=== PATIENT | male | born 1935 | race Caucasian/White ===

== ENCOUNTER 2019-08-11 08:27 | Outpatient (CLI) | payer MEDICARE, OTHER, SELFPAY ==
[2019-08-11 09:06] LABS: Basophils # 0.1 10^3/uL (0.0-0.1); Basophils % 0.5 %; Eosinophils # 0.4 10^3/uL (0.0-0.8); Eosinophils % 2.6 %; Hematocrit 50.9 % (42.0-52.0); Hemoglobin 16.2 g/dL (11.7-16.6); Lymphocytes # 2.2 10^3/uL (0.8-4.8); Lymphocytes % 14.1 %; Mean Corpuscular HGB Conc 31.8 g/dL (30.0-36.0); Mean Corpuscular Hemoglobin 28.7 pg (28.0-34.0); Mean Corpuscular Volume 90.1 fL (80-94); Mean Platelet Volume 10.3 fL (7.4-10.4); Monocytes # 1.9 10^3/uL (0.2-0.9); Monocytes % 12.6 %; Neutrophils # 10.7 10^3/uL (1.8-7.7); Neutrophils % 69.7 %; Nucleated Red Blood Cells % 0 %; Platelet Count 312 10^3/cmm (130-400); Red Blood Count 5.65 10^6/uL (4.1-5.3); Red Cell Distribution Width 14.6 % (12.1-15.1); White Blood Count 15.3 10^3/uL (4.0-10.0)
[2019-08-11 09:25] LABS: Ferritin 57 ng/mL (30-400); Iron 60 ug/dL (59-158); Percent Saturation 22.6 % (20-50); Total Iron Binding Capacity 265 mcg/dl; Unsaturated Iron Binding 205 ug/dL (112-347)
== END 2019-08-11 08:28 | disposition home or self-care (01) ==
LOC: ONCMED 08:31
PROVIDERS: Family Provider Family Medicine; PCP Family Medicine; Visit Provider Internal Medicine Hematology & Oncology
DX: D50.9 Iron deficiency anemia, unspecified (principal)
CPT/HCPCS: 82728; 83540; 83550; 85025

== ENCOUNTER 2019-08-15 08:39 | Outpatient (CLI) | payer MEDICARE, OTHER, SELFPAY ==
--- NOTE | 2019-08-15 09:10 | ONC FU_ITS ---
Dr. Olivo follow up note Patient: Gerardo Pardo Unit #: [id number]: 1935 Dicatated By: Zaid Olivo M.D.Date of Visit:Aug 15, 2019 Onc Med Follow-up/Prog Note History of Present Illness: Mr. Gerardo Pardo, is a 83-year-old gentleman with long-standing history of mild anemia recently started having progressive weakness and palpitation and lab workup done in early August 2018 showed severe anemia, hemoglobin 6.9 g , for which he was given 2 units of packed RBCs with that his hemoglobin improved to 8.9 and his anemia workup done on 09/17/2018 showed low ferritin, 15 , TIBC 391, total iron 16, iron saturation 4%L patient was started on oral iron ferrous sulfate 1 tablet by mouth every other day. Now complaining of indigestion Denies any history of melena hematochezia, denies any history of hemoptysis or hematemesis, denies any history of hematuria, denies any history of jaundice Patient has history of coronary artery disease and recently underwent coronary artery stent placement and he was treated with Plavix and aspirin, as per patient and his daughter after his hemoglobin dropped to 6.9 g Plavix was discontinued and but continued with aspirin.and later on plavix was added Patient has history of bladder cancer diagnosed in 1996 at that time underwent radical cystectomy with neobladder at [facility], no further treatment was needed No history of EGD exam.As per daughter colonoscopy was done 6- 7 years ago in [place] for rectal bleed at that time he was told that it was due to hemorrhoids and couple of benign polyps were also removed Last time parenteral iron Injectafer 750 mg weekly ???2 was given in February 2019 with that follow-up CBC done on 05/12/2019 showed hemoglobin 16.1 hematocrit 48.6 ferritin under 17 TIBC 197 B12 356. Patient was seen by Dr. Falcon for GI evaluation but as per patient evaluation was postponed because of normalization of hemoglobin and iron studies Came for follow-up, denies any specific complaints, no nausea or vomiting, no fever or chills, no melena or hematochezia, no shortness of breath or palpitation, no jaundice. Medications: C 500 2 Tablet (of 500 mg) Oral daily, Cranberry Extract 1 Capsule (of 200 mg) Oral daily, Crestor 1 Tablet (of 20 mg) Oral daily, Methenamine 0.5 Tablet (of 500 mg) b.i.d., Metoprolol Tartrate 0.5 Tablet (of 25 mg) Oral daily, Multi Vitamin/Minerals 1 Tablet Oral daily, Plavix 1 Tablet (of 75 mg) Oral daily, Probiotic 1 Capsule Oral daily, raNITIdine HCl 1 Tablet (of 150 mg) Oral daily, Stool Softener 1 Capsule (of 100 mg) Oral b.i.d. Allergies: No Known Allergies. Review of Systems: Constitutional - Appetite is fair and weight is stable. No fever, chills, hot flashes, or night sweats. Energy level is fair, ENMT - No sinus congestion/drainage. No mouth sores. No sore throat or difficulty swallowing, Hematologic/Lymphatic - No abnormal bruising or bleeding, Respiratory - No shortness of breath. No cough. No pleuritic pain or hemoptysis, Cardiovascular - No angina pain. No palpitations, Gastrointestinal - No nausea or vomiting. No heartburn or acid reflux. No diarrhea or constipation. No blood in the stool or black stools, Genitourinary (M) - No dysuria or hematuria. No urinary frequency. No urgency or incontinence, Musculoskeletal - No joint or bone pain, Neurologic - No headache or dizziness. No numbness/paresthesias or other focal neurologic symptoms, Psychiatric - No anxiety or depression. No insomnia. Vital Signs: Performed on Aug 15, 2019 08:44 Height - 68.00 in Weight - 177.2 lbs (LOW) BSA - 1.94 sq.m BMI - 26.94 Temperature - 98.2 F (LOW) Pulse - 88 /min Respiration - 18 /min BP - 149/67 mm(hg) (HIGH) O2 Sat - 98 % Pain - 0 Performance Status: 0 - Fully active, able to carry on all predisease activities without restrictions. (ECOG) Physical Examination: ENMT - No oral exudates, ulcers, masses, thrush or mucositis. Oropharynx clear. Tongue normal, Respiratory - Lungs are clear to auscultation without rhonchi or wheezing, Cardiovascular - Regular rate and rhythm of heart, Abdomen - Non-tender, non-distended, Good bowel sounds. No guarding or rebound tenderness. No pulsatile masses, Extremities - no edema. Lab/Imaging: Test performed on May 12, 2019 10:05 Ferritin 117.0 ng/ml Iron 56 ug/dL Vitamin B12 356 pg/mL % Iron Saturation 22.1 % UIBC 197 ug/dL WBC 10.0 10 3/uL RBC 5.87 10 6/uL HGB 16.1 g/dL HCT 48.6 % MCV 82.8 fl MCH 27.4 pg MCHC 33.1 g/dl RDW 19.6 % Platelet Count 301 10 3/cmm MPV 10.1 fl Neutrophils 6.9 10 3/uL Lymphocytes 1.9 10 3/uL Monocytes 1.0 10 3/uL Eosinophils 0.2 10 3/uL Basophils 0.1 10 3/uL Neutrophil % 69.2 % Lymphocyte % 18.5 % Monocyte % 9.6 % Eosinophil % 1.9 % Basophils % 0.5 % Impression: Microcytic hypochromic anemia due to iron deficiency due to chronic GI blood loss or malabsorption but most likely due to chronic blood loss. Iron studies done on 09/17/2018 showed ferritin 15 L, TIBC 391, iron saturation 4%, reticulocyte count 3.5% as per patient , Status post 2 units of packed RBCs for hemoglobin 6.9 in early August 2018 Status post Injectafer 750 mg weekly ???2 and August 2018 with good response and repeated again in February 2019 for development of iron deficiency anemia again. Last colonoscopy was done 6-7 years ago for rectal bleeding, as per daughter it was due to hemorrhoids and couple of benign polyps were removed. Plan: Discussed with patient regarding his labs white blood count 15.3 hemoglobin 16.2 crit 50.9 platelets 312,000 ferritin 57 compared 117 on 05/12/2019, iron 60 and Clinically, patient is doing well, denies any new symptoms, more energetic, his follow-up lab shows hemoglobin still in normal range although ferritin level has gone down to 57 from 117, 3 months ago after Injectafer infusion. We'll continue to monitor and he will return to clinic in 2 months with CBC and iron studies and if there is a drop in his iron stores or hemoglobin, we'll consider Injectafer. Again ,discussed with patient regarding reasons for drop in his ferritin level which could be due to iron malabsorption or chronic GI blood loss, patient was supposed to see Dr. Falcon for GI evaluation, somehow, patient had decided to postpone it, patient was advised to reconsider it especially if hemoglobin/iron stores continued to go down. Signed By: Zaid Olivo M.D. <<Signature on File>>
== END 2019-08-15 08:40 | disposition home or self-care (01) ==
LOC: ONCMED 08:43
PROVIDERS: Family Provider Family Medicine; PCP Family Medicine; Visit Provider Internal Medicine Hematology & Oncology
DX: D50.9 Iron deficiency anemia, unspecified (principal); I25.10 Atherosclerotic heart disease of native coronary artery without angina pectoris; Z79.899 Other long term (current) drug therapy; Z79.02 Long term (current) use of antithrombotics/antiplatelets; Z79.82 Long term (current) use of aspirin; Z95.5 Presence of coronary angioplasty implant and graft; Z85.51 Personal history of malignant neoplasm of bladder; Z86.010 Personal history of colon polyps; Z90.6 Acquired absence of other parts of urinary tract
CPT/HCPCS: G0463

== ENCOUNTER 2019-10-20 13:37 | Outpatient (CLI) | payer MEDICARE, OTHER, SELFPAY ==
[2019-10-20 14:02] LABS: Basophils # 0.1 10^3/uL (0.0-0.1); Basophils % 0.6 %; Eosinophils # 0.5 10^3/uL (0.0-0.8); Eosinophils % 3.8 %; Hematocrit 47.3 % (42.0-52.0); Hemoglobin 15.7 g/dL (11.7-16.6); Lymphocytes # 3.2 10^3/uL (0.8-4.8); Lymphocytes % 25.2 %; Mean Corpuscular HGB Conc 33.2 g/dL (30.0-36.0); Mean Corpuscular Hemoglobin 29.2 pg (28.0-34.0); Mean Corpuscular Volume 88.1 fL (80-94); Mean Platelet Volume 9.9 fL (7.4-10.4); Monocytes # 1.7 10^3/uL (0.2-0.9); Monocytes % 13.1 %; Neutrophils # 7.2 10^3/uL (1.8-7.7); Neutrophils % 56.8 %; Nucleated Red Blood Cells % 0 %; Platelet Count 350 10^3/cmm (130-400); Red Blood Count 5.37 10^6/uL (4.1-5.3); Red Cell Distribution Width 14.6 % (12.1-15.1); White Blood Count 12.7 10^3/uL (4.0-10.0)
[2019-10-20 14:20] LABS: Ferritin 59 ng/mL (30-400); Iron 57 ug/dL (59-158); Percent Saturation 20.2 % (20-50); Total Iron Binding Capacity 281 mcg/dl; Unsaturated Iron Binding 224 ug/dL (112-347)
== END 2019-10-20 13:38 | disposition home or self-care (01) ==
LOC: ONCMED 13:42
PROVIDERS: Family Provider Family Medicine; PCP Family Medicine; Visit Provider Internal Medicine Hematology & Oncology
DX: D50.9 Iron deficiency anemia, unspecified (principal)
CPT/HCPCS: 36415; 82728; 83540; 83550; 85025

== ENCOUNTER 2020-02-14 09:45 | Outpatient (CLI) | payer MEDICARE, OTHER, SELFPAY ==
[2020-02-14 10:10] LABS: Basophils # 0.1 10^3/uL (0.0-0.1); Basophils % 0.6 %; Eosinophils # 0.3 10^3/uL (0.0-0.8); Eosinophils % 2.6 %; Hemoglobin 15.5 g/dL (11.7-16.6); Lymphocytes # 2.4 10^3/uL (0.8-4.8); Lymphocytes % 21.3 %; Mean Corpuscular Volume 87.9 fL (80-94); Mean Platelet Volume 10.1 fL (7.4-10.4); Monocytes # 1.4 10^3/uL (0.2-0.9); Monocytes % 12.2 %; Neutrophils % 62.8 %; Nucleated Red Blood Cells % 0 %; Platelet Count 334 10^3/cmm (130-400); Red Blood Count 5.35 10^6/uL (4.1-5.3); Red Cell Distribution Width 14.3 % (12.1-15.1); White Blood Count 11.2 10^3/uL (4.0-10.0)
[2020-02-14 10:29] LABS: Ferritin 83 ng/mL (30-400); Iron 67 ug/dL (59-158); Percent Saturation 26.8 % (20-50); Total Iron Binding Capacity 250 mcg/dl; Unsaturated Iron Binding 183 ug/dL (112-347)
== END 2020-02-14 09:46 | disposition home or self-care (01) ==
PROVIDERS: PCP Family Medicine; Visit Provider Internal Medicine Hematology & Oncology
DX: D50.9 Iron deficiency anemia, unspecified (principal)
CPT/HCPCS: 36415; 82728; 83540; 83550; 85025

== ENCOUNTER 2020-04-19 14:57 | Outpatient (CLI) | payer MEDICARE, OTHER, SELFPAY ==
[2020-04-19 16:13] LABS: Basophils # 0.1 10^3/uL (0.0-0.1); Basophils % 0.6 %; Eosinophils # 0.3 10^3/uL (0.0-0.8); Eosinophils % 3.3 %; Hematocrit 45.9 % (42.0-52.0); Hemoglobin 14.7 g/dL (11.7-16.6); Lymphocytes # 2.4 10^3/uL (0.8-4.8); Lymphocytes % 24.8 %; Mean Corpuscular Hemoglobin 28.4 pg (28.0-34.0); Mean Corpuscular Volume 88.8 fL (80-94); Mean Platelet Volume 10.9 fL (7.4-10.4); Monocytes # 1.5 10^3/uL (0.2-0.9); Monocytes % 15.2 %; Neutrophils # 5.43 10^3/uL (1.8-7.7); Neutrophils % 55.5 %; Nucleated Red Blood Cells % 0 %; Platelet Count 300 10^3/cmm (130-400); Red Blood Count 5.17 10^6/uL (4.1-5.3); Red Cell Distribution Width 14.8 % (12.1-15.1); White Blood Count 9.8 10^3/uL (4.0-10.0)
[2020-04-19 16:21] LABS: Alanine Aminotransferase 10 U/L (0-41); Albumin Level 3.8 g/dL (3.5-5.2); Alkaline Phosphatase 79 IU/L (40-130); Blood Urea Nitrogen 18 mg/dL (8-23); Calcium 9.4 mg/dL (8.5-10.5); Carbon Dioxide 25 mmol/L (22-29); Chloride 108 mmol/L (98-107); Ferritin 52 ng/mL (30-400); Globulin 2.5 g/dL (1.3-4.6); Glucose 133 mg/dL (65-115); Iron 43 ug/dL (59-158); Osmolality Calculated 300 mOsm/kg (285-295); Sodium 143 mmol/L (136-145); Total Bilirubin 0.2 mg/dL (0.15-1.2); Total Protein 6.3 g/dL (6.6-8.7)
[2020-04-19 16:27] LABS: Aspartate Amino Transferase 15 U/L (0-40)
--- NOTE | 2020-04-19 16:48 | ONC FU_ITS ---
Dr. Olivo follow up note Patient: Gerardo Pardo Unit #: [id number]: 1935 Dicatated By: Zaid Olivo M.D.Date of Visit:Apr 19, 2020 Onc Med Follow-up/Prog Note History of Present Illness: Mr. Gerardo Pardo, is a 84-year-old gentleman with long-standing history of mild anemia recently started having progressive weakness and palpitation and lab workup done in early August 2018 showed severe anemia, hemoglobin 6.9 g , for which he was given 2 units of packed RBCs with that his hemoglobin improved to 8.9 and his anemia workup done on 09/17/2018 showed low ferritin, 15 , TIBC 391, total iron 16, iron saturation 4%L patient was started on oral iron ferrous sulfate 1 tablet by mouth every other day. Now complaining of indigestion Denies any history of melena hematochezia, denies any history of hemoptysis or hematemesis, denies any history of hematuria, denies any history of jaundice Patient has history of coronary artery disease and recently underwent coronary artery stent placement and he was treated with Plavix and aspirin, as per patient and his daughter after his hemoglobin dropped to 6.9 g Plavix was discontinued and but continued with aspirin.and later on plavix was added Patient has history of bladder cancer diagnosed in 1996 at that time underwent radical cystectomy with neobladder at [facility], no further treatment was needed No history of EGD exam.As per daughter colonoscopy was done 6- 7 years ago in [place] for rectal bleed at that time he was told that it was due to hemorrhoids and couple of benign polyps were also removed Last time parenteral iron Injectafer 750 mg weekly ???2 was given in February 2019 with that follow-up CBC done on 05/12/2019 showed hemoglobin 16.1 hematocrit 48.6 ferritin under 17 TIBC 197 B12 356. Patient was seen by Dr. Falcon for GI evaluation but as per patient evaluation was postponed because of normalization of hemoglobin and iron studies Came for follow-up, denies any specific complaints, no fever chills, no nausea or vomiting, no diarrhea or constipation, no palpitation no shortness of breath. No jaundice Medications: C 500 2 Tablet (of 500 mg) Oral daily, Cranberry Extract 1 Capsule (of 200 mg) Oral daily, Crestor 1 Tablet (of 20 mg) Oral daily, Methenamine 0.5 Tablet (of 500 mg) b.i.d., Metoprolol Tartrate 0.5 Tablet (of 25 mg) Oral daily, Multi Vitamin/Minerals 1 Tablet Oral daily, Plavix 1 Tablet (of 75 mg) Oral daily, Probiotic 1 Capsule Oral daily, raNITIdine HCl 1 Tablet (of 150 mg) Oral daily, Stool Softener 1 Capsule (of 100 mg) Oral b.i.d. Allergies: No Known Allergies. Review of Systems: Constitutional - Appetite is fair and weight is stable. No fever, chills, hot flashes, or night sweats. Energy level is fair, ENMT - No sinus congestion/drainage. No mouth sores. No sore throat or difficulty swallowing, Hematologic/Lymphatic - No abnormal bruising or bleeding, Respiratory - No shortness of breath. No cough. No pleuritic pain or hemoptysis, Cardiovascular - No angina pain. No palpitations, Gastrointestinal - No nausea or vomiting. No heartburn or acid reflux. No diarrhea or constipation. No blood in the stool or black stools, Genitourinary (M) - No dysuria or hematuria. No urinary frequency. No urgency or incontinence, Musculoskeletal - No joint or bone pain, Neurologic - No headache or dizziness. No numbness/paresthesias or other focal neurologic symptoms, Psychiatric - No anxiety or depression. No insomnia. Vital Signs: Performed on Apr 19, 2020 16:25 Height - 68.00 in Weight - 172.2 lbs (LOW) BSA - 1.92 sq.m BMI - 26.18 Temperature - 98.6 F Pulse - 70 /min Respiration - 18 /min BP - 145/76 mm(hg) (HIGH) O2 Sat - 96 % Pain - 0 Performance Status: 0 - Fully active, able to carry on all predisease activities without restrictions. (ECOG) Physical Examination: ENMT - No mouth sores, no thrush, no jaundice, Respiratory - Lungs are clear to auscultation, Cardiovascular - Regular rate and rhythm of heart, Abdomen - Soft, bowel sounds present, Extremities - No visible edema. Lab/Imaging: Test performed on Feb 14, 2020 09:58 Ferritin 83 ng/mL Iron 67 mcg/dL Iron Binding Capacity (TIBC) 250 mcg/dl % Iron Saturation 26.8 % UIBC 183 mcg/dL WBC 11.2 10 3/uL RBC 5.35 10 6/uL HGB 15.5 g/dL HCT 47.0 % MCV 87.9 fL MCH 29.0 pg MCHC 33.0 g/dL RDW 14.3 % Platelet Count 334 10 3/cmm MPV 10.1 fL Neutrophils 7.00 10 3/uL Lymphocytes 2.4 10 3/uL Monocytes 1.4 10 3/uL Eosinophils 0.3 10 3/uL Basophils 0.1 10 3/uL Neutrophil % 62.8 % Lymphocyte % 21.3 % Monocyte % 12.2 % Eosinophil % 2.6 % Basophils % 0.6 % NRBC % 0 % Impression: Microcytic hypochromic anemia due to iron deficiency due to chronic GI blood loss or malabsorption but most likely due to chronic blood loss. Iron studies done on 09/17/2018 showed ferritin 15 L, TIBC 391, iron saturation 4%, reticulocyte count 3.5% as per patient , Status post 2 units of packed RBCs for hemoglobin 6.9 in early August 2018 Status post Injectafer 750 mg weekly ???2 and August 2018 with good response and repeated again in February 2019 for development of iron deficiency anemia again. Last colonoscopy was done 6-7 years ago for rectal bleeding, as per daughter it was due to hemorrhoids and couple of benign polyps were removed. Plan: Discussed with patient regarding his labs white blood count 9.8 hemoglobin 14.7 crit 45.9 platelets 300,000 ferritin 52 compared to 83 on February 14, 2020, creatinine 0.8, sodium 143 Clinically, patient doing well with no new signs symptoms, no evidence of gross bleeding, his follow-up labs shows mild drop in his hemoglobin but still in normal range and further drop in ferritin, will continue to monitor and return to clinic in 3 months with CBC and iron studies. Signed By: Zaid Olivo M.D. <<Signature on File>>
[2020-04-20 03:34] LABS: Percent Saturation 14.9 % (20-50); Total Iron Binding Capacity 287 mcg/dl; Unsaturated Iron Binding 244 ug/dL (112-347)
== END 2020-04-19 14:58 | disposition home or self-care (01) ==
PROVIDERS: PCP Family Medicine; Visit Provider Internal Medicine Hematology & Oncology
DX: D50.9 Iron deficiency anemia, unspecified (principal); K64.9 Unspecified hemorrhoids; Z86.010 Personal history of colon polyps
CPT/HCPCS: 36415; 80053; 82728; 83540; 83550; 85025; G0463

== ENCOUNTER 2020-07-20 08:12 | Outpatient (CLI) | payer MEDICARE, OTHER, SELFPAY ==
[2020-07-20 09:13] LABS: Basophils # 0.1 10^3/uL (0.0-0.1); Basophils % 0.7 %; Eosinophils # 0.4 10^3/uL (0.0-0.8); Eosinophils % 3.1 %; Hematocrit 42.6 % (42.0-52.0); Hemoglobin 13.9 g/dL (11.7-16.6); Lymphocytes # 3.1 10^3/uL (0.8-4.8); Lymphocytes % 25.2 %; Mean Corpuscular HGB Conc 32.6 g/dL (30.0-36.0); Mean Corpuscular Hemoglobin 28.1 pg (28.0-34.0); Mean Corpuscular Volume 86.2 fL (80-94); Mean Platelet Volume 10.8 fL (7.4-10.4); Monocytes # 1.6 10^3/uL (0.2-0.9); Monocytes % 12.9 %; Neutrophils # 7.01 10^3/uL (1.8-7.7); Neutrophils % 57.8 %; Nucleated Red Blood Cells % 0 %; Platelet Count 343 10^3/cmm (130-400); Red Blood Count 4.94 10^6/uL (4.1-5.3); Red Cell Distribution Width 14.6 % (12.1-15.1); White Blood Count 12.1 10^3/uL (4.0-10.0)
[2020-07-20 09:33] LABS: Ferritin 31 ng/mL (30-400); Iron 79 ug/dL (59-158); Percent Saturation 27.2 % (20-50); Total Iron Binding Capacity 290 mcg/dl; Unsaturated Iron Binding 211 ug/dL (112-347)
--- NOTE | 2020-07-20 10:04 | ONC FU_ITS ---
Dr. Olivo follow up note Patient: Gerardo Pardo Unit #: [id number]: 1935 Dicatated By: Zaid Olivo M.D.Date of Visit:Jul 20, 2020 Onc Med Follow-up/Prog Note History of Present Illness: Mr. Gerardo Pardo, is a 84-year-old gentleman with long-standing history of mild anemia recently started having progressive weakness and palpitation and lab workup done in early August 2018 showed severe anemia, hemoglobin 6.9 g , for which he was given 2 units of packed RBCs with that his hemoglobin improved to 8.9 and his anemia workup done on 09/17/2018 showed low ferritin, 15 , TIBC 391, total iron 16, iron saturation 4%L patient was started on oral iron ferrous sulfate 1 tablet by mouth every other day. Now complaining of indigestion Denies any history of melena hematochezia, denies any history of hemoptysis or hematemesis, denies any history of hematuria, denies any history of jaundice Patient has history of coronary artery disease and recently underwent coronary artery stent placement and he was treated with Plavix and aspirin, as per patient and his daughter after his hemoglobin dropped to 6.9 g Plavix was discontinued and but continued with aspirin.and later on plavix was added Patient has history of bladder cancer diagnosed in 1996 at that time underwent radical cystectomy with neobladder at [facility], no further treatment was needed No history of EGD exam.As per daughter colonoscopy was done 6- 7 years ago in [place] for rectal bleed at that time he was told that it was due to hemorrhoids and couple of benign polyps were also removed Last time parenteral iron Injectafer 750 mg weekly ???2 was given in February 2019 with that follow-up CBC done on 05/12/2019 showed hemoglobin 16.1 hematocrit 48.6 ferritin under 17 TIBC 197 B12 356. Patient was seen by Dr. Falcon for GI evaluation but as per patient evaluation was postponed because of normalization of hemoglobin and iron studies Came for follow-up, denies any specific complaints, no fever chills, no nausea or vomiting, no diarrhea or constipation, no melena or hematochezia, no shortness of breath or palpitation, no jaundice Medications: C 500 2 Tablet (of 500 mg) Oral daily, Cranberry Extract 1 Capsule (of 200 mg) Oral daily, Crestor 1 Tablet (of 20 mg) Oral daily, Methenamine 0.5 Tablet (of 500 mg) b.i.d., Metoprolol Tartrate 0.5 Tablet (of 25 mg) Oral daily, Multi Vitamin/Minerals 1 Tablet Oral daily, Plavix 1 Tablet (of 75 mg) Oral daily, Probiotic 1 Capsule Oral daily, Stool Softener 1 Capsule (of 100 mg) Oral b.i.d. Allergies: No Known Allergies. Review of Systems: Constitutional - Complains of mild fatigue. Denies appetite, fever, night sweats and weight change, Allergic/Immunologic - Denies allergies, Eyes - Denies blurred vision and double vision, ENMT - Denies dysphagia, ear pain, epistaxis, problems with hearing, mouth dryness, stomatitis, altered taste and tinnitus, Endocrine - Denies diabetes and thyroid disease, Hematologic/Lymphatic - Complains of easy bruising. Denies lymph node tenderness, Respiratory - Complains of a mild cough which is non-productive. Complains of mild dyspnea associated with normal activity. Denies hemoptysis and wheezing, Cardiovascular - Denies arrhythmias, chest pain and edema, Gastrointestinal - Complains of heartburn / dyspepsia. Denies abdominal pain, constipation, diarrhea, melena / GI bleeding, nausea and vomiting, Genitourinary (M) - Complains of nocturia occasionally. Denies dysuria, frequency, hematuria and urgency, Musculoskeletal - Complains of arthritis. Denies bone pain, joint pain and muscle weakness, Integumentary - Denies rash, Neurologic - Denies disorientation, dizziness, abnormal gait and headaches, Psychiatric - Denies depression. Vital Signs: Performed on Jul 20, 2020 09:09 Height - 68.00 in Weight - 174.2 lbs (HIGH) BSA - 1.93 sq.m BMI - 26.49 Temperature - 98.4 F Pulse - 80 /min Respiration - 20 /min BP - 110/70 mm(hg) O2 Sat - 95 % (LOW) Pain - 0 Performance Status: 1 - No physically strenuous activity, but ambulatory and able to carry out light or sedentary work (e.g. office work, light house work). (ECOG) Physical Examination: ENMT - No mouth sores, no thrush, no jaundice, Respiratory - Lungs are clear to auscultation, Cardiovascular - Regular rate and rhythm of heart, Abdomen - Soft, bowel sounds present, Extremities - No visible edema. Lab/Imaging: Test performed on Apr 19, 2020 15:35 Ferritin 52 ng/mL Iron 43 mcg/dL Sodium 143 mmol/L Iron Binding Capacity (TIBC) 287 mcg/dl Potassium 4.0 mmol/L % Iron Saturation 14.9 % Chloride 108 mmol/L CO2 25 mmol/L UIBC 244 mcg/dL Anion Gap 14.0 BUN 18 mg/dL Creatinine 0.8 mg/dL Cr Clearance (Est) 74.58 mL/min Glucose 133 mg/dL Osmolality - Calculated 300 mOsm/kg Calcium 9.4 mg/dL Protein, Total 6.3 g/dL Albumin 3.8 g/dL Globulin 2.5 g/dL Bilirubin, Total 0.2 mg/dL ALT (SGPT) 10 U/L AST (SGOT) 15 U/L Alkaline Phosphatase 79 IU/L WBC 9.8 10 3/uL RBC 5.17 10 6/uL HGB 14.7 g/dL HCT 45.9 % MCV 88.8 fL MCH 28.4 pg MCHC 32.0 g/dL RDW 14.8 % Platelet Count 300 10 3/cmm MPV 10.9 fL Neutrophils 5.43 10 3/uL Lymphocytes 2.4 10 3/uL Monocytes 1.5 10 3/uL Eosinophils 0.3 10 3/uL Basophils 0.1 10 3/uL Neutrophil % 55.5 % Lymphocyte % 24.8 % Monocyte % 15.2 % Eosinophil % 3.3 % Basophils % 0.6 % NRBC % 0 % Impression: Microcytic hypochromic anemia due to iron deficiency due to chronic GI blood loss or malabsorption but most likely due to chronic blood loss. Iron studies done on 09/17/2018 showed ferritin 15 L, TIBC 391, iron saturation 4%, reticulocyte count 3.5% as per patient , Status post 2 units of packed RBCs for hemoglobin 6.9 in early August 2018 Status post Injectafer 750 mg weekly ???2 and August 2018 with good response and repeated again in February 2019 for development of iron deficiency anemia again. Last colonoscopy was done 6-7 years ago for rectal bleeding, as per daughter it was due to hemorrhoids and couple of benign polyps were removed. Plan: Discussed with patient regarding his labs white blood count 12.1 hemoglobin 13.9 g hematocrit 42.6 platelets 343,000 iron studies shows ferritin 31 compared to 52 on April 19, 2020 iron 79 iron saturation 27.2% TIBC 290 Clinically, patient is doing well with no new signs symptoms, his follow-up CBC shows hemoglobin still in normal range and further drop in his iron stores but still in normal range, will continue to monitor return to clinic in 2 months with CBC and iron studies. Signed By: Zaid Olivo M.D. <<Signature on File>>
== END 2020-07-20 08:13 | disposition home or self-care (01) ==
LOC: ONCMED 08:14
PROVIDERS: PCP Family Medicine; Visit Provider Internal Medicine Hematology & Oncology
DX: D50.9 Iron deficiency anemia, unspecified (principal); Z86.010 Personal history of colon polyps
CPT/HCPCS: 36415; 82728; 83540; 83550; 85025; G0463

== ENCOUNTER 2020-09-19 09:47 | Outpatient (CLI) | payer MEDICARE, OTHER, SELFPAY ==
[2020-09-19 10:07] LABS: Basophils # 0.1 10^3/uL (0.0-0.1); Basophils % 0.5 %; Hematocrit 44.3 % (42.0-52.0); Hemoglobin 14.1 g/dL (11.7-16.6); Lymphocytes # 2.7 10^3/uL (0.8-4.8); Lymphocytes % 26.1 %; Mean Corpuscular HGB Conc 31.8 g/dL (30.0-36.0); Mean Corpuscular Hemoglobin 27.9 pg (28.0-34.0); Mean Corpuscular Volume 87.5 fL (80-94); Mean Platelet Volume 10.5 fL (7.4-10.4); Monocytes # 1.1 10^3/uL (0.2-0.9); Monocytes % 10.4 %; Neutrophils # 6.42 10^3/uL (1.8-7.7); Neutrophils % 62.3 %; Nucleated Red Blood Cells % 0 %; Platelet Count 335 10^3/cmm (130-400); Red Blood Count 5.06 10^6/uL (4.1-5.3); Red Cell Distribution Width 14.7 % (12.1-15.1); White Blood Count 10.3 10^3/uL (4.0-10.0)
[2020-09-19 10:30] LABS: Ferritin 20 ng/mL (30-400); Iron 46 ug/dL (59-158); Percent Saturation 14.6 % (20-50); Total Iron Binding Capacity 313 mcg/dl; Unsaturated Iron Binding 267 ug/dL (112-347)
--- NOTE | 2020-09-30 13:58 | ONC FU_ITS ---
Marisa Lawson Patient Note Patient: Gerardo Pardo Unit #: [id number]: 1935 Dictated By: Elisabeth MenendezDate of Visit: Sep 19, 2020 Onc MED Follow-Up/Prog Note Chief Complaint: Iron deficiency anemia History of Present Illness: Mr. Pardo is an 85-year-old gentleman with long-standing history of mild anemia. He started having progressive weakness and palpitations in early August 2018. His lab work up at that time showed severe anemia, hemoglobin 6.9 g , for which he was given 2 units of packed RBCs. With the transfusion services, his hemoglobin improved to 8.9. His anemia workup on 09/17/2018 showed low ferritin 15 , TIBC 391, total iron 16, iron saturation 4%. Mr Pardo was started on oral iron ferrous sulfate 1 tablet by mouth every other day. He had difficulty tolerating oral iron due to GI distress. He denied any history of melena, hematochezia, hemoptysis or hematemesis. He had not had any history of hematuria or jaundice. Mr Pardo has history of coronary artery disease and underwent coronary artery stent placement. He was treated with Plavix and aspirin, as per patient and his daughter after his hemoglobin dropped to 6.9 g Plavix was discontinued and but continued with aspirin.and later on plavix was added again. Patient has history of bladder cancer diagnosed in 1996 at that time underwent radical cystectomy with neobladder at [facility], no further treatment was needed No history of EGD exam. As per daughter colonoscopy was done 6- 7 years ago in [place] for rectal bleed at that time he was told that it was due to hemorrhoids and couple of benign polyps were also removed Last time parenteral iron Injectafer 750 mg weekly ???2 was given in February 2019 with that follow-up CBC done on 05/12/2019 showed hemoglobin 16.1 hematocrit 48.6 ferritin under 17 TIBC 197 B12 356. Patient was seen by Dr. Falcon for GI evaluation but as per patient evaluation was postponed because of normalization of hemoglobin and iron studies Mr. Pardo is followed by Dr. Olivo. His last visit with Dr. Olivo was July 20, 2020. He was doing well at that time and continue to have a normal hemoglobin. Mr. Pardo is here today for follow-up. He states overall he is doing well. He states he feels good. His energy is good. He has had some urine Gil tract infection off and on but follows with Dr. Herbert for this. He sees him again in November 2020. He has no current symptoms. He denies any new shortness of breath orthopnea. He has had no cravings. He states again his energy is really good. He denies any nausea or vomiting. He has had no evidence of bleeding or bruising. He states his bowel function is normal for him. He denies any lower extremity edema. He denies any chest pain or palpitations. His ECOG is 0. Past Medical History: Myocardial infarction in 2018 Bladder infection sepsis in 2016 Past Surgical History: Stents x2 in 2018 Neobladder in 1996 Elbow /nerve in 1971 Allergies: No Known Allergies. Medications: C 500 2 Tablet (of 500 mg) Oral daily Cranberry Extract 1 Capsule (of 200 mg) Oral daily Crestor 1 Tablet (of 20 mg) Oral daily Methenamine 0.5 Tablet (of 500 mg) b.i.d. Metoprolol Tartrate 0.5 Tablet (of 25 mg) Oral daily Multi Vitamin/Minerals 1 Tablet Oral daily Plavix 1 Tablet (of 75 mg) Oral daily Probiotic 1 Capsule Oral daily Stool Softener 1 Capsule (of 100 mg) Oral b.i.d. Family History: Mr. Pardo's mother at age 72: congestive heart failure. Mr. Pardo's father at age 88: colon cancer, and stroke. Mr. Pardo has 1 sister who is alive: heart condition. Social History: Mr. Pardo is single and he is retired. He is a daily smoker who has smoked 0.5 packs/day for 64 years. He drinks occasionally. alcohol consumption is an occasional occurance about twice a month. Review Of Symptoms: see above Vital Signs: Performed on Sep 19, 2020 12:10 Height - 68.00 in Weight - 175.8 lbs (HIGH) BSA - 1.93 sq.m BMI - 26.73 Temperature - 98.1 F (LOW) Pulse - 72 /min Respiration - 18 /min BP - 127/73 mm(hg) O2 Sat - 98 % Pain - 0,0 - Fully active, able to carry on all predisease activities without restrictions. (ECOG) Physical Examination: Constitutional Alert, oriented, no acute distress. Skin pink, warm and dry. Head Normocephalic; atraumatic. Eyes Conjunctivae and sclerae are clear and without icterus. Pupils are reactive and equal. Neck No jugular venous distension. Hematologic/Lymphatic No petechiae or purpura. Respiratory Lungs are clear to auscultation without rhonchi or wheezing. Cardiovascular Regular rate and rhythm of heart without murmurs,clicks, gallops or rubs. Back/Spine Non-tender to palpation. Extremities No visible deformities, no cyanosis, clubbing or edema. Musculoskeletal No tenderness or swelling, normal range of motion without obvious weakness. Integumentary No rashes or lesions. Neurologic No sensory or motor deficits, normal cerebellar function, normal gait. Psychiatric Alert and oriented times three. Coherent speech. Verbalizes understanding of our discussions today. Laboratory:Test performed on Sep 19, 2020 09:56 Ferritin 20 ng/mL Iron 46 mcg/dL Iron Binding Capacity (TIBC) 313 mcg/dl % Iron Saturation 14.6 % UIBC 267 mcg/dL WBC 10.3 10 3/uL RBC 5.06 10 6/uL HGB 14.1 g/dL HCT 44.3 % MCV 87.5 fL MCH 27.9 pg MCHC 31.8 g/dL RDW 14.7 % Platelet Count 335 10 3/cmm MPV 10.5 fL Neutrophils 6.42 10 3/uL Lymphocytes 2.7 10 3/uL Monocytes 1.1 10 3/uL Eosinophils 0.0 10 3/uL Basophils 0.1 10 3/uL Neutrophil % 62.3 % Lymphocyte % 26.1 % Monocyte % 10.4 % Eosinophil % 0.0 % Basophils % 0.5 % NRBC % 0 % Test performed on Apr 19, 2020 15:35 Sodium 143 mmol/L Potassium 4.0 mmol/L Chloride 108 mmol/L CO2 25 mmol/L Anion Gap 14.0 BUN 18 mg/dL Creatinine 0.8 mg/dL Cr Clearance (Est) 74.58 mL/min Glucose 133 mg/dL Osmolality - Calculated 300 mOsm/kg Calcium 9.4 mg/dL Protein, Total 6.3 g/dL Albumin 3.8 g/dL Globulin 2.5 g/dL Bilirubin, Total 0.2 mg/dL ALT (SGPT) 10 U/L AST (SGOT) 15 U/L Alkaline Phosphatase 79 IU/L Impression: Microcytic hypochromic anemia due to iron deficiency due to chronic GI blood loss or malabsorption but most likely due to chronic blood loss. Iron studies done on 09/17/2018 showed ferritin 15 L, TIBC 391, iron saturation 4%, reticulocyte count 3.5% as per patient , Status post 2 units of packed RBCs for hemoglobin 6.9 in early August 2018 Status post Injectafer 750 mg weekly ???2 and August 2018 with good response and repeated again in February 2019 for development of iron deficiency anemia again. Last colonoscopy was done 6-7 years ago for rectal bleeding, as per daughter it was due to hemorrhoids and couple of benign polyps were removed. Plan: PROBLEMS ADDRESSED TODAY 1. Anemia due to iron deficiency A. Today's labs reviewed in detail and discussed with Mr. Pardo and his daughter, Shantel and a copy was given to them. WBC 10.3, hemoglobin 14.1, hematocrit 44.3, platelets 335,000 ANC is 6420. His iron saturation is 14.6% ferritin is 20 iron is 46 TIBC is 313. B. We discussed that his iron saturations are dropping. In July his iron was 31 his iron saturation was 27.2. His iron saturation in April was 14.9 at which time his ferritin was 52. We could check them again in 1 month to see if they are dropping into make sure his hemoglobin is not starting to drop. Is advised to call if he has any symptoms of fatigue, shortness of breath palpitations or chest pain or any other symptoms that would make him consider that he is starting to become anemic. C. We will plan for follow-up again in 3 months with CBC CMP ferritin and iron studies. D. Mr. Pardo and his daughter were encouraged to contact us in the interim should questions or problems arise. Signed By: Yaneth Menendez. -, AOP Zaid Olivo MD <<Signature on File>>
== END 2020-09-19 09:48 | disposition home or self-care (01) ==
LOC: ONCMED 09:49
PROVIDERS: PCP Family Medicine; Visit Provider Internal Medicine Hematology & Oncology
DX: D50.0 Iron deficiency anemia secondary to blood loss (chronic) (principal); Z79.899 Other long term (current) drug therapy
CPT/HCPCS: 82728; 83540; 83550; 85025; 99214

== ENCOUNTER → 2020-10-26 11:51 | Outpatient (BNVA) | payer MEDICARE, OTHER, SELFPAY | PROVIDERS: PCP Family Medicine; Visit Provider Nurse Practitioner Family | DX: N39.0 Urinary tract infection, site not specified (principal) | CPT/HCPCS: 81003; 87086 ==

== ENCOUNTER 2020-11-28 14:14 | Outpatient (CLI) | payer MEDICARE, OTHER, SELFPAY ==
--- NOTE | 2020-11-28 08:00 | US_ITS ---
WS: [id number] RENAL ULTRASOUND HISTORY: HX OF BLADDER CANCER COMPARISON: 12/03/2017 and 08/06/2018 TECHNIQUE: 2-D and color Doppler imaging of the kidney submitted. Right kidney: 11.1 cm x 5.7 cm x 4.8 cm. Normal size kidney. Lobulated cortex. No hydronephrosis. Cortical scarring is not as well demonstrate d by ultrasound as seen on a prior CT. There is a small cyst from the upper pole measuring 1.6 x 1.3 x 1.3 cm. Left kidney: 8.8 cm x 5.4 cm x 5.4 cm. Mild atrophy of the kidney. Cortical simple cyst from the mid kidney measures 3.0 x 3.1 x 2.9 cm. The re is an additional smaller cysts from the lower pole. No solid mass or obstruction. Aorta: Mild ectasia. No aneurysm. Urinary Bladder: Well-distended neobladder in the pelvis. No intraluminal filling defect. US/US renal BI* [id number] IMPRESSION: 1. Bilateral renal cysts as described above. No solid mass or obstruction. 2. Mild atrophy LEFT kidney. 3. Unremarkable neobladder in the pelvis.
--- NOTE | 2020-11-28 08:45 | XR_ITS ---
WS: [id number] KUB, AP view, 11/28/2020 Clinical Data: HX OF URINARY DIVERSION Comparison: KUB, 12/03/2017 Findings: There are bilateral calcifications overlying the kidneys. The calcifications have not changed from th e prior study. There are clips on both sides of the true pelvis from a cystectomy. The bowel gas pattern is unremarkable. XR/XR KUB [id number] Impression: 1. Bilateral renal calculi unchanged. 2. Cystectomy.
== END 2020-11-28 14:15 | disposition home or self-care (01) ==
LOC: RAD 14:19
PROVIDERS: PCP Family Medicine; Visit Provider Urology
DX: Z98.890 Other specified postprocedural states (principal); Z85.51 Personal history of malignant neoplasm of bladder; N20.0 Calculus of kidney; N26.1 Atrophy of kidney (terminal)
CPT/HCPCS: 74018; 76770; 81003

== ENCOUNTER 2020-12-21 10:24 | Outpatient (CLI) | payer MEDICARE, OTHER, SELFPAY ==
[2020-12-21 11:28] LABS: Basophils # 0.1 10^3/uL (0.0-0.1); Basophils % 0.6 %; Eosinophils # 0.2 10^3/uL (0.0-0.8); Eosinophils % 2.1 %; Hematocrit 21.4 % (42.0-52.0); Lymphocytes # 1.9 10^3/uL (0.8-4.8); Lymphocytes % 19.2 %; Mean Corpuscular HGB Conc 27.1 g/dL (30.0-36.0); Mean Corpuscular Hemoglobin 22.1 pg (28.0-34.0); Mean Corpuscular Volume 81.7 fL (80-94); Mean Platelet Volume 10.4 fL (7.4-10.4); Monocytes # 1.3 10^3/uL (0.2-0.9); Monocytes % 12.9 %; Neutrophils # 6.38 10^3/uL (1.8-7.7); Neutrophils % 64.6 %; Nucleated Red Blood Cells % 0.3 %; Platelet Count 410 10^3/cmm (130-400); Red Blood Count 2.62 10^6/uL (4.1-5.3); Red Cell Distribution Width 16.3 % (12.1-15.1); White Blood Count 9.9 10^3/uL (4.0-10.0)
[2020-12-21 11:37] LABS: Alanine Aminotransferase 6 U/L (0-41); Albumin Level 3.7 g/dL (3.5-5.2); Alkaline Phosphatase 65 IU/L (40-130); Anion Gap 14.2 (5-19); Aspartate Amino Transferase 11 U/L (0-40); Blood Urea Nitrogen 21 mg/dL (8-23); Calcium 8.9 mg/dL (8.5-10.5); Carbon Dioxide 22 mmol/L (22-29); Chloride 106 mmol/L (98-107); Ferritin 5 ng/mL (30-400); Glucose 191 mg/dL (65-115); Iron 14 ug/dL (59-158); Osmolality Calculated 294 mOsm/kg (285-295); Percent Saturation 3.9 % (20-50); Potassium 4.2 mmol/L (3.5-5.1); Sodium 138 mmol/L (136-145); Total Bilirubin 0.2 mg/dL (0.15-1.2); Total Iron Binding Capacity 355 mcg/dl; Total Protein 5.7 g/dL (6.6-8.7); Unsaturated Iron Binding 341 ug/dL (112-347)
[2020-12-21 12:00] LABS: Hemoglobin 5.8 g/dL (11.7-16.6)
[2020-12-21 12:01] LABS: Slide Review Slide Review Perform
== END 2020-12-21 10:25 | disposition home or self-care (01) ==
LOC: ONCMED 10:27
PROVIDERS: Absent Provider Nurse Practitioner; PCP Family Medicine; Visit Provider Internal Medicine Hematology & Oncology
DX: D50.9 Iron deficiency anemia, unspecified (principal); Z79.899 Other long term (current) drug therapy; F17.200 Nicotine dependence, unspecified, uncomplicated
CPT/HCPCS: 36415; 80053; 82728; 83540; 83550; 85025

== ENCOUNTER 2020-12-21 13:14 | Outpatient (CLI) | payer MEDICARE, OTHER, SELFPAY ==
[2020-12-21] VITALS (12 sets, daily range): BP systolic 101–133; BP diastolic 47–84; PULSE 90–102; RESP 16–20; TEMP 36.3–36.9; O2SAT 98–100
[2020-12-21] MEDS: sodium chloride 0.9% (100 ml) 100 ML 10 ML ×2 (15:08→17:09)
--- NOTE | 2020-12-21 19:36 | PC.NURSE ---
TRANSUSION STOPPED DUE TO PATIENT C/O. SEE EVENT REPORT.
== END 2020-12-21 18:55 | disposition left against medical advice (07) ==
LOC: OPOB 13:15 → OBGYN 19:17 → OPOB 12-24 12:36 → OBGYN 12-24 12:36
PROVIDERS: PCP Family Medicine; Visit Provider Family Medicine
DX: D50.8 Other iron deficiency anemias (principal); D50.9 Iron deficiency anemia, unspecified; Z79.899 Other long term (current) drug therapy; F17.200 Nicotine dependence, unspecified, uncomplicated
CPT/HCPCS: 36415; 36430; 80053; 82728; 83540; 83550; 85025; 86850; 86900; 86920; 96360; 96361; P9016

== ENCOUNTER 2020-12-26 08:11 | Outpatient (CLI) | payer MEDICARE, OTHER, SELFPAY ==
[2020-12-26 10:56] LABS: Basophils # 0.1 10^3/uL (0.0-0.1); Basophils % 0.4 %; Eosinophils # 0.2 10^3/uL (0.0-0.8); Eosinophils % 1.9 %; Hematocrit 24.6 % (42.0-52.0); Hemoglobin 7.1 g/dL (11.7-16.6); Lymphocytes # 1.5 10^3/uL (0.8-4.8); Lymphocytes % 13.6 %; Mean Corpuscular HGB Conc 28.9 g/dL (30.0-36.0); Mean Corpuscular Hemoglobin 23.3 pg (28.0-34.0); Mean Corpuscular Volume 80.7 fL (80-94); Mean Platelet Volume 10.2 fL (7.4-10.4); Monocytes # 1.5 10^3/uL (0.2-0.9); Monocytes % 13.7 %; Neutrophils # 7.83 10^3/uL (1.8-7.7); Neutrophils % 69.8 %; Nucleated Red Blood Cells % 0.2 %; Platelet Count 345 10^3/cmm (130-400); Red Blood Count 3.05 10^6/uL (4.1-5.3); Red Cell Distribution Width 17.2 % (12.1-15.1); White Blood Count 11.2 10^3/uL (4.0-10.0)
[2020-12-26] MEDS: sodium chloride 0.9% 250 ML 999 ML IV (11:20)
[2020-12-26] MEDS: acetaminophen 325 mg Tablet 650 MG PO (11:20)
[2020-12-26] MEDS: diphenhydrAMINE 25 mg Capsule PO (11:20)
[2020-12-26 12:35] VITALS: BP 127/78; PULSE 74; RESP 18; TEMP 36.9; O2SAT 98
[2020-12-26 12:50] VITALS: BP 116/68; PULSE 84; RESP 18; TEMP 36.2; O2SAT 98
[2020-12-26 13:05] VITALS: BP 118/64; PULSE 82; RESP 18; TEMP 36.7; O2SAT 99
[2020-12-26 13:35] VITALS: BP 123/60; PULSE 84; RESP 18; TEMP 36.6; O2SAT 100
[2020-12-26 14:30] VITALS: BP 126/64; PULSE 84; RESP 18; TEMP 36.3; O2SAT 100
== END 2020-12-26 08:12 | disposition home or self-care (01) ==
LOC: ONCMED 08:23
PROVIDERS: PCP Family Medicine; Visit Provider Internal Medicine Hematology & Oncology
DX: D50.9 Iron deficiency anemia, unspecified (principal); Z79.899 Other long term (current) drug therapy; F17.200 Nicotine dependence, unspecified, uncomplicated
CPT/HCPCS: 36415; 36430; 85025; 86850; 86900; 86920; J7050; P9016

== ENCOUNTER 2020-12-27 06:01 | Outpatient (CLI) | payer MEDICARE, OTHER, SELFPAY ==
[2020-12-27 13:22] LABS: Basophils # 0.1 10^3/uL (0.0-0.1); Basophils % 0.6 %; Eosinophils # 0.3 10^3/uL (0.0-0.8); Eosinophils % 2.7 %; Hematocrit 27.1 % (42.0-52.0); Hemoglobin 7.9 g/dL (11.7-16.6); Lymphocytes # 1.6 10^3/uL (0.8-4.8); Lymphocytes % 15.1 %; Mean Corpuscular HGB Conc 29.2 g/dL (30.0-36.0); Mean Corpuscular Hemoglobin 24.5 pg (28.0-34.0); Mean Corpuscular Volume 83.9 fL (80-94); Mean Platelet Volume 10.7 fL (7.4-10.4); Monocytes # 1.3 10^3/uL (0.2-0.9); Monocytes % 11.8 %; Neutrophils # 7.47 10^3/uL (1.8-7.7); Neutrophils % 69.2 %; Nucleated Red Blood Cells % 0 %; Platelet Count 304 10^3/cmm (130-400); Red Blood Count 3.23 10^6/uL (4.1-5.3); Red Cell Distribution Width 17.8 % (12.1-15.1); White Blood Count 10.8 10^3/uL (4.0-10.0)
[2020-12-27 13:50] LABS: Alanine Aminotransferase 9 U/L (0-41); Albumin Level 3.5 g/dL (3.5-5.2); Alkaline Phosphatase 60 IU/L (40-130); Anion Gap 15.1 (5-19); Aspartate Amino Transferase 15 U/L (0-40); Blood Urea Nitrogen 26 mg/dL (8-23); Calcium 8.9 mg/dL (8.5-10.5); Carbon Dioxide 21 mmol/L (22-29); Chloride 106 mmol/L (98-107); Ferritin 11 ng/mL (30-400); Globulin 2.4 g/dL (1.3-4.6); Glucose 144 mg/dL (65-115); Iron 18 ug/dL (59-158); Osmolality Calculated 293 mOsm/kg (285-295); Percent Saturation 5.3 % (20-50); Potassium 4.1 mmol/L (3.5-5.1); Sodium 138 mmol/L (136-145); Total Bilirubin 0.2 mg/dL (0.15-1.2); Total Iron Binding Capacity 336 mcg/dl; Total Protein 5.9 g/dL (6.6-8.7); Unsaturated Iron Binding 318 ug/dL (112-347)
--- NOTE | 2020-12-27 18:11 | ONC FU_ITS ---
Dr. Olivo follow up note Patient: Gerardo Pardo Unit #: [id number]: 1935 Dicatated By: Zaid Oliov M.D.Date of Visit:Dec 27, 2020 Onc Med Follow-up/Prog Note History of Present Illness: Mr. Pardo is an 85-year-old gentleman with long-standing history of mild anemia. He started having progressive weakness and palpitations in early August 2018. His lab work up at that time showed severe anemia, hemoglobin 6.9 g , for which he was given 2 units of packed RBCs. With the transfusion services, his hemoglobin improved to 8.9. His anemia workup on 09/17/2018 showed low ferritin 15 , TIBC 391, total iron 16, iron saturation 4%. Mr Pardo was started on oral iron ferrous sulfate 1 tablet by mouth every other day. He had difficulty tolerating oral iron due to GI distress. He denied any history of melena, hematochezia, hemoptysis or hematemesis. He had not had any history of hematuria or jaundice. Mr Pardo has history of coronary artery disease and underwent coronary artery stent placement. He was treated with Plavix and aspirin, as per patient and his daughter after his hemoglobin dropped to 6.9 g Plavix was discontinued and but continued with aspirin.and later on plavix was added again. Patient has history of bladder cancer diagnosed in 1996 at that time underwent radical cystectomy with neobladder at [facility], no further treatment was needed No history of EGD exam. As per daughter colonoscopy was done 6- 7 years ago in [place] for rectal bleed at that time he was told that it was due to hemorrhoids and couple of benign polyps were also removed Last time parenteral iron Injectafer 750 mg weekly ???2 was given in February 2019 with that follow-up CBC done on 05/12/2019 showed hemoglobin 16.1 hematocrit 48.6 ferritin under 17 TIBC 197 B12 356. Patient was seen by Dr. Falcon for GI evaluation but as per patient evaluation was postponed because of normalization of hemoglobin and iron studies Came for follow-up, complaining of generalized weakness and fatigue as per patient since his last visit in September 2020, patient developed progressive shortness of breath and weakness and on December 21, 2020 his lab work-up shows white blood count 9.9 hemoglobin 5.8 g hematocrit 21.4 platelets 410,000, at that time 2 units of packed RBC was ordered while patient was receiving blood transfusion in the hospital he developed left chest pain after first unit was completed, at that time patient was given little break with that his chest pain improved then he was started on second unit and patient developed left chest pain again at that time, so second unit was not given and patient came back to cancer center again on December 26, 2020 at that time he received second unit of packed RBC, without any chest pain in between he was seen by Dr. 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 Patient denies any melena or hematochezia, denies any hemoptysis or hematemesis denies any history of dark-colored stools or jaundice in the past patient was referred to Dr. Falcon for GI evaluation but it was postponed because of his iron studies and hemoglobin is staying in normal range after last Injectafer infusion given in August 2018 Medications: C 500 2 Tablet (of 500 mg) Oral daily, Cranberry Extract 1 Capsule (of 200 mg) Oral daily, Crestor 1 Tablet (of 20 mg) Oral daily, Methenamine 0.5 Tablet (of 500 mg) b.i.d., Metoprolol Tartrate 0.5 Tablet (of 25 mg) Oral daily, Multi Vitamin/Minerals 1 Tablet Oral daily, Plavix 1 Tablet (of 75 mg) Oral daily, Probiotic 1 Capsule Oral daily, Stool Softener 1 Capsule (of 100 mg) Oral b.i.d. Allergies: No Known Allergies. Review of Systems: Review of Systems is not available for this patient. Vital Signs: Performed on Dec 27, 2020 14:08 Height - 68.00 in Temperature - 98.4 F Pulse - 80 /min Respiration - 18 /min BP - 100/66 mm(hg) O2 Sat - 97 % Pain - 0 Performance Status: 1 - No physically strenuous activity, but ambulatory and able to carry out light or sedentary work (e.g. office work, light house work). (ECOG) Physical Examination: ENMT - No mouth sores, no thrush, no jaundice, Respiratory - Lungs are clear to auscultation, Cardiovascular - Regular rate and rhythm of heart, Abdomen - Soft, bowel sounds present, Extremities - No visible edema. Lab/Imaging: Test performed on Sep 19, 2020 09:56 Ferritin 20 ng/mL Iron 46 mcg/dL Iron Binding Capacity (TIBC) 313 mcg/dl % Iron Saturation 14.6 % UIBC 267 mcg/dL WBC 10.3 10 3/uL RBC 5.06 10 6/uL HGB 14.1 g/dL HCT 44.3 % MCV 87.5 fL MCH 27.9 pg MCHC 31.8 g/dL RDW 14.7 % Platelet Count 335 10 3/cmm MPV 10.5 fL Neutrophils 6.42 10 3/uL Lymphocytes 2.7 10 3/uL Monocytes 1.1 10 3/uL Eosinophils 0.0 10 3/uL Basophils 0.1 10 3/uL Neutrophil % 62.3 % Lymphocyte % 26.1 % Monocyte % 10.4 % Eosinophil % 0.0 % Basophils % 0.5 % NRBC % 0 % Impression: Microcytic hypochromic anemia due to iron deficiency due to chronic GI blood loss or malabsorption but most likely due to chronic blood loss. Iron studies done on 09/17/2018 showed ferritin 15 L, TIBC 391, iron saturation 4%, reticulocyte count 3.5% as per patient , Status post 2 units of packed RBCs for hemoglobin 6.9 in early August 2018 Status post Injectafer 750 mg weekly ???2 and August 2018 with good response and repeated again in February 2019 for development of iron deficiency anemia again. Last colonoscopy was done 6-7 years ago for rectal bleeding, as per daughter it was due to hemorrhoids and couple of benign polyps were removed. Plan: Discussed with patient regarding his labs white blood count 10.8 hemoglobin 7.9 compared to 5.8 on December 21, 2020 e.g. prior to 2 units of packed RBC. Hematocrit 27.1 platelets 304,000 CMP within normal limits and iron studies done on December 21, 2020 shows iron saturation 3.9% ferritin 5, iron 14 Clinically, patient doing reasonably well, no chest pain, no shortness of breath or palpitation at rest but generalized weakness and fatigue, at this point, will consider 2 units of packed RBC, will type and cross today and then he receive blood transfusion tomorrow morning and also obtain approval from his insurance regarding Injectafer 750 mg IV weekly x2 and then patient return to clinic in 2 weeks with CBC, Patient has history of smoking then quit now as per daughter did start smoking again, patient was advised to quit smoking and was offered any assistance he may need In the meantime we will refer him back to Dr. Falcon for EGD and colonoscopy if unremarkable, will consider capsule endoscopy to rule out small bowel AVMs causing iron deficiency anemia Signed By: Zaid Olivo M.D. <<Signature on File>>
== END 2020-12-27 06:02 | disposition home or self-care (01) ==
PROVIDERS: PCP Family Medicine; Visit Provider Internal Medicine Hematology & Oncology
DX: D50.9 Iron deficiency anemia, unspecified (principal); Z79.899 Other long term (current) drug therapy; F17.200 Nicotine dependence, unspecified, uncomplicated
CPT/HCPCS: 36415; 80053; 82728; 83540; 83550; 85025; 99214

== ENCOUNTER 2021-01-03 05:46 | Outpatient (RCR) | payer MEDICARE, OTHER, SELFPAY ==
[2020-12-31] VITALS (8 sets, daily range): BP systolic 111–144; BP diastolic 61–80; PULSE 84–91; RESP 16; TEMP 36.4–36.8; O2SAT 98–99
[2020-12-31 08:41] LABS: Basophils # 0.1 10^3/uL (0.0-0.1); Basophils % 0.6 %; Eosinophils # 0.2 10^3/uL (0.0-0.8); Eosinophils % 2.3 %; Hematocrit 27.6 % (42.0-52.0); Lymphocytes # 1.7 10^3/uL (0.8-4.8); Lymphocytes % 16.8 %; Mean Corpuscular Hemoglobin 23.7 pg (28.0-34.0); Mean Corpuscular Volume 81.9 fL (80-94); Mean Platelet Volume 10.2 fL (7.4-10.4); Monocytes # 1.3 10^3/uL (0.2-0.9); Monocytes % 12.8 %; Neutrophils # 6.76 10^3/uL (1.8-7.7); Neutrophils % 66.9 %; Nucleated Red Blood Cells % 0.2 %; Platelet Count 388 10^3/cmm (130-400); Red Blood Count 3.37 10^6/uL (4.1-5.3); Red Cell Distribution Width 17.8 % (12.1-15.1); White Blood Count 10.1 10^3/uL (4.0-10.0)
[2020-12-31] MEDS: sodium chloride 0.9% 250 ML 999 ML IV (10:05)
[2020-12-31] MEDS: diphenhydrAMINE 25 mg Capsule PO (10:05)
[2020-12-31] MEDS: acetaminophen 325 mg Tablet 650 MG PO (10:05)
[2021-01-03] MEDS: ferric carboxy (IVPB) 750 MG in sodium chloride 0.9% (100 ml) 100 ML 460 MG IV (11:00)
[2021-01-03 11:23] LABS: Basophils # 0.1 10^3/uL (0.0-0.1); Basophils % 0.5 %; Eosinophils # 0.3 10^3/uL (0.0-0.8); Eosinophils % 2.3 %; Hematocrit 37.3 % (42.0-52.0); Hemoglobin 11.2 g/dL (11.7-16.6); Lymphocytes % 17.7 %; Mean Corpuscular Hemoglobin 25.4 pg (28.0-34.0); Mean Corpuscular Volume 84.6 fL (80-94); Mean Platelet Volume 10.4 fL (7.4-10.4); Monocytes # 1.5 10^3/uL (0.2-0.9); Monocytes % 13.1 %; Neutrophils # 7.48 10^3/uL (1.8-7.7); Neutrophils % 65.5 %; Nucleated Red Blood Cells % 0 %; Platelet Count 420 10^3/cmm (130-400); Red Blood Count 4.41 10^6/uL (4.1-5.3); Red Cell Distribution Width 17.4 % (12.1-15.1); White Blood Count 11.4 10^3/uL (4.0-10.0)
== END 2021-01-05 23:59 | disposition home or self-care (01) ==
LOC: ONCMED 05:46
PROVIDERS: PCP Family Medicine; Visit Provider Internal Medicine Hematology & Oncology
DX: D50.9 Iron deficiency anemia, unspecified (principal); Z79.899 Other long term (current) drug therapy
CPT/HCPCS: 36430; 85025; 86850; 86900; 86920; 96365; J1439; J7050; P9016

== ENCOUNTER 2021-01-10 06:28 | Outpatient (RCR) | payer MEDICARE, OTHER, SELFPAY ==
[2021-01-10] MEDS: ferric carboxy (IVPB) 750 MG in sodium chloride 0.9% (100 ml) 100 ML 460 MG IV (10:40)
== END 2021-02-05 23:59 | disposition home or self-care (01) ==
LOC: ONCMED 06:28
PROVIDERS: PCP Family Medicine; Visit Provider Internal Medicine Hematology & Oncology
DX: D50.9 Iron deficiency anemia, unspecified (principal); Z79.899 Other long term (current) drug therapy
CPT/HCPCS: 96365; J1439

== ENCOUNTER 2021-01-31 07:07 | Outpatient (CLI) | payer MEDICARE, OTHER, SELFPAY ==
--- NOTE | 2021-01-31 07:15 | USCV_ITS ---
Gerardo Pardo Age: 85 Gender: M : 1935 Exam Date: 01/31/2021 07:36 Ordering Phys: Zachariah Rangel MD ([email or web address]) Technologist: Nemo Kitchen Exam Location: [facility] [place] Indication: RECHECK ON AND SOB BP: / HR: 89 Rhythm: Sinus Technical Quality: Adequate MEASUREMENTS (Male / Female) Normal Values 2D ECHO LV Diastolic Diameter PLAX 4.2 cm 4.2 - 5.9 / 3.9 - 5.3 cm LV Systolic Diameter PLAX 2.7 cm LV Chamber Size 4.1 cm IVS Diastolic Thickness 1.7 cm 0.6 - 1.0 / 0.6 - 0.9 cm IVS Systolic Thickness 1.3 cm LVPW Diastolic Thickness 1.4 cm 0.6 - 1.0 / 0.6 - 0.9 cm LVPW Systolic Thickness 1.5 cm RV Chamber Size 1.7 cm LVOT Diameter 2.0 cm LV Ejection Fraction 2D Teich 64.4 % LV Ejection Fraction MOD 2C 73.4 % LV Ejection Fraction 2C AL 74.9 % LA Diameter 3.7 cm LA Width 3.6 cm LA Height 5.2 cm RA Width 1.9 cm RA Height 5.9 cm Aorta at Sinotubular Diameter 3.1 cm M-MODE LV Diastolic Diameter MM 3.0 cm 4.2 - 5.9 / 3.9 - 5.3 cm LV Systolic Diameter MM 2.0 cm LV Ejection Fraction MM Teich 64.8 % IVS Diastolic Thickness MM 1.0 cm 0.6 - 1.0 / 0.6 - 0.9 cm IVS Systolic Thickness MM 1.3 cm LVPW Diastolic Thickness MM 1.1 cm 0.6 - 1.0 / 0.6 - 0.9 cm LVPW Systolic Thickness MM 1.3 cm Aortic Annulus Diameter 3.4 cm LA Ao Ratio MM 1.0 MV E Point Septal Separation 0.7 cm DOPPLER AV Peak Velocity 335.3 cm/s LVOT Peak Velocity 117.0 cm/s AV Area Cont Eq vti 1.4 cm squared AV Area Cont Eq pk 1.1 cm squared MV Area PHT 5.0 cm squared Mitral E to A Ratio 1.0 MV E' Velocity 77.0 cm/s Mitral E to MV E' Ratio 12.4 Mitral E to LV E' Lateral Ratio 12.1 Mitral E to LV E' Septal Ratio 12.8 TR Peak Velocity 329.1 cm/s TR Peak Gradient 43.3 mmHg TR Mean Velocity 217.7 cm/s TR Mean Gradient 22.8 mmHg TR Velocity Time Integral 92.6 cm TV Peak E Velocity 72.0 cm/s Right Atrial Pressure 15.0 mmHg Pulmonary Artery Systolic Pressu 58.3 mmHg PV Peak Velocity 74.0 cm/s RV Acceleration Time 0.1 s RV Ejection Time 0.3 s RV AcT/ET 0.3 FINDINGS Left Ventricle Normal left ventricular size and systolic function, EF 61 %. Moderate left ventricular hypertrophy. No regional wall motion abnormalities. Grade II/IV diastolic dysfunction, moderately elevated filling pressures. Right Ventricle The right ventricle is normal in size and function. Right Atrium The right atrium is normal in size. Left Atrium Mildly increased left atrial size. Mitral Valve Thickened mitral valve. Moderate mitral annular calcification. At least moderate mitral regurgitation, appears to be eccentric Aortic Valve Moderate aortic valve calcification. Moderate aortic valve stenosis, mean gradient 25.3 mmHg, MARBIN 1.4 cm squared. Mild aortic valve regurgitation. Tricuspid Valve [id number] tricuspid valve regurgitation. Pulmonary hypertension with an estimated pulmonary artery peak systolic pressure of 58 mmHg. Pulmonic Valve Pulmonic valve not well visualized. Pericardium Normal pericardium without effusion. Aorta Normal ascending aorta dimension. CONCLUSIONS Normal left ventricular size and systolic function, EF 61 %. Moderate left ventricular hypertrophy. No regional wall motion abnormalities. Grade II/IV diastolic dysfunction, moderately elevated filling pressures. Moderate aortic valve stenosis, mean gradient 25.3 mmHg, MARBIN 1.4 cm squared. Moderate aortic valve calcification [id number] tricuspid valve regurgitation. Pulmonary hypertension with an estimated pulmonary artery peak systolic pressure of 58 mmHg. Moderate mitral annular calcification. At least moderate mitral regurgitation, appears to be eccentric Mild aortic valve regurgitation. Mildly increased left atrial size. There is no pericardial effusion. There are no intracardiac masses. Compared to the study from 06/16/2018, there is some worsening of the mitral regurgitation Dr Zachariah Rangel MD FACC (Electronically Signed) Final Date: 31 January 2021 23:13 S
== END 2021-01-31 07:08 | disposition home or self-care (01) ==
PROVIDERS: PCP Family Medicine; Visit Provider Internal Medicine Cardiovascular Disease
DX: R06.00 Dyspnea, unspecified (principal); I08.3 Combined rheumatic disorders of mitral, aortic and tricuspid valves; I27.20 Pulmonary hypertension, unspecified
CPT/HCPCS: 93306

== ENCOUNTER 2021-02-07 05:41 | Outpatient (RCR) | payer MEDICARE, OTHER, SELFPAY ==
[2021-02-07 14:30] LABS: Basophils # 0.1 10^3/uL (0.0-0.1); Basophils % 0.6 %; Eosinophils # 0.3 10^3/uL (0.0-0.8); Eosinophils % 3.3 %; Hematocrit 41.1 % (42.0-52.0); Lymphocytes # 1.6 10^3/uL (0.8-4.8); Lymphocytes % 17.3 %; Mean Corpuscular HGB Conc 31.6 g/dL (30.0-36.0); Mean Corpuscular Hemoglobin 28.3 pg (28.0-34.0); Mean Corpuscular Volume 89.5 fl (80-94); Mean Platelet Volume 10.7 fL (7.4-10.4); Monocytes # 1.3 10^3/uL (0.2-0.9); Monocytes % 13.5 %; Neutrophils % 64.9 %; Nucleated Red Blood Cells % 0 %; Platelet Count 284 10^3/cmm (130-400); Red Blood Count 4.59 10^6/uL (4.1-5.3); Red Cell Distribution Width 20.4 % (12.1-15.1); White Blood Count 9.4 10^3/uL (4.0-10.0)
[2021-02-07 15:04] LABS: Ferritin 120 ng/mL (30-400); Iron 35 ug/dL (59-158); Percent Saturation 13.8 % (20-50); Total Iron Binding Capacity 253 mcg/dl; Unsaturated Iron Binding 218 ug/dL (112-347)
--- NOTE | 2021-02-07 15:43 | ONC FU_ITS ---
Dr. Olivo follow up note Patient: Gerardo Pardo Unit #: [id number]: 1935 Dicatated By: Zaid Olivo M.D.Date of Visit:Feb 07, 2021 Onc Med Follow-up/Prog Note History of Present Illness: Mr. Pardo is an 85-year-old gentleman with long-standing history of mild anemia. He started having progressive weakness and palpitations in early August 2018. His lab work up at that time showed severe anemia, hemoglobin 6.9 g , for which he was given 2 units of packed RBCs. With the transfusion services, his hemoglobin improved to 8.9. His anemia workup on 09/17/2018 showed low ferritin 15 , TIBC 391, total iron 16, iron saturation 4%. Mr Pardo was started on oral iron ferrous sulfate 1 tablet by mouth every other day. He had difficulty tolerating oral iron due to GI distress. He denied any history of melena, hematochezia, hemoptysis or hematemesis. He had not had any history of hematuria or jaundice. Mr Pardo has history of coronary artery disease and underwent coronary artery stent placement. He was treated with Plavix and aspirin, as per patient and his daughter after his hemoglobin dropped to 6.9 g Plavix was discontinued and but continued with aspirin.and later on plavix was added again. Patient has history of bladder cancer diagnosed in 1996 at that time underwent radical cystectomy with neobladder at [facility], no further treatment was needed No history of EGD exam. As per daughter colonoscopy was done 6- 7 years ago in [place] for rectal bleed at that time he was told that it was due to hemorrhoids and couple of benign polyps were also removed Last time parenteral iron Injectafer 750 mg weekly ???2 was given in February 2019 with that follow-up CBC done on 05/12/2019 showed hemoglobin 16.1 hematocrit 48.6 ferritin under 17 TIBC 197 B12 356. Patient was seen by Dr. Falcon for GI evaluation but as per patient evaluation was postponed because of normalization of hemoglobin and iron studies Came for follow-up, denies any specific complaints, no fever chills, no nausea or vomiting, no diarrhea constipation, patient tolerated Injectafer well, now more energetic, denies any melena or hematochezia denies any hemoptysis or hematemesis denies any shortness of breath or chest pain denies any palpitation, as per patient, Dr. Falcon is awaiting cardiac clearance for his EGD and colonoscopy. Medications: C 500 2 Tablet (of 500 mg) Oral daily, Cranberry Extract 1 Capsule (of 200 mg) Oral daily, Crestor 1 Tablet (of 20 mg) Oral daily, Methenamine 0.5 Tablet (of 500 mg) b.i.d., Metoprolol Tartrate 0.5 Tablet (of 25 mg) Oral daily, Multi Vitamin/Minerals 1 Tablet Oral daily, Plavix 1 Tablet (of 75 mg) Oral daily, Probiotic 1 Capsule Oral daily, Stool Softener 1 Capsule (of 100 mg) Oral b.i.d. Allergies: No Known Allergies. Review of Systems: Review of Systems is not available for this patient. Vital Signs: Vitals are not available for this patient. Performance Status: 0 - Fully active, able to carry on all predisease activities without restrictions. (ECOG) Physical Examination: ENMT - No mouth sores, no thrush, no jaundice, Respiratory - Lungs are clear to auscultation , Cardiovascular - Regular rate and rhythm of heart , Abdomen - Soft, bowel sounds present, Extremities - No visible edema. Lab/Imaging: Test performed on Dec 31, 2020 08:25 WBC 10.1 10 3/uL RBC 3.37 10 6/uL HGB 8.0 g/dL HCT 27.6 % MCV 81.9 fL MCH 23.7 pg MCHC 29.0 g/dL RDW 17.8 % Platelet Count 388 10 3/cmm MPV 10.2 fL Neutrophils 6.76 10 3/uL Lymphocytes 1.7 10 3/uL Monocytes 1.3 10 3/uL Eosinophils 0.2 10 3/uL Basophils 0.1 10 3/uL Neutrophil % 66.9 % Lymphocyte % 16.8 % Monocyte % 12.8 % Eosinophil % 2.3 % Basophils % 0.6 % NRBC % 0.2 % Test performed on Sep 19, 2020 09:56 Ferritin 20 ng/mL Iron 46 mcg/dL Iron Binding Capacity (TIBC) 313 mcg/dl % Iron Saturation 14.6 % UIBC 267 mcg/dL Impression: Microcytic hypochromic anemia due to iron deficiency due to chronic GI blood loss or malabsorption but most likely due to chronic blood loss. Iron studies done on 09/17/2018 showed ferritin 15 L, TIBC 391, iron saturation 4%, reticulocyte count 3.5% as per patient , Status post 2 units of packed RBCs for hemoglobin 6.9 in early August 2018 Status post Injectafer 750 mg weekly ???2 and August 2018 with good response and repeated again in February 2019 for development of iron deficiency anemia again., Repeat packed RBCs in December 2020 for progressive iron deficiency anemia, status post Injectafer 750 mg IV weekly x2 in December 2020 with excellent response, resolution of iron deficiency anemia Last colonoscopy was done 6-7 years ago for rectal bleeding, as per daughter it was due to hemorrhoids and couple of benign polyps were removed. Plan: Discussed with patient regarding his labs white blood count 9.4 hemoglobin 13 g compared to 11.2 g prior to parenteral iron hematocrit 41.1 platelets 204,000 ferritin 120 compared to 11 prior to infusion iron saturation 13.8 compared to 5.3 prior to infusion iron 35 Clinically, patient doing well with no new signs symptom, no evidence of gross bleeding, responded very well to parenteral iron, patient received 2 doses of weekly Injectafer on January 03, 2021 and January 10, 2021, his follow-up CBC shows resolution of iron deficiency anemia and improvement in iron stores. Patient was referred to Dr. Falcon for EGD and colonoscopy,, as per patient Dr. Falcon is awaiting cardiology clearance for EGD colonoscopy. He will return to clinic in 1 month with CBC and iron studies Signed By: Zaid Olivo M.D. <<Signature on File>>
== END 2021-03-07 23:59 | disposition home or self-care (01) ==
LOC: ONCMED 05:41
PROVIDERS: PCP Family Medicine; Visit Provider Internal Medicine Hematology & Oncology
DX: D50.0 Iron deficiency anemia secondary to blood loss (chronic) (principal); K62.5 Hemorrhage of anus and rectum; K64.9 Unspecified hemorrhoids; D12.6 Benign neoplasm of colon, unspecified; Z79.899 Other long term (current) drug therapy
CPT/HCPCS: 36415; 82728; 83540; 83550; 85025; 99214

== ENCOUNTER 2021-03-26 07:49 | Outpatient (RCR) | payer MEDICARE, OTHER, SELFPAY ==
[2021-03-26 12:28] LABS: Basophils # 0.1 10^3/uL (0.0-0.1); Basophils % 0.6 %; Eosinophils # 0.3 10^3/uL (0.0-0.8); Hematocrit 42.8 % (42.0-52.0); Hemoglobin 13.7 g/dL (11.7-16.6); Lymphocytes # 2.2 10^3/uL (0.8-4.8); Lymphocytes % 21.7 %; Mean Corpuscular Hemoglobin 28.5 pg (28.0-34.0); Mean Corpuscular Volume 89.2 fl (80-94); Mean Platelet Volume 10.5 fL (7.4-10.4); Monocytes # 1.5 10^3/uL (0.2-0.9); Monocytes % 14.1 %; Neutrophils # 6.16 10^3/uL (1.8-7.7); Neutrophils % 59.9 %; Nucleated Red Blood Cells % 0 %; Platelet Count 329 10^3/cmm (130-400); Red Cell Distribution Width 14.9 % (12.1-15.1); White Blood Count 10.3 10^3/uL (4.0-10.0)
[2021-03-26 12:57] LABS: Ferritin 24 ng/mL (30-400); Iron 52 ug/dL (59-158); Percent Saturation 16.5 % (20-50); Total Iron Binding Capacity 315 mcg/dl; Unsaturated Iron Binding 263 ug/dL (112-347)
== END 2021-04-07 23:59 | disposition home or self-care (01) ==
LOC: ONCMED 07:49
PROVIDERS: PCP Family Medicine; Visit Provider Internal Medicine Hematology & Oncology
DX: D50.9 Iron deficiency anemia, unspecified (principal)
CPT/HCPCS: 36415; 82728; 83540; 83550; 85025

== ENCOUNTER 2021-05-10 08:08 | Outpatient (CLI) | payer MEDICARE, OTHER, SELFPAY ==
[2021-05-10 08:53] LABS: Basophils # 0.1 10^3/uL (0.0-0.1); Basophils % 0.7 %; Eosinophils # 0.3 10^3/uL (0.0-0.8); Eosinophils % 2.3 %; Hematocrit 34.9 % (42.0-52.0); Hemoglobin 10.8 g/dL (11.7-16.6); Lymphocytes # 2.3 10^3/uL (0.8-4.8); Lymphocytes % 18.3 %; Mean Corpuscular HGB Conc 30.9 g/dL (30.0-36.0); Mean Corpuscular Hemoglobin 27.1 pg (28.0-34.0); Mean Corpuscular Volume 87.5 fl (80-94); Mean Platelet Volume 10.6 fL (7.4-10.4); Monocytes # 1.8 10^3/uL (0.2-0.9); Monocytes % 13.9 %; Neutrophils # 8.09 10^3/uL (1.8-7.7); Neutrophils % 64.2 %; Nucleated Red Blood Cells % 0 %; Platelet Count 394 10^3/cmm (130-400); Red Blood Count 3.99 10^6/uL (4.1-5.3); Red Cell Distribution Width 13.9 % (12.1-15.1); White Blood Count 12.6 10^3/uL (4.0-10.0)
[2021-05-10 09:07] LABS: Alanine Aminotransferase 8 U/L (0-41); Albumin Level 4.1 g/dL (3.5-5.2); Alkaline Phosphatase 84 IU/L (40-130); Anion Gap 14.6 (5-19); Aspartate Amino Transferase 11 U/L (0-40); Blood Urea Nitrogen 24 mg/dL (8-23); Calcium 9.6 mg/dL (8.5-10.5); Carbon Dioxide 24 mmol/L (22-29); Chloride 106 mmol/L (98-107); Ferritin 12 ng/mL (30-400); Globulin 2.5 g/dL (1.3-4.6); Glucose 144 mg/dL (65-115); Iron 26 ug/dL (59-158); Osmolality Calculated 297 mOsm/kg (285-295); Potassium 4.6 mmol/L (3.5-5.1); Sodium 140 mmol/L (136-145); Total Bilirubin 0.2 mg/dL (0.15-1.2); Total Iron Binding Capacity 369 mcg/dl; Total Protein 6.6 g/dL (6.6-8.7); Unsaturated Iron Binding 343 ug/dL (112-347)
--- NOTE | 2021-05-10 10:10 | ONC FU_ITS ---
Dr. Olivo follow up note Patient: Gerardo Pardo Unit #: [id number]: 1935 Dicatated By: Zaid Olivo M.D.Date of Visit:May 10, 2021 Onc Med Follow-up/Prog Note History of Present Illness: Mr. Pardo is an 85-year-old gentleman with long-standing history of mild anemia. He started having progressive weakness and palpitations in early August 2018. His lab work up at that time showed severe anemia, hemoglobin 6.9 g , for which he was given 2 units of packed RBCs. With the transfusion services, his hemoglobin improved to 8.9. His anemia workup on 09/17/2018 showed low ferritin 15 , TIBC 391, total iron 16, iron saturation 4%. Mr Pardo was started on oral iron ferrous sulfate 1 tablet by mouth every other day. He had difficulty tolerating oral iron due to GI distress. He denied any history of melena, hematochezia, hemoptysis or hematemesis. He had not had any history of hematuria or jaundice. Mr Pardo has history of coronary artery disease and underwent coronary artery stent placement. He was treated with Plavix and aspirin, as per patient and his daughter after his hemoglobin dropped to 6.9 g Plavix was discontinued and but continued with aspirin.and later on plavix was added again. Patient has history of bladder cancer diagnosed in 1996 at that time underwent radical cystectomy with [facility]obladder at [facility], no further treatment was needed No history of EGD exam. As per daughter colonoscopy was done 6- 7 years ago in [place] for rectal bleed at that time he was told that it was due to hemorrhoids and couple of benign polyps were also removed Last time parenteral iron Injectafer 750 mg weekly ???2 was given in February 2019 with that follow-up CBC done on 05/12/2019 showed hemoglobin 16.1 hematocrit 48.6 ferritin under 17 TIBC 197 B12 356. Patient was seen by Dr. Falcon for GI evaluation but as per patient evaluation was postponed because of normalization of hemoglobin and iron studies Came for follow-up, complaining of generalized weakness and fatigue, no chest pain but mild palpitation, no melena hematochezia, no hemoptysis or hematemesis, no jaundice, no abdominal pain, no night sweats, no weight loss. Patient has seen Dr. Falcon in the recent past for EGD and colonoscopy for iron deficiency anemia but at patient request it was postponed. Patient still smoke about pack a day Medications: C 500 2 Tablet (of 500 mg) Oral daily, Cranberry Extract 1 Capsule (of 200 mg) Oral daily, Crestor 1 Tablet (of 20 mg) Oral daily, Methenamine 0.5 Tablet (of 500 mg) b.i.d., Metoprolol Tartrate 0.5 Tablet (of 25 mg) Oral daily, Multi Vitamin/Minerals 1 Tablet Oral daily, Plavix 1 Tablet (of 75 mg) Oral daily, Probiotic 1 Capsule Oral daily, Stool Softener 1 Capsule (of 100 mg) Oral b.i.d. Allergies: No Known Allergies. Review of Systems: Review of Systems is not available for this patient. Vital Signs: Performed on May 10, 2021 10:06 Height - 68.00 in Weight - 174.4 lbs (LOW) BSA - 1.93 sq.m BMI - 26.52 Temperature - 97.4 F (LOW) Pulse - 105 /min (HIGH) Respiration - 20 /min BP - 127/85 mm(hg) O2 Sat - 98 % Pain - 0 Fatigue - 4 Performance Status: 0 - Fully active, able to carry on all predisease activities without restrictions. (ECOG) Physical Examination: ENMT - No mouth sores, no thrush, no jaundice, Respiratory - Lungs are clear to auscultation, Cardiovascular - Regular rate and rhythm of heart, Abdomen - Soft, bowel sounds present, Extremities - No visible edema. Lab/Imaging: Test performed on Dec 31, 2020 08:25 WBC 10.1 10 3/uL RBC 3.37 10 6/uL HGB 8.0 g/dL HCT 27.6 % MCV 81.9 fL MCH 23.7 pg MCHC 29.0 g/dL RDW 17.8 % Platelet Count 388 10 3/cmm MPV 10.2 fL Neutrophils 6.76 10 3/uL Lymphocytes 1.7 10 3/uL Monocytes 1.3 10 3/uL Eosinophils 0.2 10 3/uL Basophils 0.1 10 3/uL Neutrophil % 66.9 % Lymphocyte % 16.8 % Monocyte % 12.8 % Eosinophil % 2.3 % Basophils % 0.6 % NRBC % 0.2 % Impression: Microcytic hypochromic anemia due to iron deficiency due to chronic GI blood loss or malabsorption but most likely due to chronic blood loss. Iron studies done on 09/17/2018 showed ferritin 15 L, TIBC 391, iron saturation 4%, reticulocyte count 3.5% as per patient , Status post 2 units of packed RBCs for hemoglobin 6.9 in early August 2018 Status post Injectafer 750 mg weekly ???2 and August 2018 with good response and repeated again in February 2019 for development of iron deficiency anemia again., Repeat packed RBCs in December 2020 for progressive iron deficiency anemia, status post Injectafer 750 mg IV weekly x2 in December 2020 with excellent response, resolution of iron deficiency anemia Last colonoscopy was done 6-7 years ago for rectal bleeding, as per daughter it was due to hemorrhoids and couple of benign polyps were removed. Plan: Discussed with patient regarding his labs white blood count 12.6 hemoglobin 10.8 g compared to 13.7 g on March 26, 2021 hematocrit 34.9 platelets 394,000 CMP within normal limits except glucose 144 and iron studies shows iron saturation 7% compared to 16.5% previously ferritin 12 and iron 26 TIBC 369 Clinically, patient doing reasonably well now with progressive iron deficiency anemia and symptomatic e.g. generalized weakness and fatigue, his follow-up lab showed significant drop in his hemoglobin within 6 weeks with no obvious gross bleeding and his iron studies shows further drop in his iron stores, patient has history of colon polyps removal about 6 -7 years ago so there is a concern about GI malignancy, other possibility could be small bowel AVMs if EGD and colonoscopy come back normal At this point we will request Dr. Falcon to consider EGD and colonoscopy for progressive iron deficiency anemia and if it shows no obvious source of bleeding, will consider capsule endoscopy to rule out small bowel AVMs/pathology. Patient agreed and wants to get this procedure done after [place] We will consider Injectafer 750 mg IV weekly x2 and then he will return to clinic 1 month after second dose with CBC and iron studies^ Patient was also advised to quit smoking and was offered any assistance he may need] Signed By: Zaid Olivo M.D. <<Signature on File>>
[2021-05-10] MEDS: sodium chloride 0.9% 100 mL Bag IV (10:25)
[2021-05-10] MEDS: ferric carboxy (PYXIS) 750 mg/15 mL INJ IV (10:45)
== END 2021-05-10 08:09 | disposition home or self-care (01) ==
LOC: ONCMED 08:11
PROVIDERS: PCP Family Medicine; Visit Provider Internal Medicine Hematology & Oncology
DX: D50.0 Iron deficiency anemia secondary to blood loss (chronic) (principal); K64.9 Unspecified hemorrhoids; K62.1 Rectal polyp; Z79.899 Other long term (current) drug therapy
CPT/HCPCS: 36415; 80053; 82728; 83540; 83550; 85025; 96365; 99214; J1439

== ENCOUNTER 2021-05-22 10:34 | Outpatient (CLI) | payer MEDICARE, OTHER, SELFPAY | END 2021-05-22 10:35 | disposition home or self-care (01) | LOC: ONCMED 10:35 | PROVIDERS: PCP Family Medicine; Visit Provider Internal Medicine Hematology & Oncology | DX: D50.9 Iron deficiency anemia, unspecified (principal) | CPT/HCPCS: 96365; J1439 ==

== ENCOUNTER → 2021-05-23 11:25 | Outpatient (BNVA) | payer MEDICARE, OTHER, SELFPAY | PROVIDERS: PCP Family Medicine; Visit Provider Urology | DX: N39.0 Urinary tract infection, site not specified (principal) | CPT/HCPCS: 81003; 87077; 87086; 87184 ==

== ENCOUNTER 2021-06-26 10:38 | Outpatient (CLI) | payer MEDICARE, OTHER, SELFPAY ==
[2021-06-26 11:47] LABS: Basophils # 0.1 10^3/uL (0.0-0.1); Basophils % 0.6 %; Eosinophils # 0.2 10^3/uL (0.0-0.8); Eosinophils % 2.3 %; Hemoglobin 12.4 g/dL (11.7-16.6); Lymphocytes # 2.2 10^3/uL (0.8-4.8); Lymphocytes % 21.2 %; Mean Corpuscular Hemoglobin 28.6 pg (28.0-34.0); Mean Corpuscular Volume 92.2 fl (80-94); Mean Platelet Volume 10.1 fL (7.4-10.4); Monocytes # 1.2 10^3/uL (0.2-0.9); Monocytes % 12.2 %; Neutrophils % 63.1 %; Nucleated Red Blood Cells % 0 %; Platelet Count 367 10^3/cmm (130-400); Red Blood Count 4.34 10^6/uL (4.1-5.3); Red Cell Distribution Width 17.3 % (12.1-15.1); White Blood Count 10.1 10^3/uL (4.0-10.0)
[2021-06-26 12:20] LABS: Ferritin 67 ng/mL (30-400); Iron 43 ug/dL (59-158)
[2021-06-26 12:25] LABS: Percent Saturation 13.7 % (20-50); Total Iron Binding Capacity 313 mcg/dl; Unsaturated Iron Binding 270 ug/dL (112-347)
--- NOTE | 2021-06-26 13:11 | ONC FU_ITS ---
Dr. Olivo follow up note Patient: Gerardo Pardo Unit #: [id number]: 1935 Dicatated By: Zaid Olivo M.D.Date of Visit:Jun 26, 2021 Onc Med Follow-up/Prog Note History of Present Illness: Mr. Pardo is an 85-year-old gentleman with long-standing history of mild anemia. He started having progressive weakness and palpitations in early August 2018. His lab work up at that time showed severe anemia, hemoglobin 6.9 g , for which he was given 2 units of packed RBCs. With the transfusion services, his hemoglobin improved to 8.9. His anemia workup on 09/17/2018 showed low ferritin 15 , TIBC 391, total iron 16, iron saturation 4%. Mr Pardo was started on oral iron ferrous sulfate 1 tablet by mouth every other day. He had difficulty tolerating oral iron due to GI distress. He denied any history of melena, hematochezia, hemoptysis or hematemesis. He had not had any history of hematuria or jaundice. Mr Pardo has history of coronary artery disease and underwent coronary artery stent placement. He was treated with Plavix and aspirin, as per patient and his daughter after his hemoglobin dropped to 6.9 g Plavix was discontinued and but continued with aspirin.and later on plavix was added again. Patient has history of bladder cancer diagnosed in 1996 at that time underwent radical cystectomy with neobladder at [facility], no further treatment was needed No history of EGD exam. As per daughter colonoscopy was done 6- 7 years ago in [place] for rectal bleed at that time he was told that it was due to hemorrhoids and couple of benign polyps were also removed Last time parenteral iron Injectafer 750 mg weekly ???2 was given in February 2019 with that follow-up CBC done on 05/12/2019 showed hemoglobin 16.1 hematocrit 48.6 ferritin under 17 TIBC 197 B12 356.Injectafer infusion repeated on May 10 and May 22, 2021, with excellent response Patient was seen by Dr. Falcon for GI evaluation but as per patient evaluation was postponed because of normalization of hemoglobin and iron studies Came for follow-up, denies any specific complaints, except right knee swelling, as per patient his PMD gave him prednisone that helped him but still has some discomfort and pain and puffiness, he is scheduled to see his PMD around 1;30 today. No fever or chills, no nausea or vomiting, no diarrhea or constipation, no melena or hematochezia, no hemoptysis hematemesis, no jaundice, no dysuria or hematuria. Patient tolerated Injectafer infusion well, feeling somewhat more energetic. Patient is awaiting EGD/colonoscopy, he said he will call Dr. aFlcon's office and schedule. Medications: C 500 2 Tablet (of 500 mg) Oral daily, Cranberry Extract 1 Capsule (of 200 mg) Oral daily, Crestor 1 Tablet (of 20 mg) Oral daily, Methenamine 0.5 Tablet (of 500 mg) b.i.d., Metoprolol Tartrate 0.5 Tablet (of 25 mg) Oral daily, Multi Vitamin/Minerals 1 Tablet Oral daily, Plavix 1 Tablet (of 75 mg) Oral daily, Probiotic 1 Capsule Oral daily, Stool Softener 1 Capsule (of 100 mg) Oral b.i.d. Allergies: No Known Allergies. Review of Systems: Review of Systems is not available for this patient. Vital Signs: Vitals are not available for this patient. Performance Status: 2 - Ambulatory/capable of all self-care, unable to perform any work activities. Up and about more than 50% of waking hours. (ECOG) Physical Examination: ENMT - No mouth sores, no thrush, no jaundice, Respiratory - Lungs are clear to auscultation, Cardiovascular - Regular rate and rhythm of heart, Abdomen - Soft, bowel sounds present, Extremities - No visible edema, right knee swelling with some puffiness, no overlying skin changes and focal tenderness. Lab/Imaging: Test performed on Dec 31, 2020 08:25 WBC 10.1 10 3/uL RBC 3.37 10 6/uL HGB 8.0 g/dL HCT 27.6 % MCV 81.9 fL MCH 23.7 pg MCHC 29.0 g/dL RDW 17.8 % Platelet Count 388 10 3/cmm MPV 10.2 fL Neutrophils 6.76 10 3/uL Lymphocytes 1.7 10 3/uL Monocytes 1.3 10 3/uL Eosinophils 0.2 10 3/uL Basophils 0.1 10 3/uL Neutrophil % 66.9 % Lymphocyte % 16.8 % Monocyte % 12.8 % Eosinophil % 2.3 % Basophils % 0.6 % NRBC % 0.2 % Impression: Microcytic hypochromic anemia due to iron deficiency due to chronic GI blood loss or malabsorption but most likely due to chronic blood loss. Iron studies done on 09/17/2018 showed ferritin 15 L, TIBC 391, iron saturation 4%, reticulocyte count 3.5% as per patient , Status post 2 units of packed RBCs for hemoglobin 6.9 in early August 2018 Status post Injectafer 750 mg weekly ???2 and August 2018 with good response and repeated again in February 2019 for development of iron deficiency anemia again., Repeat packed RBCs in December 2020 for progressive iron deficiency anemia, status post Injectafer 750 mg IV weekly x2 in December 2020 with excellent response, resolution of iron deficiency anemia, Injectafer 750 mg IV x2 repeated in May 2021, with excellent response Last colonoscopy was done 6-7 years ago for rectal bleeding, as per daughter it was due to hemorrhoids and couple of benign polyps were removed. Plan: Discussed with patient regarding his labs white blood count 10.1 hemoglobin 12.4 g compared to 10.8 g prior to Injectafer infusion, hematocrit 40 platelets 367,000 iron studies shows ferritin 67 compared to 12 before, iron saturation 13.7% iron 43% TIBC 313 Clinically, patient is doing reasonably well except right knee pain/swelling for which he is being managed by his PMD. His lab work-up after Injectafer infusion shows resolution of iron deficiency anemia and improvement in iron stores. Mild leukocytosis, fluctuating, probably due to chronic smoking or now with right knee inflammation/swelling, or underlying early myeloproliferative disorder, will continue to monitor if there is a worsening, may consider whole blood flow cytometry. At this point, we will continue to monitor and he will return to clinic in 2 months with CBC and iron studies. Patient was encouraged to contact Dr. Falcon regarding EGD and colonoscopy. Signed By: Zaid Olivo M.D. <<Signature on File>>
== END 2021-06-26 10:39 | disposition home or self-care (01) ==
LOC: ONCMED 10:43
PROVIDERS: PCP Family Medicine; Visit Provider Internal Medicine Hematology & Oncology
DX: D64.9 Anemia, unspecified (principal); I25.10 Atherosclerotic heart disease of native coronary artery without angina pectoris; Z79.82 Long term (current) use of aspirin; Z79.02 Long term (current) use of antithrombotics/antiplatelets; Z85.51 Personal history of malignant neoplasm of bladder
CPT/HCPCS: 36415; 82728; 83540; 83550; 85025; 99214

== ENCOUNTER 2021-06-28 10:05 | Outpatient (CLI) | payer MEDICARE, OTHER, SELFPAY ==
--- NOTE | 2021-06-28 | XR_ITS ---
WS: [id number] KNEE RIGHT TECHNIQUE: 3 views of the right knee CLINICAL INFORMATION: RIGHT KNEE PAIN COMPARISON: None. FINDINGS: Normal anatomic alignment. No acute fractures. Soft tissue tissue edema. Small suprapatellar effusion . Degenerative narrowing at the patellofemoral articulation. Hypertrophic patella Vascular calcificat ion. XR/XR knee RT 3V* [id number] IMPRESSION: 1. Mild tricompartmental arthritis. 2. Soft tissue edema with a small suprapatellar effusion. 3. No visualized fractures. Kellgren-Stew Classification: grade 3 (moderate): moderate multiple osteoph ytes, definite narrowing of joint space and some sclerosis and possible deformi ty of bone ends
== END 2021-06-28 10:06 | disposition home or self-care (01) ==
PROVIDERS: PCP Family Medicine; Visit Provider Clinical Nurse Specialist Adult Health
DX: M17.11 Unilateral primary osteoarthritis, right knee (principal); M25.461 Effusion, right knee; R60.0 Localized edema
CPT/HCPCS: 73562

== ENCOUNTER 2021-08-02 09:57 | Emergency (ER) | payer MEDICARE, OTHER, SELFPAY ==
[2021-08-02 10:04] VITALS: BP 120/67; PULSE 97; RESP 18; TEMP 37.3; O2SAT 99; BMI 28.0
--- NOTE | 2021-08-02 10:10 | XR_ITS ---
WS: [id number] Exam: XR knee RT 3V* [id number] Date/Time of Exam: 08/02/2021 10:12 AM Reason For Exam: right knee pain and swelling Comparison 06/28/2021. No fracture or dislocation. The joint compartments are preserved. Soft tissue edema along the anterio r aspect of the lower femur. No obvious significant joint effusion. XR/XR knee RT 3V* [id number] IMPRESSION: 1. Anterior soft tissue swelling. 2. No fracture or other significant finding.
--- NOTE | 2021-08-02 10:10 | XR_ITS ---
WS: [id number] Exam: XR shoulder LT min 2V* [id number] Date/Time of Exam: 08/02/2021 10:12 AM Reason For Exam: pain in left shoulder Comparison 04/02/2017. No fracture or dislocation. Soft tissue calcification along the greater tuberosity of the humerus sug gesting the possibility calcific tendinitis or bursitis. Joint structures are preserved. XR/XR shoulder LT min 2V* [id number] IMPRESSION: 1. Probable calcific tendinitis or bursitis. 2. No fracture or other significant finding.
--- NOTE | 2021-08-02 10:12 | W.ED.EXTPRO ---
HPI - Extremity Problem General: Chief complaint: Extremity Problem,Nontraumatic Stated complaint: R KNEE/SHOULDER PAIN Time Seen by Provider: 08/02/21 10:03 History of Present Illness: Patient is a 85-year-old male who comes to the ED with right knee and left shoulder pain. Symptoms have been going on now for approximately 2 months. Patient denies any fall, injury or trauma to cause pain. Right knee is swollen and it hurts for him to bend it or weight-bear. Left shoulder pain hurts whenever he abducts left arm. Associated symptoms: Deny chest pain, fever(s) or rash Review of Systems Const: Denies: fever(s), chills or fatigue Eyes: Denies: change in vision or eye discomfort ENMT: Denies: throat pain, odynophagia, nasal discharge or nasal congestion Card: Denies: chest pain, palpitations, edema, swelling of feet/ankles, dyspnea on exertion or orthopnea Resp: Denies: dyspnea, productive cough or non-productive cough GI: Denies: abdominal pain, nausea, vomiting, diarrhea, constipation or hematochezia : Denies: flank pain, difficulty urinating, dysuria or hematuria Musc: Reports: extremity pain (right knee and left shoulder) and extremity swelling (right knee); Denies: neck pain or back pain Skin/Breast: Denies: rash or new lesions Neuro: Denies: headache(s), numbness in extremities or weakness in extremities PFS ED PFSH: Medical History CAD (coronary artery disease) Chronic UTI COPD (chronic obstructive pulmonary disease) History of bladder cancer Hyperlipidemia associated with type 2 diabetes mellitus Incomplete bladder emptying Renal failure Surgical History H/O elbow surgery History of urinary diversion procedure Previous back surgery S/P PTCA (percutaneous transluminal coronary angioplasty) Family History Father Stroke Mother CHF (congestive heart failure) Cardiomegaly Family/Other Diabetes Grandmother Diabetes Other CAD (coronary artery disease) Denies family history of Clotting disorder Dementia Chronic kidney disease (CKD) Suicide Anesthesia complication Bleeding disorder Lung disease Cancer Social History Alcohol intake: current Alcohol intake frequency: holidays/special occasions only Marital status: Current occupational status: retired History of recent travel: No Physical Exam Const: COMMON NORMALS: no acute distress, patient oriented x3 and alert GENERAL APPEARANCE: cooperative and comfortable HENMT: COMMON NORMALS: normocephalic HEAD & SCALP: normocephalic MOUTH: Normal oral and palatal mucosa present THROAT: posterior oropharynx normal and uvula midline Neck/C-Spine: COMMON NORMALS: supple GENERAL: Yes normal visual inspection Resp: COMMON NORMALS: normal respiratory effort, No retractions, No use of accessory muscles and clear to auscultation bilaterally AUSCULTATION: clear to auscultation bilaterally Cardio: COMMON NORMALS: regular rate, regular rhythm, S1 normal heart sound present, S2 normal heart sound present, No gallops present (Cardio), No clicks present (Cardio), No murmurs present (Cardio) and Peripheral pulses 2+ throughout RATE: regular rate RHYTHM: regular rhythm HEART SOUNDS: S1 normal heart sound present and S2 normal heart sound present PERIPHERAL PULSES: Peripheral pulses 2+ throughout GI: COMMON NORMALS: Normal to inspection, nondistended, normoactive bowel sounds present, Soft to palpation, non-tender and no masses PALPATION: Yes Soft to palpation : COMMON NORMALS: Yes no CVA tenderness BLADDER/KIDNEY EXAM: Yes no CVA tenderness Back/Pelvis: COMMON NORMALS: no CVA tenderness Extremity: GENERAL: Yes normal exam except as noted RIGHT LOWER EXTREMITY: Yes knee joint Right knee: Yes inspection (No erythema or warmth noted.), Yes palpation (Tender to palpitation over patella region), Yes ROM (Limited due to pain) and Yes neurovascular exam (Intact.) Neuro: COMMON NORMALS: patient oriented x3 and moves all extremities SENSORIUM/ORIENTATION: Yes alert Skin: GENERAL SKIN EXAM: dry skin Course Vital Signs: Vital signs: Vital Signs Temperature 99.1 F 08/02/21 10:04 Pulse Rate 101 H 08/02/21 14:02 Respiratory Rate 13 08/02/21 14:02 Blood Pressure 117/66 08/02/21 14:02 Pulse Oximetry 93 08/02/21 14:02 MDM - Extremity (Nontraumatic) Medical Decision Making Patient is a 85-year-old male who comes to the ED with pain in the right knee and left shoulder. Pain has been going on for the past 2 months patient denies any injury or trauma to cause pain. Knee x-ray showed anterior soft tissue swelling no fractures. Left shoulder x-ray showed calcific tendinitis. Ultrasound venous duplex was done showing no DVT or blood clot. Ultrasound showed a large Rao's cyst in the right knee. Placed order with case management for patient to be referred to Ortho for follow-up and further management of right knee and left shoulder pain. return to ED precautions given. Patient understood and agreed with plan. Lab Data Radiology Impressions Knee X-Ray 08/02/21 10:10 IMPRESSION: 1. Anterior soft tissue swelling. 2. No fracture or other significant finding. Shoulder X-Ray 08/02/21 10:10 IMPRESSION: 1. Probable calcific tendinitis or bursitis. 2. No fracture or other significant finding. Imaging Data US Vascular: Radiologist's impression: Ultrasound venous duplex right lower extremity showed no DVT or blood clots seen. Large Rao's cyst seen in right knee. 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 Qualifiers: Laterality: right Qualified Code(s): M71.21 - Synovial cyst of popliteal space [Rao], right knee Condition: Stable Prescriptions: New Percocet 5-325 mg tablet 1 tab PO Q8H PRN (Reason: pain) Qty: 9 0RF lidocaine 5 % adhesive patch,medicated 1 patch topical DAILY PRN (Reason: pain) 30 Days Qty: 30 0RF Rx Instructions: leave on most painful area for up to 12 hrs aloe vera Gel 1 applic topical DAILY PRN (Reason: pain) 10 Days Qty: 170 0RF Biofreeze (menthol) 5 % gel 1 ea topical BID PRN (Reason: pain) 10 Days Qty: 1 0RF No Action famotidine 20 mg tablet 20 mg PO BID 0RF methenamine hippurate 1 gram tablet 1 g PO BID Qty: 60 12RF Rx Instructions: Take 1000 mg of vitamin C with each dose of methenamine latanoprost 0.005 % drops 1 drp ophthalmic (eye) DAILY PRN (Reason: Eye Irritation) 0RF Lumigan 0.01 % drops 1 drp ophthalmic (eye) DAILY PRN (Reason: Eye Irritation) 0RF cranberry 400 mg capsule 400 mg PO DAILY 0RF multivitamin Tablet 1 tab PO DAILY 0RF Adult 50 Plus Probiotic 4 billion cell capsule 4,000 mmu cells PO DAILY 0RF nitroglycerin [Nitrostat] 0.4 mg tablet, sublingual 0.4 mg SUBLINGUAL Q5M PRN (Reason: chest pain) 0RF metoprolol tartrate 25 mg tablet 12.5 mg PO DAILY 0RF ascorbic acid (vitamin C) 500 mg tablet 1,000 mg PO BID 0RF docusate sodium [Stool Softener] 100 mg capsule 100 mg PO BID 0RF IMMUNE 1 tab PO DAILY 0RF clopidogrel [Plavix] 75 mg tablet 75 mg PO DAILY Qty: 90 3RF rosuvastatin 20 mg tablet 20 mg PO DAILY Qty: 90 3RF Discharge Orders: Discharge ED (Routine); Ordered 08/02/21 Ordered By: Denny Galvin Referrals: Jovanny Pacheco DO [Primary Care Provider] - Discharge Diet: Regular Discharge Activity: Increase activity as tolerated Patient Instructions: Rao Cyst (ED), Calcific Tendinitis (ED), Opioid Safety Activity Restrictions/Additional Instructions: Follow-up with medical provider as directed. Case management should be contacting you in the next several days to set up an appointment with Ortho for further evaluation and management of left shoulder and right knee pain. Take medications as prescribed. Return to the ER or your medical provider if condition worsens. Please read and understand discharge instructions. Thank you for choosing [facility] for your healthcare needs today. Please realize this is an emergency room and that we are providing you with a medical screening exam and this may not be complete and all inclusive of all the testing and or work up that you may need to determine your ailment or severity of your illness. It is very important that you follow up as instructed or that you return to the Emergency Department should you have concerns or if your condition changes or worsens in any way. 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
[2021-08-02 10:24] VITALS: RESP 15
[2021-08-02] MEDS: oxyCODONE 5 mg IR Tab/Cap PO (10:24)
--- NOTE | 2021-08-02 10:52 | USCV_ITS ---
Gerardo Pardo Age: 85 Gender: M : 1935 Exam Date: 08/02/2021 11:04 Ordering Phys: Denny Galvin Technologist: Exam Location: [facility] Indication: RT LEG PAIN HISTORY: PAIN BEHIND RT KNEE PROCEDURES: Venous duplex imaging was performed in only the right lower extremity. The following venous structures were evaluated: common femoral vein, profunda vein, proximal portion of the greater saphenous vein, superficial femoral vein, and the popliteal vein. In addition, the posterior tibial and peroneal trunk were evaluated. FINDINGS: Normal 2-D Doppler and augmentation and compressibility throughout the lower extremity venous structures. Additional imaging through the proximal calf veins also reveals no thrombus. Limited evaluation of the greater saphenous vein is patent with no thrombus. Complex cystic mass with low level echos and no vascularity measuring 5.9 x 1.3 cm in the right popliteal fossa. CONCLUSIONS No DVT right lower extremity. Right popliteal fossa Rao's cyst. Dr. Nettie Mitchell DO (Electronically Signed) Final Date: 02 August 2021 11:29 S
--- NOTE | 2021-08-02 11:42 | PC.PHAR ---
PT DAUGHTER HELPS PT WITH MEDS- DAUGHTER STATES PT ONLY USES ALL EYE DROPS PRN.
[2021-08-02 14:02] VITALS: BP 117/66; PULSE 101; RESP 13; O2SAT 93
--- NOTE | 2021-08-05 09:25 | DCPLANNER ---
Addendum entered by Macy Rapp 08/09/21 13:46: Patient had a follow up appointment scheduled for 08.09.[address] Rucker at ortho - patient did attend appointment. Addendum entered by Macy Rapp 08/05/21 09:28: senior operations manager spoke with patients daughter about follow up appointment with primary care physician, patients daughter stated that patient has a followup appointment scheduled with his primary care physician. Original Note: senior operations manager had message to schedule a follow up appointment for patient with ortho. senior operations manager called the ortho clinic, spoke with Chante, gave clinic patients information. senior operations manager was told that patients information would be printed and reviewed. Clinic will call patient with appointment information.
== END 2021-08-02 13:59 | disposition home or self-care (01) ==
PROVIDERS: Emergency Provider Physician Assistant; PCP Family Medicine
DX: M71.21 Synovial cyst of popliteal space [Baker], right knee (principal); M65.222 Calcific tendinitis, left upper arm; Z79.02 Long term (current) use of antithrombotics/antiplatelets; I25.10 Atherosclerotic heart disease of native coronary artery without angina pectoris; J44.9 Chronic obstructive pulmonary disease, unspecified; Z85.51 Personal history of malignant neoplasm of bladder; E78.5 Hyperlipidemia, unspecified; E11.9 Type 2 diabetes mellitus without complications
CPT/HCPCS: 73030; 73562; 93971; 99283

== ENCOUNTER 2021-08-28 10:27 | Outpatient (CLI) | payer MEDICARE, OTHER, SELFPAY ==
[2021-08-28 10:59] LABS: Basophils % 0.2 %; Hematocrit 25.5 % (42.0-52.0); Hemoglobin 7.8 g/dL (11.7-16.6); Lymphocytes % 10.3 %; Mean Corpuscular HGB Conc 30.6 g/dL (30.0-36.0); Mean Corpuscular Hemoglobin 24.6 pg (28.0-34.0); Mean Corpuscular Volume 80.4 fl (80-94); Mean Platelet Volume 10.1 fL (7.4-10.4); Monocytes # 0.8 10^3/uL (0.2-0.9); Monocytes % 7.7 %; Neutrophils # 8.01 10^3/uL (1.8-7.7); Neutrophils % 81.3 %; Nucleated Red Blood Cells % 0 %; Platelet Count 357 10^3/cmm (130-400); Red Blood Count 3.17 10^6/uL (4.1-5.3); Red Cell Distribution Width 16.3 % (12.1-15.1); White Blood Count 9.9 10^3/uL (4.0-10.0)
[2021-08-28 11:15] LABS: Ferritin 20 ng/mL (30-400); Iron 19 ug/dL (59-158); Percent Saturation 6.8 % (20-50); Total Iron Binding Capacity 279 mcg/dl; Unsaturated Iron Binding 260 ug/dL (112-347)
== END 2021-08-28 10:28 | disposition home or self-care (01) ==
PROVIDERS: PCP Family Medicine; Visit Provider Internal Medicine Hematology & Oncology
DX: D50.9 Iron deficiency anemia, unspecified (principal)
CPT/HCPCS: 36415; 82728; 83540; 83550; 85025

== ENCOUNTER 2021-08-29 09:59 | Outpatient (CLI) | payer MEDICARE, OTHER, SELFPAY ==
[2021-08-29] VITALS (10 sets, daily range): BP systolic 104–135; BP diastolic 56–78; PULSE 68–99; RESP 16–18; TEMP 36.2–36.9; O2SAT 97–99
[2021-08-29] MEDS: sodium chloride 0.9% 250 ML 999 ML IV (11:37)
[2021-08-29] MEDS: acetaminophen 325 mg Tablet 650 MG PO (11:37)
[2021-08-29] MEDS: diphenhydrAMINE 25 mg Capsule PO (11:37)
[2021-08-29] MEDS: nicotine 21 mg Patch 1 PATCH TRANSDERMA (12:27)
[2021-08-29] MEDS: FUROsemide 10 mg/mL SDV 2mL 20 MG IV (13:24)
== END 2021-08-29 10:00 | disposition home or self-care (01) ==
PROVIDERS: PCP Family Medicine; Visit Provider Internal Medicine Hematology & Oncology
DX: D50.9 Iron deficiency anemia, unspecified (principal)
CPT/HCPCS: 36430; 86850; 86900; 86920; 96374; J1940; J7050; P9016

== ENCOUNTER 2021-09-05 08:07 | Outpatient (CLI) | payer MEDICARE, OTHER, SELFPAY ==
[2021-09-05 08:52] LABS: Basophils # 0.1 10^3/uL (0.0-0.1); Basophils % 0.6 %; Eosinophils # 0.3 10^3/uL (0.0-0.8); Eosinophils % 2.6 %; Hematocrit 37.1 % (42.0-52.0); Hemoglobin 11.3 g/dL (11.7-16.6); Lymphocytes # 2.2 10^3/uL (0.8-4.8); Lymphocytes % 18.4 %; Mean Corpuscular HGB Conc 30.5 g/dL (30.0-36.0); Mean Corpuscular Hemoglobin 24.9 pg (28.0-34.0); Mean Corpuscular Volume 81.7 fl (80-94); Mean Platelet Volume 10.4 fL (7.4-10.4); Monocytes # 1.7 10^3/uL (0.2-0.9); Monocytes % 14.1 %; Neutrophils # 7.66 10^3/uL (1.8-7.7); Neutrophils % 63.1 %; Nucleated Red Blood Cells % 0 %; Platelet Count 540 10^3/cmm (130-400); Red Blood Count 4.54 10^6/uL (4.1-5.3); Red Cell Distribution Width 16.6 % (12.1-15.1); White Blood Count 12.1 10^3/uL (4.0-10.0)
[2021-09-05 10:03] LABS: Alanine Aminotransferase 16 U/L (0-41); Albumin Level 3.9 g/dL (3.5-5.2); Alkaline Phosphatase 94 IU/L (40-130); Anion Gap 17.9 (5-19); Aspartate Amino Transferase 12 U/L (0-40); Blood Urea Nitrogen 20 mg/dL (8-23); Carbon Dioxide 22 mmol/L (22-29); Chloride 102 mmol/L (98-107); Ferritin 14 ng/mL (30-400); Globulin 2.5 g/dL (1.3-4.6); Glucose 176 mg/dL (65-115); Iron 20 ug/dL (59-158); Osmolality Calculated 293 mOsm/kg (285-295); Percent Saturation 5.4 % (20-50); Potassium 3.9 mmol/L (3.5-5.1); Sodium 138 mmol/L (136-145); Total Bilirubin 0.2 mg/dL (0.15-1.2); Total Iron Binding Capacity 370 mcg/dl; Total Protein 6.4 g/dL (6.6-8.7); Unsaturated Iron Binding 350 ug/dL (112-347)
[2021-09-05] MEDS: ferric carboxy (IVPB) 750 MG in sodium chloride 0.9% (100 ml) 100 ML 600 MG IV (11:14)
--- NOTE | 2021-09-06 12:09 | ONC FU_ITS ---
Dr. Olivo follow up note Patient: Gerardo Pardo Unit #: [id number]: 1935 Dicatated By: Zaid Olivo M.D.Date of Visit:Sep 05, 2021 Onc Med Follow-up/Prog Note History of Present Illness: Mr. Pardo is an 86-year-old gentleman with long-standing history of mild anemia. He started having progressive weakness and palpitations in early August 2018. His lab work up at that time showed severe anemia, hemoglobin 6.9 g , for which he was given 2 units of packed RBCs. With the transfusion services, his hemoglobin improved to 8.9. His anemia workup on 09/17/2018 showed low ferritin 15 , TIBC 391, total iron 16, iron saturation 4%. Mr Pardo was started on oral iron ferrous sulfate 1 tablet by mouth every other day. He had difficulty tolerating oral iron due to GI distress. He denied any history of melena, hematochezia, hemoptysis or hematemesis. He had not had any history of hematuria or jaundice. Mr Pardo has history of coronary artery disease and underwent coronary artery stent placement. He was treated with Plavix and aspirin, as per patient and his daughter after his hemoglobin dropped to 6.9 g Plavix was discontinued and but continued with aspirin.and later on plavix was added again. Patient has history of bladder cancer diagnosed in 1996 at that time underwent radical cystectomy with neobladder at [facility], no further treatment was needed No history of EGD exam. As per daughter colonoscopy was done 6- 7 years ago in [place] for rectal bleed at that time he was told that it was due to hemorrhoids and couple of benign polyps were also removed Last time parenteral iron Injectafer 750 mg weekly ???2 was given in February 2019 with that follow-up CBC done on 05/12/2019 showed hemoglobin 16.1 hematocrit 48.6 ferritin under 17 TIBC 197 B12 356.Injectafer infusion repeated on May 10 and May 22, 2021, with excellent response Patient was seen by Dr. Falcon for GI evaluation but as per patient evaluation was postponed because of normalization of hemoglobin and iron studies Came for follow-up, denies any specific complaint, feeling much better since blood transfusion given on August 29, 2021 for aggressive iron deficiency anemia. Denies any melena or hematochezia denies any mops or hematemesis denies any jaundice. As per patient and his daughter patient has seen Dr. 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 So patient wants to wait and watch. Medications: C 500 2 Tablet (of 500 mg) Oral daily, Cranberry Extract 1 Capsule (of 200 mg) Oral daily, Crestor 1 Tablet (of 20 mg) Oral daily, Methenamine 0.5 Tablet (of 500 mg) b.i.d., Metoprolol Tartrate 0.5 Tablet (of 25 mg) Oral daily, Multi Vitamin/Minerals 1 Tablet Oral daily, Plavix 1 Tablet (of 75 mg) Oral daily, Probiotic 1 Capsule Oral daily, Stool Softener 1 Capsule (of 100 mg) Oral b.i.d. Allergies: No Known Allergies. Review of Systems: Review of Systems is not available for this patient. Vital Signs: Performed on Sep 05, 2021 11:46 Height - 68.00 in Weight - 170.6 lbs (LOW) BSA - 1.91 sq.m BMI - 25.94 Temperature - 97.8 F (LOW) Pulse - 113 /min (HIGH) Respiration - 18 /min BP - 128/72 mm(hg) O2 Sat - 99 % Pain - 0 Fatigue - 5 Performed on Sep 05, 2021 11:35 Height - 68.00 in Temperature - 98.3 F (LOW) Pulse - 92 /min Respiration - 18 /min BP - 128/82 mm(hg) O2 Sat - 97 % Performance Status: 1 - No physically strenuous activity, but ambulatory and able to carry out light or sedentary work (e.g. office work, light house work). (ECOG) Physical Examination: ENMT - No mouth sores, no thrush, no jaundice, Respiratory - Lungs are clear to auscultation, Cardiovascular - Regular rate and rhythm of heart with Murmur and click, Abdomen - Soft, bowel sounds present, Extremities - Trace edema bilaterally. Lab/Imaging: Most recent lab results are not available for this patient. Impression: Microcytic hypochromic anemia due to iron deficiency due to chronic GI blood loss or malabsorption but most likely due to chronic blood loss. Iron studies done on 09/17/2018 showed ferritin 15 L, TIBC 391, iron saturation 4%, reticulocyte count 3.5% as per patient , Status post 2 units of packed RBCs for hemoglobin 6.9 in early August 2018 Status post Injectafer 750 mg weekly ???2 and August 2018 with good response and repeated again in February 2019 for development of iron deficiency anemia again., Repeat packed RBCs in December 2020 for progressive iron deficiency anemia, status post Injectafer 750 mg IV weekly x2 in December 2020 with excellent response, resolution of iron deficiency anemia, Injectafer 750 mg IV x2 repeated in May 2021, with excellent response Last colonoscopy was done 6-7 years ago for rectal bleeding, as per daughter it was due to hemorrhoids and couple of benign polyps were removed. Plan: Discussed with patient regarding his labs white blood count 12.1 hemoglobin 11.3 g compared to 7.8 g prior to blood transfusion given on August 29, 2021 hematocrit 37.1 platelets 540,000 CMP within normal limit except glucose 176 and iron studies shows iron saturation 5.4% ferritin 14, iron 20 TIBC 370 Clinically, patient is doing well since blood transfusion, his follow-up lab work-up shows significant improvement in his hemoglobin, now 11.3 g compared to 7.8 g prior to blood transfusion, patient was given 2 units of packed RBC. His follow-up iron studies shows persistent iron deficiency anemia, will consider Injectafer 750 mg IV weekly x2 and then he will return to clinic in 1 month after second dose with CBC and iron studies. Patient was referred to Dr. Falcon for GI evaluation for blood loss, as per patient and his daughter, patient is concerned about anesthesia as last time he become hypotensive due to some 'vagal syndrome' like issues and now rather postpone GI evaluation for the time being. Return to clinic in 1 month with CBC and iron studies Signed By: Zaid Olivo M.D. <<Signature on File>>
== END 2021-09-05 08:08 | disposition home or self-care (01) ==
PROVIDERS: PCP Family Medicine; Visit Provider Internal Medicine Hematology & Oncology
DX: D50.8 Other iron deficiency anemias (principal); I25.10 Atherosclerotic heart disease of native coronary artery without angina pectoris; Z79.899 Other long term (current) drug therapy; Z79.82 Long term (current) use of aspirin; Z79.02 Long term (current) use of antithrombotics/antiplatelets; Z85.51 Personal history of malignant neoplasm of bladder
CPT/HCPCS: 36415; 80053; 82728; 83540; 83550; 85025; 96365; 99214; J1439

== ENCOUNTER 2021-09-12 10:03 | Outpatient (CLI) | payer MEDICARE, OTHER, SELFPAY ==
[2021-09-12] MEDS: ferric carboxy (IVPB) 750 MG in sodium chloride 0.9% (100 ml) 100 ML 345 MG IV (10:40)
== END 2021-09-12 10:04 | disposition home or self-care (01) ==
LOC: ONCMED 10:04
PROVIDERS: PCP Family Medicine; Visit Provider Internal Medicine Hematology & Oncology
DX: D50.8 Other iron deficiency anemias (principal)
CPT/HCPCS: 96365; J1439

== ENCOUNTER 2021-10-14 10:39 | Oncology outpatient (recurring) (ONCR) | payer MEDICARE, OTHER, SELFPAY ==
[2021-10-14 11:00] LABS: Basophils # 0.1 10^3/uL (0.0-0.1); Basophils % 0.6 %; Eosinophils # 0.2 10^3/uL (0.0-0.8); Eosinophils % 1.4 %; Hematocrit 42.1 % (42.0-52.0); Hemoglobin 13.2 g/dL (11.7-16.6); Lymphocytes # 2.4 10^3/uL (0.8-4.8); Lymphocytes % 21.7 %; Mean Corpuscular HGB Conc 31.4 g/dL (30.0-36.0); Mean Corpuscular Hemoglobin 27.6 pg (28.0-34.0); Mean Corpuscular Volume 88.1 fl (80-94); Mean Platelet Volume 10.7 fL (7.4-10.4); Monocytes # 1.3 10^3/uL (0.2-0.9); Neutrophils # 7.11 10^3/uL (1.8-7.7); Neutrophils % 63.9 %; Nucleated Red Blood Cells % 0 %; Platelet Count 342 10^3/cmm (130-400); Red Blood Count 4.78 10^6/uL (4.1-5.3); Red Cell Distribution Width 21.2 % (12.1-15.1); White Blood Count 11.1 10^3/uL (4.0-10.0)
[2021-10-14 11:22] LABS: Ferritin 200 ng/mL (30-400); Iron 62 ug/dL (59-158); Percent Saturation 24.4 % (20-50); Total Iron Binding Capacity 254 mcg/dl; Unsaturated Iron Binding 192 ug/dL (112-347)
== END 2021-11-05 23:59 | disposition home or self-care (01) ==
LOC: ONCMED 10:40
PROVIDERS: Internal Medicine Hematology & Oncology; PCP Family Medicine; Referring Provider Family Medicine; Visit Provider Nurse Practitioner Family
DX: D50.9 Iron deficiency anemia, unspecified (principal); Z86.010 Personal history of colon polyps
CPT/HCPCS: 82728; 83540; 83550; 85025; 99214; 99999

== ENCOUNTER 2021-10-20 17:57 | Inpatient (IN) | payer MEDICARE, OTHER, SELFPAY ==
[2021-10-20] VITALS (18 sets, daily range): BP systolic 91–138; BP diastolic 68–80; PULSE 109–138; RESP 16–31; TEMP 36.8; O2SAT 91–97; BMI 26.6
--- NOTE | 2021-10-20 18:18 | CTR_ITS ---
PROCEDURE INFORMATION: Exam: CT Chest Without Contrast; Diagnostic Exam date and time: 10/20/2021 6:41 PM Age: 86 years old Clinical indication: Nausea and vomiting; Shortness of breath; Prior surgery; Surgery date: 6+ months; Surgery type: Back, urinary diversion(balder ca); Patient HX: C/O SOB, chronic cough, abd tenderness w n/v; Additional info: SOB, vomiting, HX of sbo TECHNIQUE: Imaging protocol: Diagnostic computed tomography of the chest without contrast. Radiation optimization: All CT scans at this facility use at least one of these dose optimization techniques: automated exposure control; mA and/or kV adjustment per patient size (includes targeted exams where dose is matched to clinical indication); or iterative reconstruction. COMPARISON: CT abdomen pelvis w con* [id number] 08/06/2018 2:28 PM RADIATION DOSE METRICS: Total DLP (mGy-cm): 1217.42 FINDINGS: Lungs: There is mild patchy branching reticulonodular (tree-in-bud) opacity in right upper lobe and right middle lobe. There is mild upper lung predominant centrilobular emphysema. Pleural spaces: There is no pleural effusion or pneumothorax. Heart: There is severe coronary artery calcification. Heart size is normal. There is no pericardial effusion. Mediastinal space: The distal esophagus is fluid distended. Lymph nodes: There is no mediastinal or hilar lymphadenopathy. Vasculature: There is moderate aortic atherosclerotic disease. Bones/joints: Bones are unremarkable. Soft tissues: The extrathoracic soft tissues are unremarkable. PROCEDURE INFORMATION: Exam: CT Abdomen And Pelvis Without Contrast Exam date and time: 10/20/2021 6:41 PM Age: 86 years old Clinical indication: Nausea and vomiting; Shortness of breath; Prior surgery; Surgery date: 6+ months; Surgery type: Back, urinary diversion(balder ca); Patient HX: C/O SOB, chronic cough, abd tenderness w n/v; Additional info: SOB, vomiting, HX of sbo TECHNIQUE: Imaging protocol: Computed tomography of the abdomen and pelvis without contrast. Radiation optimization: All CT scans at this facility use at least one of these dose optimization techniques: automated exposure control; mA and/or kV adjustment per patient size (includes targeted exams where dose is matched to clinical indication); or iterative reconstruction. COMPARISON: CT abdomen pelvis w con* [id number] 08/06/2018 2:28 PM RADIATION DOSE METRICS: Total DLP (mGy-cm): 1217.42 FINDINGS: Liver: The liver is normal. Gallbladder and bile ducts: The gallbladder is normal. There is no biliary dilation. Pancreas: The pancreas is unremarkable. Spleen: Splenic size is normal. There are scattered calcifications consistent with healed granulomas. Adrenal glands: The adrenal glands are unremarkable. Kidneys and ureters: There is multifocal bilateral renal cortical scarring, greater on the left. There are simple cysts in the left kidney. There is bilateral renal vascular calcification. There is no hydronephrosis or ureteral dilation. There is a 4 mm parenchymal calcification in the interpolar region of the right kidney. Stomach and bowel: The stomach is unremarkable. Proximal to mid small bowel is dilated and fluid filled. There are fecalized small bowel contents just above an anastomosis in the midline lower abdomen. See series 3, image 61. Distal to the anastomosis the bowel is nondistended. The colon is unremarkable. Appendix: The appendix is normal. Intraperitoneal space: There is no free air or significant intraperitoneal free fluid. Vasculature: There is severe aortic atherosclerotic disease. Lymph nodes: There is no lymphadenopathy in the retroperitoneum, mesentery, pelvis or inguinal regions. Urinary bladder: Unremarkable nondistended neobladder, similar in appearance to the 08/06/2018. Reproductive: The prostate has been removed. Bones/joints: Bones are unremarkable. Soft tissues: There is a small fat containing ventral hernia. CT/CT chest abd pel wo con IMPRESSION: Mild patchy opacities in the right upper and middle lobes suggest infection. IMPRESSION: 1. Distal small bowel obstruction at the level of an ileo-ileal anastomosis. 2. Incidental findings above. COMMENTS: Consistent with the [employer]'s Incidental Findings Committee white paper (J Am Betty Radiol 2018): Any incidental renal lesion less than 1 cm or classified as too small to characterize, or any incidental cystic renal lesion characterized as simple-appearing, is likely benign. No follow-up imaging is recommended for these lesions per consensus recommendations based on imaging criteria.
--- NOTE | 2021-10-20 18:20 | ECG_ITS ---
[facility] Test Date: 2021-10-20 Pat Name: Gerardo Pardo Department: Room: Gender: Male [employer]: : 1935 Requested By: Pasha Baldwin Order Number: [id number] MD: Arminda Etienne M.D. Measurements Intervals [place] Rate: 116 P: 44 ND: 108 QRS: 269 QRSD: 141 T: 68 QT: 345 QTc: 481 Interpretive Statements SINUS TACHYCARDIA WITH SHORT ND INTERVAL RIGHT AXIS DEVIATION [QRS AXIS > 100] RIGHT BUNDLE BRANCH BLOCK POSSIBLE ANTEROSEPTAL MYOCARDIAL INFARCTION , OF INDETERMINATE AGE Compared to ECG 10/20/2017 05:43:16 Short ND interval now present Right-axis deviation now present Left anterior fascicular block no longer present Myocardial infarct finding still present Electronically Signed On 10-21-2021 17:39:05 CDT by Arminda Etienne M.D. [id number]
[2021-10-20] MEDS: morphine 4 mg/mL SDV 1 mL 2 MG IVP (18:29)
[2021-10-20] MEDS: ondansetron 2 mg/ML SDV 2 mL 4 MG IVP (18:29)
[2021-10-20] MEDS: sodium chloride 0.9% 1,000 ML 999 ML IV (18:30)
[2021-10-20 18:49] LABS: Basophils # 0.1 10^3/uL (0.0-0.1); Basophils % 0.3 %; Eosinophils % 0.2 %; Hematocrit 47.5 % (42.0-52.0); Hemoglobin 15.1 g/dL (11.7-16.6); Lymphocytes # 1.4 10^3/uL (0.8-4.8); Mean Corpuscular HGB Conc 31.8 g/dL (30.0-36.0); Mean Corpuscular Hemoglobin 27.9 pg (28.0-34.0); Mean Corpuscular Volume 87.8 fl (80-94); Mean Platelet Volume 11.2 fL (7.4-10.4); Monocytes # 2.1 10^3/uL (0.2-0.9); Monocytes % 10.4 %; Neutrophils # 16.08 10^3/uL (1.8-7.7); Neutrophils % 81.8 %; Nucleated Red Blood Cells % 0 %; Platelet Count 297 10^3/cmm (130-400); Red Blood Count 5.41 10^6/uL (4.1-5.3); Red Cell Distribution Width 21.2 % (12.1-15.1); White Blood Count 19.7 10^3/uL (4.0-10.0)
--- NOTE | 2021-10-20 19:05 | ED_ITS ---
HPI - Nausea/Vomiting/Diarrhea General: Chief complaint: Nausea/Vomiting/Diarrhea Stated complaint: N/V Time Seen by Provider: 10/20/21 18:09 History of Present Illness: 85-year-old gentleman with a history of small bowel obstruction awoke with abdominal pain at 3 AM. He started vomiting around 6 or 7 in the morning. He has vomited a few times today. He is continued with belly pain. This is despite Zofran at home. No fever. He has been more short of breath lately to. When asked how long he has had his cough, he says for a very long time, and that he is always short of breath. No diarrhea. MD elicited complaint: nausea, vomiting and abdominal pain Onset (ago): hour(s) Description of vomiting: food contents and watery Associated nausea: Yes Associated abdominal pain: Yes Location of pain: Diffuse Associated symtoms: Reports cough, nausea and short of breath; Denies altered mental status, chest pain, fevers/chills or headache(s) Review of Systems Const: Denies: fever(s) ENMT: Denies: throat pain Card: Denies: chest pain Resp: Denies: dyspnea, productive cough or non-productive cough GI: Reports: abdominal pain, nausea and vomiting Neuro: Denies: headache(s) PFSH ED PFSH: Medical History CAD (coronary artery disease) Chronic UTI COPD (chronic obstructive pulmonary disease) History of bladder cancer Hyperlipidemia associated with type 2 diabetes mellitus Incomplete bladder emptying Renal failure Surgical History H/O elbow surgery History of urinary diversion procedure Previous back surgery S/P PTCA (percutaneous transluminal coronary angioplasty) Family History Father Stroke Mother CHF (congestive heart failure) Cardiomegaly Family/Other Diabetes Grandmother Diabetes Other CAD (coronary artery disease) Denies family history of Clotting disorder Dementia Chronic kidney disease (CKD) Suicide Anesthesia complication Bleeding disorder Lung disease Cancer Social History Smoking and tobacco status: current every day smoker (1 to 1.5 ppd) cigarettes Alcohol intake: current Alcohol intake frequency: holidays/special occasions only Marital status: Current occupational status: retired History of recent travel: No Physical Exam Const: EXAM LIMITATIONS: no altered mental status HENMT: COMMON NORMALS: normocephalic, atraumatic and Normal external nose present HEAD & SCALP: normocephalic and atraumatic NOSE: Normal external nose present Eye: COMMON NORMALS: Equal, round and reactive pupils present and EOMs intact bilaterally PUPIL: Yes Equal, round and reactive pupils present Neck/C-Spine: GENERAL: Yes trachea midline Chest: COMMONS NORMALS: normal inspection of the chest Resp: COMMON NORMALS: normal respiratory effort and No use of accessory muscles AUSCULTATION: rhonchi (Bilateral) Cardio: COMMON NORMALS: regular rate and regular rhythm RATE: regular rate RHYTHM: regular rhythm GI: PALPATION: Yes Firmness to palpation present (GI) (Left abdomen) and Yes Tenderness to palpation present (GI) Details: LLQ and LUQ : COMMON NORMALS: Yes no CVA tenderness BLADDER/KIDNEY EXAM: Yes no CVA tenderness Back/Pelvis: COMMON NORMALS: no CVA tenderness Course Consultations: Consultation #1: chela, surgery. will consult Consultation #2: Segun Vital Signs: Vital signs: Vital Signs Pulse Rate 110 H 10/20/21 19:40 Respiratory Rate 20 H 10/20/21 19:40 Blood Pressure 138/79 10/20/21 19:40 Pulse Oximetry 93 10/20/21 19:40 MDM - Nausea/Vomiting/Diarrhea Medical Decision Making 86-year-old gentleman with a history of small bowel obstruction. He presents with abdominal pain and vomiting, mainly left side. His white blood cell count is 20. BUN is 29 with creatinine 1.1. Potassium is normal. CT scan shows small bowel obstruction at the level of the ileoileal anastomosis distally. Counseled the patient and his daughter regarding results. Consulted surgery. Recommendations are nasogastric tube, IV fluids, they will consult in the morning. Hospitalist was consulted from the ER, and he will evaluate the patient here. NG tube will be placed in the ER. The patient has strong vagal response to a gag reflex per his daughter. Because of this, we will use nebulized lidocaine, and 1 dose of Versed for anxiolysis. Lab Data : 10/20/21 18:37 10/20/21 18:37 Radiology Impressions Chest/Abdomen/Pelvis CT 10/20/21 18:18 IMPRESSION: Mild patchy opacities in the right upper and middle lobes suggest infection. IMPRESSION: 1. Distal small bowel obstruction at the level of an ileo-ileal anastomosis. 2. Incidental findings above. COMMENTS: Consistent with the [employer]'s Incidental Findings Committee white paper (J Am Betty Radiol 2018): Any incidental renal lesion less than 1 cm or classified as too small to characterize, or any incidental cystic renal lesion characterized as simple-appearing, is likely benign. No follow-up imaging is recommended for these lesions per consensus recommendations based on imaging criteria. ADDENDUM: 10/20/212005 THIS REPORT CONTAINS FINDINGS THAT MAY BE CRITICAL TO PATIENT CARE. The findings were verbally communicated via telephone conference with WANDY MCNEIL at 8:05 PM CDT on 10/20/2021. The findings were acknowledged and understood. Laboratory Results WBC 19.7 10^3/uL (4.0-10.0) H 10/20/21 18:37 RBC 5.41 10^6/uL (4.1-5.3) H 10/20/21 18:37 Hgb 15.1 g/dL (11.7-16.6) 10/20/21 18:37 Hct 47.5 % (42.0-52.0) 10/20/21 18:37 MCV 87.8 fl (80-94) 10/20/21 18:37 MCH 27.9 pg (28.0-34.0) L 10/20/21 18:37 MCHC 31.8 g/dL (30.0-36.0) 10/20/21 18:37 RDW 21.2 % (12.1-15.1) H 10/20/21 18:37 Plt Count 297 10^3/cmm (130-400) 10/20/21 18:37 MPV 11.2 fL (7.4-10.4) H 10/20/21 18:37 Neut % (Auto) 81.8 % 10/20/21 18:37 Lymph % (Auto) 7.0 % 10/20/21 18:37 Me[place] % (Auto) 10.4 % 10/20/21 18:37 Eos % (Auto) 0.2 % 10/20/21 18:37 Baso % (Auto) 0.3 % 10/20/21 18:37 Neut # (Auto) 16.08 10^3/uL (1.8-7.7) H 10/20/21 18:37 Lymph # (Auto) 1.4 10^3/uL (0.8-4.8) 10/20/21 18:37 [place] # (Auto) 2.1 10^3/uL (0.2-0.9) H 10/20/21 18:37 Eos # (Auto) 0.0 10^3/uL (0.0-0.8) 10/20/21 18:37 Baso # (Auto) 0.1 10^3/uL (0.0-0.1) 10/20/21 18:37 Nucleated RBC % (auto) 0 % 10/20/21 18: Nucleated RBCs # 0.0 /100WBC 10/20/21 18:37 Sodium 138 mmol/L (136-145) 10/20/21 18:37 Potassium 4.2 mmol/L (3.5-5.1) 10/20/21 18:37 Chloride 101 mmol/L (98-107) 10/20/21 18:37 Carbon Dioxide 24 mmol/L (22-29) 10/20/21 18:37 Anion Gap 17.2 (5-19) 10/20/21 18:37 BUN 29 mg/dL (8-23) H 10/20/21 18:37 Creatinine 1.1 mg/dL (0.7-1.2) 10/20/21 18:37 GFR Calculation Not Reportable 10/20/21 18:37 Glucose 181 mg/dL (65-115) H 10/20/21 18:37 Calculated Osmolality 296 mOsm/kg (285-295) H 10/20/21 18:37 Lactate 2.7 mmol/L (0.5-2.2) H 10/20/21 18:37 Calcium 9.6 mg/dL (8.5-10.5) 10/20/21 18:37 Total Bilirubin 0.3 mg/dL (0.15-1.2) 10/20/21 18:37 AST 11 U/L (0-40) 10/20/21 18:37 ALT 8 U/L (0-41) 10/20/21 18:37 Alkaline Phosphatase 88 IU/L (40-130) 10/20/21 18:37 Troponin T Baseline 24 ng/L (0-15) H 10/20/21 18:37 C-Reactive Protein 32.9 mg/L (0.0-4.9) H 10/20/21 18:37 Total Protein 6.5 g/dL (6.6-8.7) L 10/20/21 18:37 Albumin 4.0 g/dL (3.5-5.2) 10/20/21 18:37 Globulin 2.5 g/dL (1.3-4.6) 10/20/21 18:37 Lipase 19 U/L (13-60) 10/20/21 18:37 Urine Color Yellow (Yellow) 10/20/21 19:40 Urine Appearance Turbid (CLEAR) 10/20/21 19:40 Urine pH 5 (5-7) 10/20/21 19:40 Ur Specific [place] 1.020 (1.005-1.030) 10/20/21 19:40 Urine Protein Neg (Negative) 10/20/21 19:40 Urine Glucose (UA) Norm (Normal) 10/20/21 19:40 Urine Ketones Negative (Negative) 10/20/21 19:40 Urine Blood Neg (Negative) 10/20/21 19:40 Urine Nitrate Negative (Negative) 10/20/21 19:40 Urine Bilirubin Neg (Negative) 10/20/21 19:40 Urine Urobilinogen Norm mg/dL (Negative) 10/20/21 19:40 Ur Leukocyte Esterase Negative (Negative) 10/20/21 19:40 Urine RBC 0-4 /hpf (0-2) H 10/20/21 19:40 Urine WBC 40-55 /hpf (0-5) H 10/20/21 19:40 Ur Squamous Epith Cells 0-4 /hpf (0-5) H 10/20/21 19:40 Ur Transition Epith Cell 0-4 /hpf 10/20/21 19:40 Amorphous Sediment Not Reportable 10/20/21 19:40 Urine Bacteria 2+ /hpf (NONE) H 10/20/21 19:40 Urine Mucus 4+ /hpf 10/20/21 19:40 Discharge Plan Discharge Patient Disposition: Admitted As Inpatient Condition: Stable Coding Level of Care Code ED Cigarette Packing 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
[2021-10-20 19:12] LABS: Alanine Aminotransferase 8 U/L (0-41); Alkaline Phosphatase 88 IU/L (40-130); Anion Gap 17.2 (5-19); Aspartate Amino Transferase 11 U/L (0-40); Blood Urea Nitrogen 29 mg/dL (8-23); C Reactive Protein 32.9 mg/L (0.0-4.9); Calcium 9.6 mg/dL (8.5-10.5); Carbon Dioxide 24 mmol/L (22-29); Chloride 101 mmol/L (98-107); Globulin 2.5 g/dL (1.3-4.6); Glucose 181 mg/dL (65-115); Lipase 19 U/L (13-60); Osmolality Calculated 296 mOsm/kg (285-295); Potassium 4.2 mmol/L (3.5-5.1); Sodium 138 mmol/L (136-145); Total Bilirubin 0.3 mg/dL (0.15-1.2); Total Protein 6.5 g/dL (6.6-8.7); Troponin(5th) Baseline 24 ng/L (0-15)
[2021-10-20 19:13] LABS: Lactate (Lactic Acid level) 2.7 mmol/L (0.5-2.2)
[2021-10-20 19:20] LABS: Slide Review Slide Review Perform
[2021-10-20 20:00] LABS: Add Urine Microscopic? YES; Bilirubin Urine Neg (Negative); Blood Urine Neg (Negative); Glucose Urine UA Norm (Normal); Ketones Urine Negative (Negative); Leukocyte Esterase Urine Negative (Negative); Nitrate Urine Negative (Negative); Protein Urine Neg (Negative); RBC Urine 0-4 /hpf (0-2); Urine Appearance Turbid (CLEAR); Urine Color Yellow (Yellow); Urobilinogen Urine Norm (Negative); WBC Urine 40-55 /hpf (0-5); pH Urine 5 (5-7)
[2021-10-20 20:01] LABS: Add Urine Culture? Yes; Bacteria Urine 2+ /hpf; Mucus Urine 4+ /hpf; Squamous Epithelial Cell Urine 0-4 /hpf (0-5); Transitional Epi Cells Urine 0-4 /hpf
--- NOTE | 2021-10-20 20:20 | ECG_ITS ---
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 Measurements Intervals [place] Rate: 116 P: 51 MT: 158 QRS: -82 QRSD: 145 T: 63 QT: 347 QTc: 484 Interpretive Statements SINUS TACHYCARDIA RIGHT BUNDLE BRANCH BLOCK [120+ ms QRS DURATION, UPRIGHT V1, 40+ ms S IN I/aVL/V4/V5/V6] LEFT ANTERIOR FASCICULAR BLOCK [QRS AXIS <= -45, QR IN I, RS IN II] POSSIBLE ANTEROSEPTAL MYOCARDIAL INFARCTION , OF INDETERMINATE AGE Compared to ECG 10/20/2021 18:28:42 Left anterior fascicular block now present Short MT interval no longer present Right-axis deviation no longer present Myocardial infarct finding still present Electronically Signed On 10-21-2021 17:43:21 CDT by Arminda Etienne M.D. [id number]
--- NOTE | 2021-10-20 20:23 | PM.HP ---
Providers/Chief Complaint Primary Care Provider: Jovanny Pacheco DO Chief Complaint: N/V History of Present Illness the patient is an 86-year-old male who process with chief Vidal abdominal pain which started approximately 40 hours prior to presenting to the hospital. Indicates it was of sudden onset he localizes it to the bilateral inguinal area. He denies diarrhea, melena, hematochezia. He denies frequent NSAID use. The patient has been experiencing nausea and emesis. He denies fever, rigors, chest pain, dyspnea. Patient has had previous episodes of small bowel obstruction. He has exhibited anorexia due to his nausea and vomiting so he is unable to state whether by mouth intake proves or worsens the pain. He presents for further evaluation Review of Systems General: Reports: 10 or more systems reviewed and unremarkable except in HPI and below Medications/Allergies Home Medications Medication Instructions Recorded Confirmed Last Taken Type ascorbic acid (vitamin C) 500 mg 1,000 mg PO BID tab 08/16/19 10/20/21 10/19/21 History tablet cranberry 400 mg capsule 400 mg PO DAILY 08/16/19 10/20/21 10/19/21 History docusate sodium 100 mg capsule 100 mg PO BID cap 08/16/19 10/20/21 10/19/21 History (Stool Softener) lactobacillus combination no.9 4 4,000 mmu cells PO DAILY 08/16/19 10/20/21 10/19/21 History billion cell capsule (Adult 50 Plus Probiotic) metoprolol tartrate 25 mg tablet 12.5 mg PO DAILY tab 08/16/19 10/20/21 10/19/21 History multivitamin 1 tab PO DAILY 08/16/19 10/20/21 10/19/21 History nitroglycerin 0.4 mg sublingual 0.4 mg SUBLINGUAL Q5M PRN 08/16/19 10/20/21 Unknown History tablet (Nitrostat) famotidine 20 mg tablet 20 mg PO BID 10/26/20 10/20/21 10/19/21 History methenamine hippurate 1 gram tablet 1 g PO BID #60 tab 10/26/20 10/20/21 10/19/21 Rx bimatoprost 0.01 % eye drops 1 drp OPHTHALMIC (EYE) DAILY PRN 12/24/20 10/20/21 Unknown History (Lumigan) ml latanoprost 0.005 % eye drops 1 drp OPHTHALMIC (EYE) DAILY PRN 12/24/20 10/20/21 Unknown History ml clopidogrel 75 mg tablet (Plavix) 75 mg PO DAILY #90 tab 02/18/21 10/20/21 10/19/21 Rx IMMUNE 1 tab PO DAILY 05/23/21 10/20/21 10/19/21 History rosuvastatin 20 mg tablet 20 mg PO DAILY #90 tab 06/03/21 10/20/21 10/19/21 Rx Allergies Allergy/AdvReac Type Severity Reaction Status Date / Time No Known Allergies Allergy Verified 10/14/21 12:44 PFSH Acute PFSH: Medical History CAD (coronary artery disease) Chronic UTI COPD (chronic obstructive pulmonary disease) History of bladder cancer Hyperlipidemia associated with type 2 diabetes mellitus Incomplete bladder emptying Renal failure Surgical History H/O elbow surgery History of urinary diversion procedure Previous back surgery S/P PTCA (percutaneous transluminal coronary angioplasty) Family History Father Stroke Mother CHF (congestive heart failure) Cardiomegaly Family/Other Diabetes Grandmother Diabetes Other CAD (coronary artery disease) Denies family history of Clotting disorder Dementia Chronic kidney disease (CKD) Suicide Anesthesia complication Bleeding disorder Lung disease Cancer Social History Smoking and tobacco status: current every day smoker (1 to 1.5 ppd) cigarettes Alcohol intake: current Alcohol intake frequency: holidays/special occasions only Marital status: Current occupational status: retired History of recent travel: No Vitals/I&O/Wt Last Vital Signs Pulse 110 H 10/20/21 19:40 Resp 20 H 10/20/21 19:40 BP 138/79 10/20/21 19:40 Pulse Ox 93 10/20/21 19:40 10/20/21 10/20/21 10/20/21 06:59 14:59 22:59 Intake Total 1000 / 1000 Balance 1000 / 1000 Weight last 48 hrs Weight 79.379 kg Physical Exam Narrative: General: -Alert -No acute distress -No dyspnea -No tachypnea Head: -Atraumatic -Normocephalic Eyes: -Pupils equally round and reactive to light and accommodation -Extraocular muscles intact Neurological: -Cranial nerves II-XII intact Neck: -No jugular venous distention -No thyromegaly -No cervical lymphadenopathy Heart: -Regular rate -Regular rhythm -No murmurs -No gallops -No rubs Lungs: -No wheeze -No rhonchi -No rales ? Abdomen: -Normal bowel sounds in all four quadrants -No rebound -No guarding -No tenderness Extremities: -2/4 pulse in all four extremities -No clubbing -No cyanosis -No edema -No calf tenderness present bilaterally -Negative Everett?s sign bilaterally Musculoskeletal: -5/5 bilateral upper extremity strength -5/5 bilateral lower extremity strength -Sensorium of bilateral upper extremities are equal and intact -Sensorium of bilateral lower extremities are equal and intact ? Additional Details / Additional Findings / Exceptions / Miscellaneous: Data : 10/20/21 18:37 10/20/21 18:37 A&P Assessment and plan (1) Iron deficiency anemia, unspecified: Status: Acute Plan small bowel obstruction. Nasogastric tube being inserted in the emergency department. Nothing by mouth. IV normal saline at 75 ML's per hour Pneumonia. Is at the mycin 500 Mill grams IV daily plus Rocephin 1 g IV daily History of bladder cancer, status post radical cystectomy with urinary diversion. The patient did not require chemotherapy or radiation therapy. Outpatient follow-up with urology upon discharge as directed History aortic valve stenosis Lakeisha joint disease Elevated troponin. Patient does not provide signs/symptoms of ACS. Will monitor patient on telemetry and checks her cardiac enzymes. Recheck EKG on the morning of October 21, 2021 History of iron deficiency Constipation Glaucoma COPD, not O2 dependent Coronary artery disease, status post cardiac stent, status post Angila Diabetes. Will check fasting glucose every before meals and at bedtime and provide insulin sliding scale GERD Hyperlipidemia Hypertension DT Proflex is. Bilateral SCD Attestations Medical Necessity Statement*: patient's anticipate length of stay is greater than 2 minutes for treatment of a small bowel obstruction Coding Level of Care Code Acute Waiter/Waitress Dining Car for Chg Fwd Diagnoses Iron deficiency anemia, unspecified D50.9
[2021-10-20] MEDS: cetacaine Spray 5 gm Can 1 SPRAY TOPICAL (20:28)
[2021-10-20 20:34] LABS: Troponin 5 2HR 23.68 ng/L (0-15)
[2021-10-20 20:46] LABS: Troponin 5 2HR Delta -0.32 ABS# (0-10)
[2021-10-20] MEDS: lidocaine 4% PF 5 mL INJ INHALATION (20:52)
[2021-10-20] MEDS: midazolam 1 mg/mL INJ 2 mL 2 MG IVP (21:23)
[2021-10-20] MEDS: piperacillin-tazobactam 4.5 GM in sodium chloride 0.9% (plus) 50 ML IV (21:29)
--- NOTE | 2021-10-20 21:54 | XRR_ITS ---
PROCEDURE INFORMATION: Exam: XR Chest Exam date and time: 10/20/2021 10:01 PM Age: 86 years old Clinical indication: Device placement; Ng tube; Prior surgery; Surgery type: Cabg; Additional info: Ng tube placement TECHNIQUE: Imaging protocol: XR of the chest. Views: 1 view. COMPARISON: CT chest abd pel wo con 10/20/2021 6:41 PM FINDINGS: Tubes, catheters and devices: The nasogastric tube is appropriately positioned with the tip in the stomach, well beyond the diaphragmatic hiatus. Lungs: Lungs are clear. Pleural spaces: There is no pleural effusion or pneumothorax. Heart/Mediastinum: Cardiomediastinal contours are unremarkable. Bones/joints: Bones are unremarkable. XR/XR chest 1V portable [id number] IMPRESSION: Satisfactory NG tube position.
[2021-10-20] MEDS: vancomycin 1,000 MG in sodium chloride 0.9% 250 ML 250 MG IV (22:08)
[2021-10-20] MEDS: sodium chloride 0.9% 1,000 ML 75 ML IV (23:44)
[2021-10-21] VITALS (8 sets, daily range): BP systolic 105–125; BP diastolic 65–82; PULSE 90–109; RESP 13–18; TEMP 36.6–37.6; O2SAT 91–95
[2021-10-21 00:10] LABS: Glucose Point of Care 156 mg/dL (70-110)
--- NOTE | 2021-10-21 00:20 | ECG_ITS ---
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 Measurements Intervals [place] Rate: 102 P: 55 MA: 175 QRS: -87 QRSD: 148 T: 66 QT: 355 QTc: 463 Interpretive Statements SINUS TACHYCARDIA RIGHT BUNDLE BRANCH BLOCK [120+ ms QRS DURATION, UPRIGHT V1, 40+ ms S IN I/aVL/V4/V5/V6] LEFT ANTERIOR FASCICULAR BLOCK [QRS AXIS <= -45, QR IN I, RS IN II] Compared to ECG 10/20/2021 23:01:38 Myocardial infarct finding no longer present Electronically Signed On 10-21-2021 17:42:28 CDT by Arminda Etienne M.D. [id number]
[2021-10-21 05:37] LABS: Basophils # 0.1 10^3/uL (0.0-0.1); Basophils % 0.5 %; Eosinophils # 0.1 10^3/uL (0.0-0.8); Eosinophils % 1.1 %; Hematocrit 41.1 % (42.0-52.0); Hemoglobin 13.2 g/dL (11.7-16.6); Lymphocytes # 1.8 10^3/uL (0.8-4.8); Lymphocytes % 14.8 %; Mean Corpuscular HGB Conc 32.1 g/dL (30.0-36.0); Mean Corpuscular Hemoglobin 28.3 pg (28.0-34.0); Mean Platelet Volume 10.8 fL (7.4-10.4); Monocytes # 2.4 10^3/uL (0.2-0.9); Monocytes % 19.4 %; Neutrophils # 7.76 10^3/uL (1.8-7.7); Nucleated Red Blood Cells % 0 %; Platelet Count 262 10^3/cmm (130-400); Red Blood Count 4.67 10^6/uL (4.1-5.3); White Blood Count 12.1 10^3/uL (4.0-10.0)
[2021-10-21 06:31] LABS: Glucose Point of Care 150 mg/dL (70-110)
[2021-10-21] MEDS: azithromycin 500 MG in sodium chloride 0.9% 250 ML 250 MG IV (08:09)
[2021-10-21] MEDS: insulin lispro 100 unit/1 mL SUBCUT (08:20)
[2021-10-21] MEDS: cefTRIAXone 1,000 MG in sodium chloride 0.9% (plus) 50 ML 100 MG IV (10:36)
--- NOTE | 2021-10-21 10:39 | PC.CHAP ---
Pastoral Care Encounter/Spiritual Assessment Type of Contact [] Declined acid splicer visit [] Patient/Family/Request visit [] Outpatient visit [] Follow-up visit [] Physician referral [] Code/Alert [x] Routine visit [] Staff referral [] Actively dying [] Patient sleeping [] Family support [] [] Out of room [] Palliative care [] [] Receiving care in room [] Pre-surgical visit [] Trauma [] Long length of stay [] ICU visit [] Other: Relational/Emotional Strength [x] Patient feels connected with others/family/visitors/staff [] Distress [] Loneliness/isolation [] Abandonment Spirituality of Patient [x] Person of Amisha [] Attends Alevism of their Amisha [x] Believes in Prayer [] Reads Bible or Roman Catholic materials [] There are Spiritual issues to be addressed Prize Fighter Interventions [x] Prayer [x] Active listening [x] Non-anxious presence [] Spiritual/emotional support [] Crisis/trauma care [] Spiritual counseling [] Bereavement support [] Provided bereavement packet [] Provided Bible/devotional materials [] Provided toy/stuffed animal, coloring book to patient or family member [] Provided Communion [] Anointing/[place] [] Salvation [x] Completed spiritual assessment [] Other: Impact on Illness or Injury [] Angry [] Fearful [] Anxious [] Often cries [] Exhaustion [] Unable to work [] Unable to attend holiness [] Unable to walk/stand [] Unable to read [] Unable to drive [] Unable to eat/drink [] Unable to sleep [] Unable to be with family [] Patient intubated [] Other: Summary Time spent with patient 10 min
[2021-10-21] MEDS: phenol oral Spray 177 mL 3 SPRAY MUCOUS MEM (10:41)
[2021-10-21 11:49] LABS: Glucose Point of Care 92 mg/dL (70-110)
--- NOTE | 2021-10-21 11:51 | P.CONIM_ITS ---
Providers/Reason For Consult Consulting Physician/Specialty*: Dr. Brandon Estrada/ General Surgery Reason for Consult*: Abdominal pain, nausea and emesis Attending Physician: Verenice Mueller MD Primary Care Provider: Jovanny Pacheco DO History of Present Illness History of Present Illness Gerardo Pardo is a 86 year old male with a history of mild Alzheimer dementia, who comes in for recurrent small bowel obstruction. He has a history of 1 small bowel obstruction in the past which was resolved with nasogastric tube alone. 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 He takes Plavix for history of [place] and 5 cardiac stents. His 2 daughters are in the room with him. Approximately 2 days ago he began having lower abdominal pain along with nausea and vomiting. He reports that he has not passed flatus over the last day. Denies any bowel movements over the last day also. The pain is dull and constant located suprapubically. The pain is moderate and does not radiate. Palpation makes pain worse nothing makes pain better. He denies any hematochezia melena or hematemesis. Review of Systems General: Reports: 10 or more systems reviewed and unremarkable except in HPI and below Medications/Allergies Home Medications Medication Instructions Recorded Confirmed Last Taken Type ascorbic acid (vitamin C) 500 mg 1,000 mg PO BID tab 08/16/19 10/20/21 10/19/21 History tablet cranberry 400 mg capsule 400 mg PO DAILY 08/16/19 10/20/21 10/19/21 History docusate sodium 100 mg capsule 100 mg PO BID cap 08/16/19 10/20/21 10/19/21 History (Stool Softener) lactobacillus combination no.9 4 4,000 mmu cells PO DAILY 08/16/19 10/20/21 10/19/21 History billion cell capsule (Adult 50 Plus Probiotic) metoprolol tartrate 25 mg tablet 12.5 mg PO DAILY tab 08/16/19 10/20/21 10/19/21 History multivitamin 1 tab PO DAILY 08/16/19 10/20/21 10/19/21 History nitroglycerin 0.4 mg sublingual 0.4 mg SUBLINGUAL Q5M PRN 08/16/19 10/20/21 Unknown History tablet (Nitrostat) famotidine 20 mg tablet 20 mg PO BID 10/26/20 10/20/21 10/19/21 History methenamine hippurate 1 gram tablet 1 g PO BID #60 tab 10/26/20 10/20/21 10/19/21 Rx bimatoprost 0.01 % eye drops 1 drp OPHTHALMIC (EYE) DAILY PRN 12/24/20 10/20/21 Unknown History ([place]) ml latanoprost 0.005 % eye drops 1 drp OPHTHALMIC (EYE) DAILY PRN 12/24/20 10/20/21 Unknown History ml clopidogrel 75 mg tablet (Plavix) 75 mg PO DAILY #90 tab 02/18/21 10/20/21 10/19/21 Rx IMMUNE 1 tab PO DAILY 05/23/21 10/20/21 10/19/21 History rosuvastatin 20 mg tablet 20 mg PO DAILY #90 tab 06/03/21 10/20/21 10/19/21 Rx Allergies Allergy/AdvReac Type Severity Reaction Status Date / Time No Known Allergies Allergy Verified 10/14/21 12:44 Current Medications Generic Name Dose Route Start Last Admin Trade Name Freq PRN Reason Stop Dose Admin Sodium Chloride 1,000 mls @ 75 mls/hr 10/20/21 22:46 10/20/21 23:44 Sodium Chloride 0.9% IV 75 mls/hr .[id number] PAVEL Administration Azithromycin 500 mg/ Sodium 250 mls @ 250 mls/hr 10/21/21 09:00 10/21/21 09:32 Chloride IV Infused DAILY PAVEL Infusion Protocol Ceftriaxone Sodium 1,000 mg/ 50 mls @ 100 mls/hr 10/21/21 10:00 10/21/21 11:1 1 Sodium Chloride IV Infused Q24H PAVEL Infusion Protocol Insulin Human Lispro 0 unit 10/20/21 22:46 10/21/21 08:20 Insulin Lispro 100 Unit/1 Ml SUBCUT 2 unit WM&BEDTIME PAVEL Administration Protocol Phenol 3 spray 10/21/21 09:53 10/21/21 10:41 Phenol Oral [place] 177 Ml MUCOUS MEM 3 spray Q2H PRN Administration SORE THROAT PFSH Acute PFSH: Medical History (Updated 10/21/21 @ 11:55 by Brandon Estrada DO) CAD (coronary artery disease) Chronic UTI COPD (chronic obstructive pulmonary disease) History of bladder cancer History of cardiac arrest Hyperlipidemia associated with type 2 diabetes mellitus Incomplete bladder emptying Renal failure Small bowel obstruction Surgical History (Updated 10/21/21 @ 11:55 by Brandon Estrada DO) H/O elbow surgery History of urinary diversion procedure Hx of transurethral destruction of bladder lesion Previous back surgery S/P PTCA (percutaneous transluminal coronary angioplasty) Family History Father Stroke Mother CHF (congestive heart failure) Cardiomegaly Family/Other Diabetes Grandmother Diabetes Other CAD (coronary artery disease) Denies family history of Clotting disorder Dementia Chronic kidney disease (CKD) Suicide Anesthesia complication Bleeding disorder Lung disease Cancer Social History Smoking and tobacco status: current every day smoker (1 to 1.5 ppd) cigarettes Alcohol intake: current Alcohol intake frequency: holidays/special occasions only Marital status: Current occupational status: retired History of recent travel: No Vitals/I&O/Wt Last Vital Signs Temp 99.6 F 10/21/21 11:07 Pulse 90 10/21/21 11:07 Resp 16 10/21/21 11:07 BP 108/69 10/21/21 11:07 Pulse Ox 92 10/21/21 11:07 10/20/21 10/21/21 10/21/21 22:59 06:59 14:59 Intake Total 1050 / 1050 250 / 1300 300 / 300 Output Total 500 / 500 525 / 525 Balance 1050 / 1050 -250 / 800 -225 / -225 Weight last 48 hrs Weight 175 lb Physical Exam Narrative: General : Patient is well developed , no acute distress, oriented x2 (not to time) Head : Normal cephalic, a-traumatic. Ears : TM's are without erythema or bulging, Pinnae and external canal are normal. Hearing is normal. Eyes : PERRLA, Sclera and injection are normal. No conjunctival discharge. Nose : Mucous membranes are without erythema. Throat : buccal mucosa is normal, gums are without significant recession or hypertrophy. Lungs : Equal chest rise bilaterally, no use of accessory muscles, trachea is midline. Cor : Rate and rhythm are normal. Abdomen : Soft, mild distension, mild tenderness to palpation suprapubically, no g/r/m Extremities : No edema, no cyanosis or clubbing, dorsalis pedis pulses are present bilaterally, non-tender to palpation of calves. Upper extremities are normal bilaterally. Back : non-tender to palpation, no CVA tenderness. Neuro : CN II - XII intact, Upper and lower extremities have equal and full strength Data : 10/21/21 05:27 10/20/21 18:37 A&P Assessment and plan (1) History of urinary diversion procedure: Status: Acute (2) CAD (coronary artery disease): Status: Acute Qualifiers: Coronary Disease-Associated Artery/Lesion type: [place] artery [place] vs. transplanted heart: [place] heart Associated angina: without angina Qualified Code(s): I25.10 - Atherosclerotic heart disease of [place] coronary artery without angina pectoris (3) Small bowel obstruction: Status: Acute Plan IVF NPO/NGT to LIWS May have small amount of ice chips May clamp NGT and ambulate in halls for 30 min at a time Aggressive electrolyte replacement Medical management per hospitalist If his bowels do not open up in the next few days or so, we will have to discuss surgery No acute surgical intervention. Thank you for this consultation Coding Level of Care Code Acute Lead Data Entry Operator for [facility] Diagnoses History of urinary diversion procedure Z98.890 CAD (coronary artery disease) I25.10 Coronary Disease-Associated Artery/Lesion type: [place] artery [place] vs. transplanted heart: [place] heart Associated angina: without angina Small bowel obstruction K56.609
[2021-10-21] MEDS: sodium chloride 0.9% 1,000 ML 75 ML IV (13:28)
--- NOTE | 2021-10-21 14:49 | P.PN_ITS ---
Subjective Subjective: Patient was endorsing feeling better today, appreciate general surgery recommendations I have discontinued azithromycin, chest x-ray did not show any signs of pneumonia, continue ceftriaxone for now This morning when entered the room, suction was not hooked up with the container, I reapplied the suction to the container, is still showing active drainage of bile and is NG tube However patient is stating that he is much better as compared to yesterday, feculent material versus blood in the container, will request gastric occult blood test Change fluids to D5 LR discontinue high-rate normal saline KUB in the morning Vitals/I&O/Wt Last Vital Signs Temp 99.6 F 10/21/21 11:07 Pulse 90 10/21/21 11:07 Resp 16 10/21/21 11:07 BP 108/69 10/21/21 11:07 Pulse Ox 92 10/21/21 11:07 10/20/21 10/21/21 10/21/21 22:59 06:59 14:59 Intake Total 1050 / 1050 250 / 1300 1300 / 1300 Output Total 500 / 500 725 / 725 Balance 1050 / 1050 -250 / 800 575 / 575 Weight last 48 hrs Weight 79.379 kg Physical Exam Narrative: Patient is in right lateral position He is endorsing feeling much better Daughter is at the bedside In total he has had only 5 episode of emesis Abdomen soft No active signs of edema of legs Patient does look dehydrated He is awake and alert Able to answer my questions appropriately No signs of stroke Nonfocal neuro exam Left eye chemosis No active shortness of breath, oxygen is not in his nose, no active signs of respiratory distress No audible stridor or wheezing Systolic murmur with S1-S2 Data : 10/21/21 05:27 10/20/21 18:37 A&P Assessment and plan (1) Small bowel obstruction: Status: Acute (2) Iron deficiency anemia, unspecified: Status: Acute (3) Polymyalgia: Status: Acute (4) Aortic valve stenosis: Status: Acute Qualifiers: Cardiac valve disease etiology: nonrheumatic Qualified Code(s): I35.0 - Nonrheumatic aortic (valve) stenosis (5) History of bladder cancer: Status: Acute (6) History of urinary diversion procedure: Status: Acute Plan Small bowel obstruction Second episode, previous episode was few years ago No active signs of peritonitis guarding or rigidity NG tube Bilious content NG to suction Appreciate general surgery recommendations N.p.o. Okay with ice chips NG tube to be clamped as per general surgery recommendations We will check for gastric occult blood Change IV fluids to D5 LR Conservative management for now in case of no bowel movement or passage of gas and extremity 2 hours might consider surgery Aspiration pneumonitis, discontinue azithromycin, continue ceftriaxone for now, I do not see any signs of active consolidation on the x-ray though He is afebrile No requiring oxygen History of bladder cancer outpatient follow-up Ideations anemia without acute worsening COPD without acute exacerbation Diabetes: I am adding D5 LR, check blood sugar every 8 hours Bilateral SCDs Aortic valve stenosis without acute exacerbation History of coronary disease as well no active chest pain Attestations Medical Necessity Statement*: Continue medical management Time Spent in Patient Care: 30mins Coding Level of Care Code Acute [employer] Systems Safety Engineer for [facility] F[facility] Diagnoses Small bowel obstruction K56.609 Iron deficiency anemia, unspecified D50.9 Polymyalgia M35.3 Aortic valve stenosis I35.0 Cardiac valve disease etiology: nonrheumatic History of bladder cancer Z85.51 History of urinary diversion procedure Z98.890
[2021-10-21] MEDS: dextrose 5%-lactated ringers 1,000 ML 75 ML IV (15:20)
[2021-10-21] MEDS: famotidine 20 mg Tablet PO (22:03)
[2021-10-21] MEDS: nicotine 14 mg Patch 1 PATCH TRANSDERMA (22:03)
[2021-10-21 23:22] LABS: Glucose Point of Care 121 mg/dL (70-110)
[2021-10-22] VITALS (8 sets, daily range): BP systolic 109–138; BP diastolic 60–82; PULSE 82–98; RESP 16–24; TEMP 36.6–37.2; O2SAT 91–96
[2021-10-22] MEDS: dextrose 5%-lactated ringers 1,000 ML 75 ML IV (04:00)
[2021-10-22 05:17] LABS: Basophils # 0.1 10^3/uL (0.0-0.1); Basophils % 0.5 %; Eosinophils # 0.3 10^3/uL (0.0-0.8); Eosinophils % 2.9 %; Hematocrit 41.1 % (42.0-52.0); Hemoglobin 12.5 g/dL (11.7-16.6); Lymphocytes # 1.9 10^3/uL (0.8-4.8); Mean Corpuscular HGB Conc 30.4 g/dL (30.0-36.0); Mean Corpuscular Hemoglobin 27.6 pg (28.0-34.0); Mean Corpuscular Volume 90.7 fl (80-94); Mean Platelet Volume 11.3 fL (7.4-10.4); Monocytes # 1.9 10^3/uL (0.2-0.9); Neutrophils # 5.72 10^3/uL (1.8-7.7); Neutrophils % 58.3 %; Nucleated Red Blood Cells % 0 %; Platelet Count 259 10^3/cmm (130-400); Red Blood Count 4.53 10^6/uL (4.1-5.3); Red Cell Distribution Width 20.3 % (12.1-15.1); White Blood Count 9.8 10^3/uL (4.0-10.0)
[2021-10-22 05:41] LABS: Anion Gap 13.8 (5-19); Blood Urea Nitrogen 18 mg/dL (8-23); Calcium 8.7 mg/dL (8.5-10.5); Carbon Dioxide 23 mmol/L (22-29); Chloride 105 mmol/L (98-107); Glucose 124 mg/dL (65-115); Osmolality Calculated 289 mOsm/kg (285-295); Potassium 3.8 mmol/L (3.5-5.1); Sodium 138 mmol/L (136-145)
--- NOTE | 2021-10-22 06:00 | XRR_ITS ---
PROCEDURE INFORMATION: Exam: XR Abdomen Exam date and time: 10/22/2021 5:36 AM Age: 86 years old Clinical indication: Condition or disease; Intestinal condition; Obstruction; Additional info: Sbo TECHNIQUE: Imaging protocol: XR of the abdomen. Views: Frontal supine view of the abdomen. 1 View. Total images: 1 COMPARISON: CT chest abd pel wo con 10/20/2021 6:41 PM FINDINGS: Tubes, catheters and devices: Extensive surgical clips along the pelvic fenton unchanged. Gastrointestinal tract: Distended small bowel loops seen in the mid and left upper abdomen with colonic air present. Small bowel distension appears similar to prior exam. Bones/joints: Unremarkable. XR/XR KUB portable [id number] IMPRESSION: Distended small bowel loops seen in the mid and left upper abdomen with colonic air present. Small bowel distension appears similar to prior exam. Radiographic surveillance is recommended to document resolution.
[2021-10-22 07:41] LABS: Glucose Point of Care 141 mg/dL (70-110)
--- NOTE | 2021-10-22 09:37 | PM.PN ---
Subjective Subjective: Patient Seen and Examined. Denies N/V. Passing flatus and having BM's. HR has been 90's-100's Vitals/I&O/Wt Last Vital Signs Temp 98.4 F 10/22/21 07:46 Pulse 90 10/22/21 07:46 Resp 16 10/22/21 07:46 BP 110/71 10/22/21 07:46 Pulse Ox 94 10/22/21 07:46 10/21/21 10/22/21 10/22/21 22:59 06:59 14:59 Intake Total 240 / 2540 1110 / 3650 1480 / 1480 Balance 240 / 1815 1110 / 2925 1480 / 1480 Weight last 48 hrs Weight 175 lb Physical Exam Narrative: Gen: NAD, AAOx3 Abd: S, moderately distended, nonterner, no g/r/m Data : 10/22/21 04:35 10/22/21 04:35 Micro: Microbiology 10/20/21 19:40 Urine Culture - Preliminary Urine,Clean Catch Gram Negative Rods A&P Assessment and plan (1) History of urinary diversion procedure: Status: Acute (2) CAD (coronary artery disease): Status: Acute Qualifiers: Coronary Disease-Associated Artery/Lesion type: [place] artery [place] vs. transplanted heart: [place] heart Associated angina: without angina Qualified Code(s): I25.10 - Atherosclerotic heart disease of [place] coronary artery without angina pectoris (3) Small bowel obstruction: Status: Acute Plan Continue NS at 125cc/hr Aggressive electrolyte replacement Full liquid diet Plan for soft diet and discharge home tomorrow Medical management per hospitalist No acute surgical intervention. Attestations Medical Necessity Statement*: Patient requires further IVF therapy and diet management Coding Level of Care Code Acute Chairman & Ceo for [facility] Fwd Diagnoses History of urinary diversion procedure Z98.890 CAD (coronary artery disease) I25.10 Coronary Disease-Associated Artery/Lesion type: [place] artery [place] vs. transplanted heart: [place] heart Associated angina: without angina Small bowel obstruction K56.609
[2021-10-22] MEDS: famotidine 20 mg Tablet PO ×2 (09:45→18:24)
[2021-10-22 11:42] LABS: Glucose Point of Care 132 mg/dL (70-110)
--- NOTE | 2021-10-22 11:52 | P.PN_ITS ---
Subjective Subjective: 4-5 bowel movement yesterday, abdomen is soft, patient is eager to return home, he was tachycardic last night, daughter was concerned about hypoxia however this morning he is on room air, saturating well I will request normal saline at 100 mL/h, pulse oximetry study overnight Plan to discharge him tomorrow advance diet to GI soft Vitals/I&O/Wt Last Vital Signs Temp 97.9 F 10/22/21 11:43 Pulse 82 10/22/21 11:43 Resp 18 10/22/21 11:43 BP 134/82 10/22/21 11:43 Pulse Ox 93 10/22/21 11:43 10/21/21 10/22/21 10/22/21 22:59 06:59 14:59 Intake Total 240 / 2540 1110 / 3650 1480 / 1480 Balance 240 / 1815 1110 / 2925 1480 / 1480 Weight last 48 hrs Weight 79.379 kg Physical Exam Narrative: Patient was standing by the sink Is much more energetic today as compared to yesterday Is able to walk down the halls Does not look severely dehydrated S1, S2 No audible stridor or wheezing EOMI, PERRLA Nonfocal neuro exam Appropriate mood and affect Data : 10/22/21 04:35 10/22/21 04:35 Micro: Microbiology 10/20/21 19:40 Urine Culture - Preliminary Urine,Clean Catch Gram Negative Rods A&P Assessment and plan (1) Small bowel obstruction: Status: Acute (2) Aortic valve stenosis: Status: Acute Qualifiers: Cardiac valve disease etiology: nonrheumatic Qualified Code(s): I35.0 - Nonrheumatic aortic (valve) stenosis (3) Chronic UTI: Status: Acute (4) History of bladder cancer: Status: Acute (5) History of urinary diversion procedure: Status: Acute (6) Benign essential HTN: Status: Acute Plan SBO 4-5 bowel movements Advance diet to GI soft Keep normal saline patient is responsive to IV fluid hydration Sinus tachycardia improved with IV fluids Appreciate general surgery recommendations Repeat KUB tomorrow morning Pulse oximetry study overnight Will do home O2 evaluation before discharge Blood sugar 132 KUB reviewed Patient is full code Potassium 3.8 we will give 20 mEq KCl, check magnesium level Plan to discharge him home tomorrow Attestations Medical Necessity Statement*: Discharge home tomorrow Time Spent in Patient Care: 30mins Coding Level of Care Code Acute Transport Analyst for Chg Fwd Diagnoses Small bowel obstruction K56.609 Aortic valve stenosis I35.0 Cardiac valve disease etiology: nonrheumatic Chronic UTI N39.0 History of bladder cancer Z85.51 History of urinary diversion procedure Z98.890 Benign essential HTN I10
[2021-10-22] MEDS: metoprolol tartrate 25 mg Tablet 12.5 MG PO (12:51)
[2021-10-22] MEDS: potassium chloride oral liq 20 mEq/15 mL UDC 40 MEQ PO (12:51)
[2021-10-22] MEDS: sodium chloride 0.9% 1,000 ML 125 ML IV ×2 (12:52→20:21)
[2021-10-22] MEDS: nicotine 14 mg Patch 1 PATCH TRANSDERMA (16:03)
[2021-10-22 16:47] LABS: Glucose Point of Care 121 mg/dL (70-110)
[2021-10-22 20:36] LABS: Glucose Point of Care 149 mg/dL (70-110)
[2021-10-23] VITALS (10 sets, daily range): BP systolic 110–144; BP diastolic 63–80; PULSE 87–98; RESP 16–22; TEMP 36.6–36.9; O2SAT 87–95
[2021-10-23] MEDS: sodium chloride 0.9% 1,000 ML 125 ML IV (03:13)
--- NOTE | 2021-10-23 04:00 | XR_ITS ---
WS: [id number] KUB, AP supine portable, 10/23/2021 Clinical Data: SBO Comparison: KUB, 10/22/2021. Findings: There are still dilated small bowel loops in the upper abdomen. There is colon gas. There are surgica l clips on both sides of the true pelvis. XR/XR KUB portable [id number] Impression: No change in dilated small bowel loops.
[2021-10-23 06:38] LABS: Glucose Point of Care 96 mg/dL (70-110)
[2021-10-23 07:32] LABS: Anion Gap 12.2 (5-19); Blood Urea Nitrogen 9 mg/dL (8-23); Calcium 8.1 mg/dL (8.5-10.5); Carbon Dioxide 25 mmol/L (22-29); Chloride 108 mmol/L (98-107); Glucose 107 mg/dL (65-115); Magnesium 1.6 mg/dL (1.7-2.3); Osmolality Calculated 291 mOsm/kg (285-295); Potassium 4.2 mmol/L (3.5-5.1); Sodium 141 mmol/L (136-145)
[2021-10-23] MEDS: famotidine 20 mg Tablet PO ×2 (09:17→18:11)
--- NOTE | 2021-10-23 10:31 | PM.PN ---
Subjective Subjective: Patient Seen and Examined. Denies N/V. Passing flatus and having multiple BM's. HR normalized. He had periods of low O2 and is now on lasix. Vitals/I&O/Wt Last Vital Signs Temp 98.3 F 10/23/21 07:19 Pulse 87 10/23/21 07:19 Resp 16 10/23/21 07:19 BP 116/69 10/23/21 07:19 Pulse Ox 92 10/23/21 07:19 10/22/21 10/23/21 10/23/21 22:59 06:59 14:59 Intake Total 935.417 / 2655.417 858.333 / 3513.750 240 / 240 Balance 935.417 / 2655.417 858.333 / 3513.750 240 / 240 Physical Exam Narrative: Gen: NAD, AAOx3 Abd: S, nondistended, nontender, no g/r/m Data : 10/22/21 04:35 10/23/21 06:47 Micro: Microbiology 10/20/21 19:40 Urine Culture - Preliminary Urine,Clean Catch Gram Negative Rods A&P Assessment and plan (1) History of urinary diversion procedure: Status: Acute (2) CAD (coronary artery disease): Status: Acute Qualifiers: Coronary Disease-Associated Artery/Lesion type: [place] artery [place] vs. transplanted heart: [place] heart Associated angina: without angina Qualified Code(s): I25.10 - Atherosclerotic heart disease of [place] coronary artery without angina pectoris (3) Small bowel obstruction: Status: Acute Plan saline lock Aggressive electrolyte replacement Soft diet Medical management per hospitalist Surgically stable for discharge No acute surgical intervention. Attestations Medical Necessity Statement*: patient receiving IV lasix Coding Level of Care Code Acute Corporate Coordinator for [facility] Fwd Diagnoses History of urinary diversion procedure Z98.890 CAD (coronary artery disease) I25.10 Coronary Disease-Associated Artery/Lesion type: [place] artery [place] vs. transplanted heart: [place] heart Associated angina: without angina Small bowel obstruction K56.609
--- NOTE | 2021-10-23 10:40 | PC.SOCIAL ---
IMM update IMM updated with patient and son at bedside. Copy Pg 2 provided. Verbalized an understanding. Initialled, dated, timed, and placed in chart.
--- NOTE | 2021-10-23 10:49 | PM.PN ---
Subjective Subjective: This morning patient was eager to return home however noticed wheezing We will give him Lasix, steroids, DuoNeb treatment We will give him outpatient referral for sleep study he was hypoxic overnight Did not qualify for oxygen with home O2 eval Tachycardia has improved with initiation of metoprolol, discontinue IV fluids because of wheezing Vitals/I&O/Wt Last Vital Signs Temp 98.3 F 10/23/21 07:19 Pulse 87 10/23/21 07:19 Resp 16 10/23/21 07:19 BP 116/69 10/23/21 07:19 Pulse Ox 92 10/23/21 07:19 10/22/21 10/23/21 10/23/21 22:59 06:59 14:59 Intake Total 935.417 / 2655.417 858.333 / 3513.750 292 / 292 Balance 935.417 / 2655.417 858.333 / 3513.750 292 / 292 Physical Exam Narrative: Patient was walking in the room I noticed diffuse expiratory mild wheezing No use of respiratory sensory muscles Saturating well on room air No active chest pain Abdomen soft however distended Bowel sound present No signs of edema He does not look dehydrated Awake and alert Pleasant to communicate Cooperative Son at the bedside Data : 10/22/21 04:35 10/23/21 06:47 Micro: Microbiology 10/20/21 19:40 Urine Culture - Preliminary Urine,Clean Catch Gram Negative Rods A&P Assessment and plan (1) Small bowel obstruction: Status: Acute (2) Diffuse wheezing: Status: Acute (3) Smoker: Status: Acute Plan SBO Patient has had 4-5 bowel movements Is tolerating GI soft diet I have turned off his fluids today because now he started wheezing He is able to tolerate his diet No active emesis Abdomen is soft however slightly distended KUB has not shown significant improvement We will give him a dose of milk of magnesia Wheezing Patient is an active smoker We will give him Lasix 1 dose, steroids, DuoNeb regimen Sinus tachycardia resolved after initiation of metoprolol and IV fluid hydration Patient has sleep apnea, overnight pulse oximetry study showed hypoxic spells however he did not qualify for oxygen with home O2 eval will need outpatient sleep study referral DVT prophylaxis SCDs Full code Attestations Medical Necessity Statement*: He will be discharged home discharge tomorrow Time Spent in Patient Care: 30mins Coding Level of Care Code Acute Account Support Specialist for Chg Fwd Diagnoses Small bowel obstruction K56.609 Diffuse wheezing R06.2 Smoker F17.200
[2021-10-23] MEDS: FUROsemide 10 mg/mL SDV 2mL 20 MG IVP (11:07)
[2021-10-23] MEDS: magnesium hydroxide 30 mL UDC 15 ML PO (11:07)
[2021-10-23] MEDS: ipratropium-albuterol 3 mL Neb INHALATION (11:45)
[2021-10-23 18:18] LABS: Glucose Point of Care 315 mg/dL (70-110)
[2021-10-23 21:11] LABS: Glucose Point of Care 281 mg/dL (70-110)
[2021-10-24] VITALS: BP 112/63; PULSE 88; RESP 19; O2SAT 87
[2021-10-24 04:00] VITALS: BP 108/61; PULSE 76; RESP 24; TEMP 36.6; O2SAT 95
--- NOTE | 2021-10-24 04:00 | XR_ITS ---
WS: [id number] KUB, AP view, 10/24/2021 Clinical Data: SBO Comparison: KUB, 10/23/2021 Findings: The dilated small bowel loops have diminished in size. There is air in the colon. The surgical clips on both sides of the pelvis are noted. XR/XR KUB portable [id number] Impression: Decrease in small bowel dilatation which probably represents an improvement and resolution of small bowel obstruction.
[2021-10-24 05:40] LABS: Magnesium 1.9 mg/dL (1.7-2.3)
[2021-10-24 06:28] LABS: Glucose Point of Care 158 mg/dL (70-110)
[2021-10-24 07:09] VITALS: BP 123/81; PULSE 87; RESP 18; TEMP 36.7; O2SAT 96
[2021-10-24 07:42] VITALS: PULSE 87; RESP 16; O2SAT 97
[2021-10-24] MEDS: metoprolol tartrate 25 mg Tablet 12.5 MG PO (08:12)
[2021-10-24] MEDS: famotidine 20 mg Tablet PO (08:12)
[2021-10-24] MEDS: ipratropium-albuterol 3 mL Neb INHALATION (08:44)
--- NOTE | 2021-10-24 09:59 | P.DS_ITS ---
Discharge Providers Date of Admission: 10/20/21 21:02 Date of Discharge: October 24, 2021 Attending Provider at Admission: Carey Cast DO Attending Provider at Discharge: Verenice Mueller MD Primary Care Provider: Jovanny Pacheco DO Diagnoses at Discharge Discharge Diagnosis (1) Small bowel obstruction: Status: Acute (2) Diffuse wheezing: Status: Acute (3) Smoker: Status: Acute Reason for Visit Reason for Visit: N/V Hospital Course Hospital Course 86-year-old male who was admitted for management and evaluation of small bowel obstruction. His pelvis option improved with conservative management with NG to low intermittent suction. NG tube was removed within 48 hours, he was able to tolerate his diet, he has had 5-7 bowel movements during his hospitalization. He was hydrated with IV fluids aggressively. At the end he started wheezing and required IV steroids, 1 dose of Lasix and albuterol. He is an active smoker does not want to quit. I will prescribe him albuterol at the time of discharge. His tachycardia improved with IV fluid hydration. General surgery agreed with conservative management. Patient will be discharged home, he would qualify for sleep study, noticed hypoxia at night during sleep, he did not qualify for oxygen with home O2 eval, Physical Exam Narrative: Patient in good mood, supine in his bed Wheezing has improved No use of respiratory sensory muscles Saturating well on room air No active chest pain Abdomen soft Bowel sound present No signs of edema He does not look dehydrated Awake and alert Pleasant to communicate Cooperative Son at the bedside ? Discharge Data Studies Completed and Pending Completed Studies During Hospitalization Category Date Time Status CT chest abd pel wo con Urgent Cat Scan 10/20/21 18:18 Completed XR KUB portable 94201 Routine Exams 10/22/21 06:00 Completed XR KUB portable [id number] Routine Exams 10/23/21 04:00 Completed XR KUB portable [id number] Routine Exams 10/24/21 04:00 Completed XR chest 1V portable [id number] Routine Exams 10/20/21 21:54 Completed Radiology Impressions Chest/Abdomen/Pelvis CT 10/20/21 18:18 IMPRESSION: Mild patchy opacities in the right upper and middle lobes suggest infection. IMPRESSION: 1. Distal small bowel obstruction at the level of an ileo-ileal anastomosis. 2. Incidental findings above. COMMENTS: Consistent with the [employer]'s Incidental Findings Committee white paper (J Am Betty Radiol 2018): Any incidental renal lesion less than 1 cm or classified as too small to characterize, or any incidental cystic renal lesion characterized as simple-appearing, is likely benign. No follow-up imaging is recommended for these lesions per consensus recommendations based on imaging criteria. ADDENDUM: 10/20/212005 THIS REPORT CONTAINS FINDINGS THAT MAY BE CRITICAL TO PATIENT CARE. The findings were verbally communicated via telephone conference with WANDY MCNEIL at 8:05 PM CDT on 10/20/2021. The findings were acknowledged and understood. Chest X-Ray 10/20/21 21:54 IMPRESSION: Satisfactory NG tube position. KUB X-Ray 10/24/21 04:00 Impression: Decrease in small bowel dilatation which probably represents an improvement and resolution of small bowel obstruction. Laboratory Results WBC 9.8 10^3/uL (4.0-10.0) 10/22/21 04:35 RBC 4.53 10^6/uL (4.1-5.3) 10/22/21 04:35 Hgb 12.5 g/dL (11.7-16.6) 10/22/21 04:35 Hct 41.1 % (42.0-52.0) L 10/22/21 04:35 MCV 90.7 fl (80-94) 10/22/21 04:35 MCH 27.6 pg (28.0-34.0) L 10/22/21 04:35 MCHC 30.4 g/dL (30.0-36.0) D 10/22/21 04:35 RDW 20.3 % (12.1-15.1) H 10/22/21 04:35 Plt Count 259 10^3/cmm (130-400) 10/22/21 04:35 MPV 11.3 fL (7.4-10.4) H 10/22/21 04:35 Neut % (Auto) 58.3 % 10/22/21 04:35 Lymph % (Auto) 19.0 % 10/22/21 04:35 [place] % (Auto) 19.0 % 10/22/21 04:35 Eos % (Auto) 2.9 % 10/22/21 04:35 Baso % (Auto) 0.5 % 10/22/21 04:35 Neut # (Auto) 5.72 10^3/uL (1.8-7.7) 10/22/21 04:35 Lymph # (Auto) 1.9 10^3/uL (0.8-4.8) 10/22/21 04:35 [place] # (Auto) 1.9 10^3/uL (0.2-0.9) H 10/22/21 04:35 Eos # (Auto) 0.3 10^3/uL (0.0-0.8) 10/22/21 04:35 Baso # (Auto) 0.1 10^3/uL (0.0-0.1) 10/22/21 04:35 Nucleated RBC % (auto) 0 % 10/22/21 04:35 Nucleated RBCs # 0.0 /100WBC 10/22/21 04:35 Sodium 141 mmol/L (136-145) 10/23/21 06:47 Potassium 4.2 mmol/L (3.5-5.1) 10/23/21 06:47 Chloride 108 mmol/L (98-107) H 10/23/21 06:47 Carbon Dioxide 25 mmol/L (22-29) 10/23/21 06:47 Anion Gap 12.2 (5-19) 10/23/21 06:47 BUN 9 mg/dL (8-23) 10/23/21 06:47 Creatinine 0.7 mg/dL (0.7-1.2) 10/23/21 06:47 GFR Calculation Not Reportable 10/23/21 06:47 Glucose 107 mg/dL (65-115) 10/23/21 06:47 POC Glucose 158 mg/dL (70-110) H 10/24/21 06:13 Calculated Osmolality 291 mOsm/kg (285-295) 10/23/21 06:47 Lactate 2.7 mmol/L (0.5-2.2) H 10/20/21 18:37 Calcium 8.1 mg/dL (8.5-10.5) L 10/23/21 06:47 Magnesium 1.9 mg/dL (1.7-2.3) 10/24/21 04:39 Total Bilirubin 0.3 mg/dL (0.15-1.2) 10/20/21 18:37 AST 11 U/L (0-40) 10/20/21 18:37 ALT 8 U/L (0-41) 10/20/21 18:37 Alkaline Phosphatase 88 IU/L (40-130) 10/20/21 18:37 Troponin T Baseline 24 ng/L (0-15) H 10/20/21 18:37 Troponin T 120 Minute 23.68 ng/L (0-15) H 10/20/21 20:04 Delta Troponin T -0.32 ABS# (0-10) L 10/20/21 20:04 Troponin T Hi Sens 6Hr 28.50 ng/L (0-15) H 10/21/21 00:40 Troponin T Hi Sens 6Hr Delta 4.50 ng/L (0-12) 10/21/21 00:40 C-Reactive Protein 32.9 mg/L (0.0-4.9) H 10/20/21 18:37 Total Protein 6.5 g/dL (6.6-8.7) L 10/20/21 18:37 Albumin 4.0 g/dL (3.5-5.2) 10/20/21 18:37 Globulin 2.5 g/dL (1.3-4.6) 10/20/21 18:37 Lipase 19 U/L (13-60) 10/20/21 18:37 Urine Color Yellow (Yellow) 10/20/21 19:40 Urine Appearance Turbid (CLEAR) 10/20/21 19:40 Urine pH 5 (5-7) 10/20/21 19:40 Ur Specific [place] 1.020 (1.005-1.030) 10/20/21 19:40 Urine Protein Neg (Negative) 10/20/21 19:40 Urine Glucose (UA) Norm (Normal) 10/20/21 19:40 Urine Ketones Negative (Negative) 10/20/21 19:40 Urine Blood Neg (Negative) 10/20/21 19:40 Urine Nitrate Negative (Negative) 10/20/21 19:40 Urine Bilirubin Neg (Negative) 10/20/21 19:40 Urine Urobilinogen Norm mg/dL (Negative) 10/20/21 19:40 Ur Leukocyte Esterase Negative (Negative) 10/20/21 19:40 Urine RBC 0-4 /hpf (0-2) H 10/20/21 19:40 Urine WBC 40-55 /hpf (0-5) H 10/20/21 19:40 Ur Squamous Epith Cells 0-4 /hpf (0-5) H 10/20/21 19:40 Ur Transition Epith Cell 0-4 /hpf 10/20/21 19:40 Amorphous Sediment Not Reportable 10/20/21 19:40 Urine Bacteria 2+ /hpf (NONE) H 10/20/21 19:40 Urine Mucus 4+ /hpf 10/20/21 19:40 Vitals Last Vital Signs Temp 98.1 F 10/24/21 07:09 Pulse 87 10/24/21 07:42 Resp 16 10/24/21 07:42 BP 123/81 10/24/21 07:09 Pulse Ox 97 10/24/21 07:42 Discharge Plan Discharge Patient Disposition: Home Condition: Stable Prescriptions: New albuterol sulfate 90 mcg/actuation HFA aerosol inhaler 2 inh inhalation Q8H PRN (Reason: shortness of breath or wheezing) Qty: 8.5 2RF Continued famotidine 20 mg tablet 20 mg PO BID 0RF methenamine hippurate 1 gram tablet 1 g PO BID Qty: 60 12RF Rx Instructions: Take 1000 mg of vitamin C with each dose of methenamine latanoprost 0.005 % drops 1 drp ophthalmic (eye) DAILY PRN (Reason: Eye Irritation) 0RF Lumigan 0.01 % drops 1 drp ophthalmic (eye) DAILY PRN (Reason: Eye Irritation) 0RF cranberry 400 mg capsule 400 mg PO DAILY 0RF multivitamin Tablet 1 tab PO DAILY 0RF Adult 50 Plus Probiotic 4 billion cell capsule 4,000 mmu cells PO DAILY 0RF nitroglycerin [Nitrostat] 0.4 mg tablet, sublingual 0.4 mg SUBLINGUAL Q5M PRN (Reason: chest pain) 0RF metoprolol tartrate 25 mg tablet 12.5 mg PO DAILY 0RF ascorbic acid (vitamin C) 500 mg tablet 1,000 mg PO BID 0RF docusate sodium [Stool Softener] 100 mg capsule 100 mg PO BID 0RF IMMUNE 1 tab PO DAILY 0RF clopidogrel [Plavix] 75 mg tablet 75 mg PO DAILY Qty: 90 3RF rosuvastatin 20 mg tablet 20 mg PO DAILY Qty: 90 3RF Discharge Orders: Discharge Order (Routine); Ordered 10/24/21 Ordered By: Verenice Mueller Other Ambulatory Orders: Sleep Study/Titration (Routine) Timeframe: 1 Week Facility: [facility] - Location: [facility] Ordered By: Verenice Mueller Referrals: [facility] [Outside] Jovanny Pacheco DO [Primary Care Provider] - 4-7 days Discharge Diet: GI Soft Discharge Activity: Increase activity as tolerated Patient Instructions: Opioid Safety Discharge Attestations Time Spent in Discharge Care*: less than 30 min Quality Metrics Clinical Quality Measures [ No reported AMI, CVA or VTE this stay] Coding Level of Care Code Acute Chg FW DC note Diagnoses Small bowel obstruction K56.609 Diffuse wheezing R06.2 Smoker F17.200
[2021-10-24 11:09] VITALS: BP 121/71; PULSE 81; RESP 18; TEMP 36.7; O2SAT 96
--- NOTE | 2021-10-24 11:14 | PC.NURSE ---
DISCHARGE PAPERWORK GONE OVER WITH PT. ALL QUESTIONS ANSWERED. THE IMPORTANCE OF GETTING THE SLEEP STUDY DONE IN ONE WEEK WAS DISCUSSED WITH PT. IV REMOVED. PT TOLERATED WELL. CATHETER TIP INTACT. PT REQUESTED TO WALK OUT OF THE HOSPITAL WITH HIS FAMILY MEMBER. SO PT SAFELY AMBULATED OFF OF THE FLOOR TO THE VEHICLE.
[2021-10-24 11:16] VITALS: BP 121/71; PULSE 81; RESP 18; TEMP 36.7; O2SAT 96
== END 2021-10-24 10:30 | disposition home health service (06) | DRG 389 ==
LOC: ER 20:36 → MEDSURG 21:03
PROVIDERS: Admitting Provider Internal Medicine; Emergency Provider Emergency Medicine; PCP Family Medicine; Visit Provider Internal Medicine
DX: K56.609 Unspecified intestinal obstruction, unspecified as to partial versus complete obstruction (principal); N39.0 Urinary tract infection, site not specified; F17.210 Nicotine dependence, cigarettes, uncomplicated; I25.10 Atherosclerotic heart disease of native coronary artery without angina pectoris; Z95.5 Presence of coronary angioplasty implant and graft; J44.9 Chronic obstructive pulmonary disease, unspecified; Z85.51 Personal history of malignant neoplasm of bladder; E78.5 Hyperlipidemia, unspecified; E11.9 Type 2 diabetes mellitus without complications; D50.9 Iron deficiency anemia, unspecified; I35.0 Nonrheumatic aortic (valve) stenosis; K59.00 Constipation, unspecified; H40.9 Unspecified glaucoma; G30.9 Alzheimer's disease, unspecified; F02.80 Dementia in other diseases classified elsewhere, unspecified severity, without behavioral disturbance, psychotic disturbance, mood disturbance, and anxiety; I25.2 Old myocardial infarction; M35.3 Polymyalgia rheumatica; Z79.02 Long term (current) use of antithrombotics/antiplatelets
CPT/HCPCS: 36415; 36416; 71045; 71250; 74018; 74176; 80048; 80053; 81001; 82962; 83605; 83690; 83735; 84484; 85025; 86140; 87077; 87086; 87186; 93005; 94640; 96365; 96367; 96372; 99285; J0456; J0696; J1815; J1940; J2250; J2270; J2405; J2543; J2920; J3370; J3475; J7030; J7050

== ENCOUNTER → 2021-11-19 14:27 | Outpatient (BNVA) | payer MEDICARE, OTHER, SELFPAY | PROVIDERS: PCP Family Medicine; Visit Provider Internal Medicine Cardiovascular Disease | DX: I25.10 Atherosclerotic heart disease of native coronary artery without angina pectoris (principal); I10 Essential (primary) hypertension; I35.0 Nonrheumatic aortic (valve) stenosis; F17.210 Nicotine dependence, cigarettes, uncomplicated; D64.9 Anemia, unspecified | CPT/HCPCS: 99214 ==

== ENCOUNTER → 2021-12-03 10:42 | Outpatient (BNVA) | payer MEDICARE, OTHER, SELFPAY | PROVIDERS: PCP Family Medicine; Visit Provider Orthopaedic Surgery | DX: M67.912 Unspecified disorder of synovium and tendon, left shoulder (principal); Z98.890 Other specified postprocedural states | CPT/HCPCS: 99212 ==

== ENCOUNTER 2021-12-18 09:34 | Outpatient (RCR) | payer MEDICARE, OTHER, SELFPAY | END 2022-01-05 23:59 | disposition home or self-care (01) | LOC: SPT 09:34 | PROVIDERS: PCP Family Medicine; Referring Provider Orthopaedic Surgery; Visit Provider Orthopaedic Surgery | DX: M25.511 Pain in right shoulder (principal) | CPT/HCPCS: 97161 ==

== ENCOUNTER 2021-12-19 14:30 | Oncology outpatient (recurring) (ONCR) | payer MEDICARE, OTHER, SELFPAY ==
[2021-12-11 14:15] LABS: Basophils % 0.5 %; Eosinophils # 0.2 10^3/uL (0.0-0.8); Eosinophils % 2.5 %; Hematocrit 33.6 % (42.0-52.0); Hemoglobin 10.7 g/dL (11.7-16.6); Lymphocytes # 2.2 10^3/uL (0.8-4.8); Lymphocytes % 26.6 %; Mean Corpuscular HGB Conc 31.8 g/dL (30.0-36.0); Mean Corpuscular Hemoglobin 27.4 pg (28.0-34.0); Mean Corpuscular Volume 86.2 fl (80-94); Mean Platelet Volume 10.6 fL (7.4-10.4); Monocytes # 1.2 10^3/uL (0.2-0.9); Monocytes % 14.6 %; Neutrophils # 4.49 10^3/uL (1.8-7.7); Neutrophils % 55.4 %; Nucleated Red Blood Cells % 0 %; Platelet Count 311 10^3/cmm (130-400); Red Cell Distribution Width 15.4 % (12.1-15.1); White Blood Count 8.1 10^3/uL (4.0-10.0)
[2021-12-11 14:30] LABS: Alanine Aminotransferase 6 U/L (0-41); Albumin Level 3.8 g/dL (3.5-5.2); Alkaline Phosphatase 74 IU/L (40-130); Anion Gap 14.9 (5-19); Aspartate Amino Transferase 11 U/L (0-40); Blood Urea Nitrogen 19 mg/dL (8-23); Calcium 9.5 mg/dL (8.5-10.5); Carbon Dioxide 22 mmol/L (22-29); Chloride 105 mmol/L (98-107); Globulin 2.4 g/dL (1.3-4.6); Glucose 168 mg/dL (65-115); Osmolality Calculated 292 mOsm/kg (285-295); Potassium 3.9 mmol/L (3.5-5.1); Sodium 138 mmol/L (136-145); Total Bilirubin 0.2 mg/dL (0.15-1.2); Total Protein 6.2 g/dL (6.6-8.7)
[2021-12-11 14:44] LABS: Ferritin 25 ng/mL (30-400); Iron 35 ug/dL (59-158); Percent Saturation 12.3 % (20-50); Total Iron Binding Capacity 283 mcg/dl; Unsaturated Iron Binding 248 ug/dL (112-347)
[2021-12-12 15:03] VITALS: BMI 26.0
[2021-12-12] MEDS: sodium chloride 0.9% 250 ML 75 ML IV (15:14)
[2021-12-12] MEDS: ferric carboxy (IVPB) 750 MG in sodium chloride 0.9% (100 ml) 100 ML 345 MG IV (15:20)
[2021-12-12 16:00] VITALS: BP 111/68; PULSE 84; RESP 18; TEMP 36.7; O2SAT 98
[2021-12-19] MEDS: sodium chloride 0.9% 250 ML 100 ML IV (15:13)
[2021-12-19] MEDS: ferric carboxy (IVPB) 750 MG in sodium chloride 0.9% (100 ml) 100 ML 345 MG IV (15:14)
[2021-12-19 15:48] VITALS: BP 107/70; PULSE 77; TEMP 36.7; O2SAT 96
== END 2022-01-05 23:59 | disposition home or self-care (01) ==
PROVIDERS: PCP Family Medicine; Referring Provider Family Medicine; Visit Provider Nurse Practitioner Family
DX: D50.9 Iron deficiency anemia, unspecified (principal)
CPT/HCPCS: 36415; 80053; 82728; 83540; 83550; 85025; 96365; 99214; J1439; J7050

== ENCOUNTER 2022-01-23 12:01 | Oncology outpatient (recurring) (ONCR) | payer MEDICARE, OTHER, SELFPAY ==
[2022-01-23 12:54] LABS: Basophils # 0.1 10^3/uL (0.0-0.1); Basophils % 1.2 %; Eosinophils # 0.4 10^3/uL (0.0-0.8); Eosinophils % 5.2 %; Hematocrit 39.8 % (42.0-52.0); Hemoglobin 12.4 g/dL (11.7-16.6); Lymphocytes # 1.6 10^3/uL (0.8-4.8); Lymphocytes % 20.1 %; Mean Corpuscular HGB Conc 31.2 g/dL (30.0-36.0); Mean Corpuscular Hemoglobin 29.6 pg (28.0-34.0); Mean Platelet Volume 10.4 fL (7.4-10.4); Monocytes # 1.1 10^3/uL (0.2-0.9); Monocytes % 13.9 %; Neutrophils # 4.63 10^3/uL (1.8-7.7); Neutrophils % 59.2 %; Nucleated Red Blood Cells % 0 %; Platelet Count 333 10^3/cmm (130-400); Red Blood Count 4.19 10^6/uL (4.1-5.3); Red Cell Distribution Width 15.1 % (12.1-15.1); White Blood Count 7.8 10^3/uL (4.0-10.0)
[2022-01-23 13:23] LABS: Ferritin 118 ng/mL (30-400); Iron 63 ug/dL (59-158); Percent Saturation 23.5 % (20-50); Total Iron Binding Capacity 268 mcg/dl; Unsaturated Iron Binding 205 ug/dL (112-347)
== END 2022-02-05 23:59 | disposition home or self-care (01) ==
PROVIDERS: Internal Medicine Hematology & Oncology; PCP Family Medicine; Visit Provider Nurse Practitioner Family
DX: D50.9 Iron deficiency anemia, unspecified (principal); I25.10 Atherosclerotic heart disease of native coronary artery without angina pectoris; F17.210 Nicotine dependence, cigarettes, uncomplicated; Z95.5 Presence of coronary angioplasty implant and graft; Z79.02 Long term (current) use of antithrombotics/antiplatelets; Z79.82 Long term (current) use of aspirin; Z85.51 Personal history of malignant neoplasm of bladder; R53.83 Other fatigue; R53.1 Weakness
CPT/HCPCS: 36415; 82728; 83540; 83550; 85025; 99214

== ENCOUNTER → 2022-02-13 10:31 | Outpatient (BNVA) | payer MEDICARE, OTHER, SELFPAY | PROVIDERS: PCP Family Medicine; Visit Provider Family Medicine | DX: N39.0 Urinary tract infection, site not specified (principal) | CPT/HCPCS: 81000; 87077; 87086; 87184 ==

== ENCOUNTER → 2022-02-27 09:17 | Outpatient (BNVA) | payer MEDICARE, OTHER, SELFPAY | PROVIDERS: PCP Family Medicine; Visit Provider Family Medicine | DX: D50.9 Iron deficiency anemia, unspecified (principal); R53.1 Weakness; R41.3 Other amnesia; M54.9 Dorsalgia, unspecified; R63.0 Anorexia; D64.9 Anemia, unspecified | CPT/HCPCS: 80053; 82607; 84443; 85025 ==

== ENCOUNTER 2022-04-01 15:43 | Outpatient (CLI) | payer MEDICARE, OTHER, SELFPAY ==
--- NOTE | 2022-04-01 16:10 | CT_ITS ---
WS: [id number] CT CHEST, ABDOMEN AND PELVIS WITHOUT CONTRAST. HISTORY: history of bladder cancer TECHNIQUE: Contiguous 5 mm axial imaging performed through the chest, abdomen and pelvis without IV c ontrast, oral contrast has not been provided. Coronal and sagittal reformats chest. Coronal and sagit barbara reformats through the abdomen and pelvis. All CT scans at [facility] use at least one of these dose optimization techniques: automated exposure control; mA and/or kV adjustment per patient s ize (includes targeted exams where dose is matched to clinical indication); or iterative reconstructi on. CONTRAST: None DLP: 1276.75 mGy.cm COMPARISON: 10/20/[address]: Mild centrilobular emphysema. Scattered benign calcified granulomata. Mild thickening along the fissures. Tree-in-bud opacifications in the RIGHT upper lobe has resolved. There are no new or e nlarging nodules. Heart is mildly enlarged. Severe coronary artery calcifications. No pericardial or pleural effusion. Extensive calcification thoracic aorta. No aneurysm. Mild enlargement of the pulmon susan artery. No adenopathy. Small hiatal hernia. Abdomen CT: Unenhanced imaging of the liver, spleen, pancreas, gallbladder, adrenals and kidneys with no interval change. Numerous splenic granulomata. No masses are identified on this unenhanced study. There are multiple lobulations within each kidney and low-attenuation masses which are probably cyst s but cannot be further characterized. There are additional areas of cortical thinning. No renal obst ruction. Ectatic aorta. No ascites or adenopathy. Nondistended stomach. No small bowel obstruction. Appendix is not identified. No colonic obstruction. Pelvic CT: Neobladder noted in the RIGHT pelvis. No free fluid or adenopathy. No calcification or mas s identified within the neobladder on this unenhanced exam. Increase in thoracic kyphosis with degenerative disc disease and disc space narrowing. No osteolytic or osteoblastic bone lesions are identified. CT/[place] [id number] IMPRESSION: 1. No evidence for metastatic disease within the chest, abdomen or pelvis on t his unenhanced study. Sensitivity is decreased without contrast. 2. Neobladder in the RIGHT pelvis is well distended. No adjacent adenopathy or mass identified. 3. Chronic emphysema. 4. Coronary artery calcifications, severe. 5. No GI tract obstruction. 6. No ascites.
== END 2022-04-01 15:44 | disposition home or self-care (01) ==
LOC: RAD 15:48
PROVIDERS: PCP Family Medicine; Visit Provider Family Medicine
DX: Z85.51 Personal history of malignant neoplasm of bladder (principal); J43.9 Emphysema, unspecified; I25.10 Atherosclerotic heart disease of native coronary artery without angina pectoris
CPT/HCPCS: 71250; 74176

== ENCOUNTER 2022-04-29 13:07 | Outpatient (CLI) | payer MEDICARE, OTHER, SELFPAY ==
[2022-04-29] VITALS (16 sets, daily range): BP systolic 97–146; BP diastolic 48–81; PULSE 90–99; RESP 18; TEMP 36.6–36.9; O2SAT 95–100
[2022-04-29 14:40] LABS: Anion Gap 13.1 (5-19); Blood Urea Nitrogen 25 mg/dL (8-23); Calcium 9.5 mg/dL (8.5-10.5); Carbon Dioxide 21 mmol/L (22-29); Chloride 110 mmol/L (98-107); Glucose 131 mg/dL (65-115); Osmolality Calculated 296 mOsm/kg (285-295); Potassium 4.1 mmol/L (3.5-5.1); Sodium 140 mmol/L (136-145)
--- NOTE | 2022-04-29 15:15 | ED_ITS ---
HPI - Recheck/Abnormal Lab/Rx General: Chief Complaint: Recheck/Abnormal Lab/Rx Stated Complaint: Blood Transfusion Time Seen by Provider: 04/29/22 13:24 Source: patient and family Mode of arrival: ambulatory History of Present Illness: 86-year-old male with a history of anemia presents to the emergency room with [facility] He was directed here for transfusion. He has been asymptomatic for the most part his vital signs are stable he is awake and alert he denies any abdominal pain chest pain or shortness of breath. He has not had any palpitations he denies any hematochezia melena hematemesis coffee-ground emesis or hematuria. MD complaint: abnormal lab Associated symptoms: none Review of Systems Const: Denies: fever(s), chills, body aches, change in appetite, fatigue or malaise ENMT: Denies: throat pain, ear or mastoid pain, nasal discharge or nasal congestion Card: Denies: chest pain, edema, dyspnea on exertion or orthopnea Resp: Denies: dyspnea, productive cough or non-productive cough GI: Denies: abdominal pain, nausea, vomiting, hematemesis, coffee ground emesis, diarrhea, constipation, bloating, hematochezia or melena : Denies: flank pain, dysuria, urinary frequency or urinary urgency Musc: Denies: neck pain or back pain Skin/Breast: Denies: rash or pruritus PFS ED PFSH: Medical History Anesthesia complication Reports significant vasovagal symptoms post anesthesia, especially as related to post-anesthesia nausea and vomiting which can be difficult to control Aortic valve stenosis Echocardiogram 01/2021 with moderate stenosis, mean gradient 25.3mmHg, MARBIN 1.4 cm2 Benign essential HTN CAD (coronary artery disease) Chronic UTI COPD (chronic obstructive pulmonary disease) History of bladder cancer History of cardiac arrest Hyperlipidemia associated with type 2 diabetes mellitus Incomplete bladder emptying Iron deficiency anemia Obstructive sleep apnea By 2015 sleep study with persistent nocturnal hypoxemia/apnea noted in hospital stay 10/2021 Osteoarthritis Polymyalgia Renal failure Small bowel obstruction 10/2017, 10/2021 Surgical History H/O elbow surgery left History of cataract surgery History of urinary diversion procedure (~1996) Neobladder Hx of transurethral destruction of bladder lesion Previous back surgery S/P PTCA (percutaneous transluminal coronary angioplasty) Stent x 4-5 stents Family History Father Stroke Mother CHF (congestive heart failure) Cardiomegaly Family/Other Diabetes Grandmother Diabetes Other CAD (coronary artery disease) Denies family history of Clotting disorder Dementia Chronic kidney disease (CKD) Suicide Anesthesia complication Bleeding disorder Lung disease Cancer Social History Smoking and tobacco status: current every day smoker (1 to 1.5 ppd) cigarettes Alcohol intake: current Alcohol intake frequency: holidays/special occasions only Substance/Drug Use: never Household members: other Details: lives alone, daughter lives next door Marital status: Current occupational status: retired History of recent travel: No Physical Exam Const: COMMON NORMALS: no acute distress GENERAL APPEARANCE: cooperative and comfortable ORIENTATION/CONSCIOUSNESS: Yes awake, Yes oriented to person, Yes oriented to place and Yes oriented to time HENMT: COMMON NORMALS: normocephalic, atraumatic and hearing grossly normal bilaterally HEAD & SCALP: normocephalic and atraumatic Resp: COMMON NORMALS: normal respiratory effort, No retractions, No use of accessory muscles and clear to auscultation bilaterally AUSCULTATION: clear to auscultation bilaterally Cardio: COMMON NORMALS: regular rate, regular rhythm and No murmurs present (Cardio) RATE: regular rate RHYTHM: regular rhythm GI: COMMON NORMALS: Soft to palpation and No hepatosplenomegaly present AUSCULTATION: Yes normoactive bowel sounds PALPATION: Yes Soft to palpation, No Tenderness to palpation present (GI), No Guarding due to palpation present (GI) and Yes No hepatosplenomegaly present Extremity: COMMON NORMALS: normal to inspection, capillary refill normal, no clubbing, cyanosis or edema, no calf tenderness and no pedal edema Neuro: SENSORIUM/ORIENTATION: Yes oriented to person, Yes oriented to place and Yes oriented to time Skin: COMMON NORMALS: no rashes or lesions noted GENERAL SKIN EXAM: no rash es or lesions noted Course Vital Signs: Vital signs: Vital Signs Temperature 98.2 F 04/29/22 20:20 Pulse Rate 98 11/22/22 20:20 Respiratory Rate 18 04/29/22 20:20 Blood Pressure 120/74 04/29/22 20:20 Pulse Oximetry 97 04/29/22 20:20 Oxygen Delivery Me thod 04/29/22 16:10 MDM - Recheck/Abnormal Lab/Rx Medical Decision Making Patient replaced outpatient in bed transfused discussed with hospitalist Dr. Watson seen the patient we will move him to the floor and transfuse. Medical Records I reviewed the patient's medical records. Lab Data I reviewed the patient's lab results. 04/29/22 14:05 Laboratory Results Sodium 140 mmol/L (136-145) 04/29/22 14:05 Potassium 4.1 mmol/L (3.5-5.1) 04/29/22 14:05 Chloride 110 mmol/L (98-107) H 04/29/22 14:05 Carbon Dioxide 21 mmol/L (22-29) L 04/29/22 14:05 Anion Gap 13.1 (5-19) 04/29/22 14:05 BUN 25 mg/dL (8-23) H 04/29/22 14:05 Creatinine 0.9 mg/dL (0.7-1.2) 04/29/22 14:05 GFR Calculation Not Reportable 04/29/22 14:05 Glucose 131 mg/dL (65-115) H 04/29/22 14:05 Calculated Osmolality 296 mOsm/kg (285-295) H 04/29/22 14:05 Calcium 9.5 mg/dL (8.5-10.5) 04/29/22 14:05 Blood Type O Positive 04/29/22 13:40 Rho(D) Type Positive 04/29/22 13:40 Antibody Screen Negative 04/29/22 13:40 Crossmatch See Detail 04/29/22 13:40 Discharge Plan Discharge Patient Disposition: Placed in Observation Clinical Impression: Anemia Discharge Diet: Advance as tolerated Discharge Activity: Increase activity as tolerated Coding Level of Care Code ED Sales Systems Engineer for Saul Lema
[2022-04-29] MEDS: nicotine 21 mg Patch 1 PATCH TRANSDERMA (15:44)
--- NOTE | 2022-04-29 15:50 | PM.SDS ---
Short Stay Summary Providers Date of Admit/Discharge: 04/30/22 Attending Provider: Jenny Watson MD Consults: None Referring provider: Dr Olivo, Hematology/Oncology Primary Care Provider: Jovanny Pacheco DO Chief Complaint: Blood Transfusion HPI History of Present Illness Gerardo Pardo is a 86 year old male who presented to the emergency room from hematology oncology clinic with complaint of abnormal laboratory studies. Patient has a history of longstanding iron deficiency anemia. He has required intermittent transfusion for some years along with IV iron. Specific etiology of anemia has not been clearly delineated over time but strongly suspected to be slow GI losses. He did have work-up in [place] some years ago in which hemorrhoidal bleeding was identified. He has a history of significant vasovagal events with anesthesia, particularly with nausea and vomiting postanesthesia and at his age and with known comorbidities has not wanted to pursue repeat GI work-up. Last transfusion was in August of this year. Posttransfusion hemoglobin improved to a max of 15 in October of this year. He was noted to have hemoglobin of 9.4 in February. Today hemoglobin was 6.2. He has been weaker lately, progressively declining. Today he required a wheelchair for assistance navigating doctor appointment. He has been more short of breath with exertion and tired all the time. He is paler than usual per his family. He was not able to be transfused in the clinic setting today and with the symptoms he was exhibiting, known coronary artery disease with multiple stents, aortic valve stenosis and hemoglobin level he was sent to the emergency room for further care. History is obtained from a combination of Mr. Pardo and his daughter. In talking with him when specifically questioned he will admit to intermittent episodes of bright red blood per rectum. Unable to really get a sense of frequency that this occurs. No large-volume blood per rectum. No hematuria. No nosebleeds or other gross blood losses. Iron level was checked at heme-onc clinic today and was low at 9 with a percent saturation of 2.3. Review of Systems Const: Reports: body aches, change in weight, fatigue and daytime sleepiness; Denies: fever(s) or chills ENMT: Denies: epistaxis Card: Reports: chest pain (Intermittent discomfort left shoulder to chest/back, thinks shoulder) and dyspnea on exertion; Denies: palpitations or edema Resp: Reports: dyspnea and other (Smokes regularly) GI: Reports: hematochezia (Bright red, sometimes); Denies: abdominal pain, nausea or vomiting : Reports: other (Neobladder, self-catheterization) Musc: Reports: back pain (Upper) and extremity pain (Left shoulder) Skin/Breast: Reports: other (No large bruises) Neuro: Reports: weakness in extremities, difficulty walking, dizziness and difficulty communicating thoughts (Sometimes); Denies: frequent falls Psych: Reports: memory loss and other (Does not like to get transfusions) Adam/Lymph: Reports: other (Takes Plavix); Denies: easy bleeding All/Imm: Reports: other (No history of transfusion reactions) Home Meds/Allergies Home Medications and Allergies Home Medications Medication Instructions Recorded Confirmed Type ascorbic acid (vitamin C) 500 mg 1,000 mg PO BID 08/16/19 04/29/22 History tablet cranberry 400 mg capsule 400 mg PO DAILY 08/16/19 04/29/22 History lactobacillus combination no.9 4 4,000 mmu cells PO DAILY 08/16/19 04/29/22 History billion cell capsule (Adult 50 Plus Probiotic) metoprolol tartrate 25 mg tablet 12.5 mg PO DAILY 08/16/19 04/29/22 History multivitamin 1 tab PO DAILY 08/16/19 04/29/22 History nitroglycerin 0.4 mg sublingual 0.4 mg sublingual Q5M PRN chest 08/16/19 04/29/22 History tablet (Nitrostat) pain IMMUNE 1 tab PO DAILY 05/23/21 04/29/22 History docusate sodium 100 mg capsule 100 mg PO DAILY 04/29/22 04/29/22 History (Stool Softener) Allergies Allergy/AdvReac Type Severity Reaction Status Date / Time No Known Allergies Allergy Verified 04/29/22 12:30 PFSH Acute PFSH: Medical History Anesthesia complication Reports significant vasovagal symptoms post anesthesia, especially as related to post-anesthesia nausea and vomiting which can be difficult to control Aortic valve stenosis Echocardiogram 01/2021 with moderate stenosis, mean gradient 25.3mmHg, MARBIN 1.4 cm2 Benign essential HTN CAD (coronary artery disease) Chronic UTI COPD (chronic obstructive pulmonary disease) History of bladder cancer History of cardiac arrest Hyperlipidemia associated with type 2 diabetes mellitus Incomplete bladder emptying Iron deficiency anemia Obstructive sleep apnea By 2015 sleep study with persistent nocturnal hypoxemia/apnea noted in hospital stay 10/2021 Osteoarthritis Polymyalgia Renal failure Small bowel obstruction 10/2017, 10/2021 Surgical History H/O elbow surgery left History of cataract surgery History of urinary diversion procedure (~1996) Neobladder Hx of transurethral destruction of bladder lesion Previous back surgery S/P PTCA (percutaneous transluminal coronary angioplasty) Stent x 4-5 stents Family History Father Stroke Mother CHF (congestive heart failure) Cardiomegaly Family/Other Diabetes Grandmother Diabetes Other CAD (coronary artery disease) Denies family history of Clotting disorder Dementia Chronic kidney disease (CKD) Suicide Anesthesia complication Bleeding disorder Lung disease Cancer Social History Smoking and tobacco status: current every day smoker (1 to 1.5 ppd) cigarettes Alcohol intake: current Alcohol intake frequency: holidays/special occasions only Substance/Drug Use: never Household members: other Details: lives alone, daughter lives next door Marital status: Current occupational status: retired History of recent travel: No Vitals/I&O/Wt Last Vital Signs Temp 98.0 F 04/29/22 13:10 Pulse 94 04/29/22 15:27 Resp 18 04/29/22 13:10 BP 140/63 04/29/22 15:27 Pulse Ox 100 04/29/22 15:27 04/29/22 04/29/22 04/29/22 06:59 14:59 22:59 Intake Total 0 / 0 Balance 0 / 0 Weight last 48 hrs Weight 78.471 kg Physical Exam Narrative: Constitutional: Awake and alert, able to provide most history though daughter confirms details, pale appearance HEENT: Normocephalic, left eyelid lower is droopy with some erythema but otherwise conjunctive are pale, extraocular movements intact Respiratory: Scattered wheeze, no accessory muscle use noted Cardiovascular: Regular rate and rhythm, murmur of aortic stenosis noted Abdomen: Soft, nontender Extremities: Trace edema in the pretibial area, did not remove patient's boots Skin: Visible skin is pale, no areas of bruising noted Neuro: Speech clear, face symmetric, moves all extremities Psych: Normal affect Hospital Course Admission Diagnoses Same as above Hospital Course Patient was placed in outpatient in a bed status. He was typed and crossed and received transfusion of 2 units of packed red blood cells after obtaining appropriate consent. In talking with him and his daughter as well as reviewing old records, the anemia and need for recurrent transfusion and IV iron replacement is longstanding. Some years ago he had evaluation with endoscopy with only identifying abnormality being hemorrhoids. He has known coronary artery disease status post 4-5 previous stents. He is on chronic Plavix therapy and was instructed by cardiology to never come off of such unless absolutely had to. When specifically asked patient did admit that he intermittently will have bright red blood per rectum but was unable to quantify either amount or frequency more specifically. Daughter indicated she thinks it may be a significant amount periodically, though she is not certain. He denied abdominal pain, nausea or vomiting recently, but in February, he had a period of early satiety, poor appetite, abdominal discomfort and weight loss. A CT was performed to evaluate for possibility of metastatic disease given history of cancer, but no obvious lesions identified in noncontrasted study. He is followed regularly by hematology/oncology and general thought is that he has slow GI blood losses which have simply not been identified. Hemorrhoidal source is only clearly defined possible cause, but given symptoms in February, gastritis or other gastric source a possibility. He is chronically on famotidine. Given need for recurrent transfusion again within 6 months, and drop in hemoglobin from 9 to 6 since February, discussed with patient and his daughter consideration for changing to proton pump inhibitor as an option to see if it makes any difference going forward. They were in agreement with with this plan. Have written prescription for 40 mg twice daily x2 weeks followed by daily thereafter. Prescription was provided to them from [facility] pharmacy prior to discharge. We talked about the risk and benefits of continuing Plavix. At this time given that the blood loss is generally slow without episodes of gross bleeding and ability to manage with monitoring and transfusions that we would continue the Plavix. I reviewed both of these plans with Estella Edvin's primary care provider, Dr. Pacheco who was in agreement. Patient tolerated transfusion without difficulty. He will have follow-up post-transfusion laboratory work at Dr. Olivo's office along with Injectafer infusion. Recommended follow-up with primary care provider as well as outlined below. From a cardiac standpoint patient follows with Dr. Etienne. Unless requires transfusion more frequently than has been his historical baseline I believe can follow-up with cardiology as needed in regards to continuation of plavix. Patient was noted to have a white count of 14,000. I suspect this is related to impact from anemia. There was no report of fever, new respiratory, GI or urinary symptoms nor other indicators of acute infection. Discharged home with daughter. [facility] Data Data Completed and Pending: Laboratory Results Sodium 140 mmol/L (136-1 45) 04/29/22 14:05 Potassium 4.1 mmol/L (3.5-5 .1) 04/29/22 14:05 Chloride 110 mmol/L (98-10 7) H 04/29/22 14:05 Carbon Dioxide 21 mmol/L (22-29) L 04/29/22 14:05 Anion Gap 13.1 (5-19) 04/29/22 14:05 BUN 25 mg/dL (8-23) H 04/29/22 14:05 Creatinine 0.9 mg/dL (0.7-1. 2) 04/29/22 14:05 GFR Calculation Not Reportable 04/29/22 14:05 Glucose 131 mg/dL (65-115 ) H 04/29/22 14:05 Calculated Osmolal ity 296 mOsm/kg (285- 295) H 04/29/22 14:05 Calcium 9.5 mg/dL (8.5-10 .5) 04/29/22 14:05 Blood Type O Positive 04/29/22 13:40 Rho(D) Type Positive 04/29/22 13:40 Antibody Screen Negative 04/29/22 13:40 Crossmatch See Detail 04/29/22 13:40 04/29/22 04/29/22 11:25 11:25 WBC 14.1 H Hgb 6.2 L* Hct 22.3 L MCV 79.9 L Plt Count 397 Iron 9 L TIBC 382 % Saturation 2.3 L Unsat Iron Binding 373 H Ferritin 6 L Procedures Performed: Transfusion 2 units packed RBCs Diagnoses at Discharge Discharge Diagnosis (1) Short of breath on exertion: Status: Resolved (2) Weakness: Status: Acute (3) Iron deficiency anemia: Details from hospital stay: Acute on chronic, symptomatic as described, status post transfusion 2 units of packed red blood cells Status: Acute Qualifiers: Iron deficiency anemia type: chronic blood loss Qualified Code(s): D50.0 - Iron deficiency anemia secondary to blood loss (chronic) (4) Atherosclerotic heart disease of [place] coronary artery with other forms of angina pectoris: Status: Chronic Discharge Plan Discharge Patient Disposition: Home Prescriptions: New pantoprazole 40 mg tablet,delayed release (DR/EC) 40 mg PO BID Qty: 42 2RF Rx Instructions: Take 1 tab twice per day for two weeks then daily thereafter Continued cranberry 400 mg capsule 400 mg PO DAILY multivitamin Tablet 1 tab PO DAILY Adult 50 Plus Probiotic 4 billion cell capsule 4,000 mmu cells PO DAILY nitroglycerin [Nitrostat] 0.4 mg tablet, sublingual 0.4 mg SUBLINGUAL Q5M PRN (Reason: chest pain) metoprolol tartrate 25 mg tablet 12.5 mg PO DAILY ascorbic acid (vitamin C) 500 mg tablet 1,000 mg PO BID docusate sodium [Stool Softener] 100 mg capsule 100 mg PO DAILY IMMUNE 1 tab PO DAILY rosuvastatin 20 mg tablet 20 mg PO DAILY Qty: 90 3RF methenamine hippurate 1 gram tablet See Rx Instructions .ROUTE .COMPLEX Qty: 60 12RF Dose Instruction: TAKE 1 TABLET BY MOUTH TWICE DAILY WITH 1000MG OF VITAMIN C WITH EACH DOSE Rx Instructions: TAKE 1 TABLET BY MOUTH TWICE DAILY WITH 1000MG OF VITAMIN C WITH EACH DOSE clopidogrel [Plavix] 75 mg tablet 75 mg PO DAILY Qty: 90 3RF albuterol sulfate 90 mcg/actuation HFA aerosol inhaler 2 inh inhalation Q8H PRN (Reason: shortness of breath or wheezing) Qty: 8.5 2RF Discontinued famotidine 20 mg tablet 20 mg PO BID Other Ambulatory Orders: Complete Blood Count w/Auto (Routine) Timeframe: 20220505 Location: Determined by Patient Ordered By: Jenny Watson Referrals: Jovanny Pacheco DO [Primary Care Provider] - 2 weeks (Follow up status post outpatient visit for blood transfusion, continuing plavix, changed to pantoprazole from famotidine, seeing Dr Olivo week of 05/05 for follow up lab and Injectofer. Reports intermittent BRBPR. Please contact Dr. Pacheco' office tomorrow morning to schedule a hospital follow up appointment within 2 weeks. ) Zaid Olivo MD [Staff Physician] - 4-7 days (Daughter to call for appointment on 05-05 for lab and Injectofer. ) Diet: Advance as tolerated Activity: Increase activity as tolerated Patient Instructions: Pantoprazole (By mouth), Iron Deficiency Anemia (GEN), Blood Transfusion (DC), Opioid Safety, Pain Management Activity Restrictions/Additional Instructions: Your hemoglobin was found to be 6.2 today. You were sent to the hospital from oncology clinic for transfusion. Transfusion of 2 units of packed red blood cells was administered. You are monitored appropriately posttransfusion and felt stable for discharge home. You will be following up with Dr. Olivo for laboratory studies posttransfusion and repeat administration of Injectafer. I have also requested that you see Dr. Pacheco in 2 weeks as an additional follow-up. Reviewed with Dr. Pacheco on the phone reason for visit, planned change from famotidine to pantoprazole as well as continuing Plavix currently. Print Language: Turkmen Discharge Date/Time: 04/29/22 20:27 Attestations Medical Necessity Statement*: Anticipated stay less than 1 day for transfusion of 2 units of packed red blood cells in a patient with a longstanding history of anemia who has required transfusions in the past. Etiology of anemia has not been clearly delineated but is strongly suspected to be slow GI blood losses. Plans are as described. Time Spent in Patient Care*: greater than 30 min (48 minutes) Specific Discharge Activities: Specific discharge activities: educating patient, educating and/or supporting family/caregiver and documenting/other paperwork Quality Metrics Clinical Quality Measures: [ No reported AMI, CVA or VTE this stay] Coding Level of Care Code Acute Surplus Property Disposal Agent for Chg Fwd Diagnoses Short of breath on exertion R06.02 Weakness R53.1 Iron deficiency anemia D50.0 Iron deficiency anemia type: chronic blood loss Atherosclerotic heart disease of [place] coronary artery with other forms of angina pectoris I25.118
[2022-04-29] MEDS: sodium chloride 0.9% 100 mL Bag 50 ML IV (17:42)
[2022-04-29] MEDS: pantoprazole DR 40 mg Tablet PO (17:43)
--- NOTE | 2022-04-29 20:22 | PC.NURSE ---
Addendum entered by Kimberley Ying RN 04/29/22 20:27: Daughter given discharge instructions and signed discharge paperwork. Patient left with daughter. Original Note: Patient's second unit of blood finished. VSS. Lungs have wheezing, but no crackles. Patient alert and oriented x4 and does not have any complaints. Patient stable. IV removed with catheter intact. Dr. Watson gave order to discharge. Patient wanted discharge instructions given to daughter who was at bedside. Patient also stated he was okay with daughter signing discharge paperwork.
== END 2022-04-29 20:27 | disposition home or self-care (01) ==
LOC: ER 15:49 → OPMS 16:32 → MEDSURG 16:32
PROVIDERS: Emergency Provider Family Medicine; PCP Family Medicine; Visit Provider Hospitalist
DX: R06.02 Shortness of breath (principal); R53.1 Weakness; D50.0 Iron deficiency anemia secondary to blood loss (chronic); I25.118 Atherosclerotic heart disease of native coronary artery with other forms of angina pectoris; I10 Essential (primary) hypertension; J44.9 Chronic obstructive pulmonary disease, unspecified; Z85.51 Personal history of malignant neoplasm of bladder; E78.5 Hyperlipidemia, unspecified; E11.9 Type 2 diabetes mellitus without complications; G47.33 Obstructive sleep apnea (adult) (pediatric); M19.90 Unspecified osteoarthritis, unspecified site; F17.210 Nicotine dependence, cigarettes, uncomplicated; Z95.5 Presence of coronary angioplasty implant and graft
CPT/HCPCS: 36430; 80048; 86850; 86900; 86920; 99214; P9016; P9040

== ENCOUNTER 2022-05-05 08:00 | Oncology outpatient (recurring) (ONCR) | payer MEDICARE, OTHER, SELFPAY ==
[2022-04-29 11:36] LABS: Basophils % 0.3 %; Eosinophils # 0.1 10^3/uL (0.0-0.8); Eosinophils % 0.5 %; Hematocrit 22.3 % (42.0-52.0); Lymphocytes # 1.6 10^3/uL (0.8-4.8); Mean Corpuscular HGB Conc 27.8 g/dL (30.0-36.0); Mean Corpuscular Hemoglobin 22.2 pg (28.0-34.0); Mean Corpuscular Volume 79.9 fl (80-94); Mean Platelet Volume 10.3 fL (7.4-10.4); Monocytes # 1.4 10^3/uL (0.2-0.9); Neutrophils # 10.96 10^3/uL (1.8-7.7); Neutrophils % 77.6 %; Nucleated Red Blood Cells % 0.2 %; Platelet Count 397 10^3/cmm (130-400); Red Blood Count 2.79 10^6/uL (4.1-5.3); Red Cell Distribution Width 16.9 % (12.1-15.1); White Blood Count 14.1 10^3/uL (4.0-10.0)
[2022-04-29 12:05] LABS: Ferritin 6 ng/mL (30-400); Hemoglobin 6.2 g/dL (11.7-16.6); Iron 9 ug/dL (59-158); Percent Saturation 2.3 % (20-50); Total Iron Binding Capacity 382 mcg/dl; Unsaturated Iron Binding 373 ug/dL (112-347)
[2022-05-05] VITALS (8 sets, daily range): BP systolic 95–131; BP diastolic 54–69; PULSE 78–84; RESP 16–18; TEMP 36.2–37; O2SAT 95–97
[2022-05-05 08:57] LABS: Basophils # 0.1 10^3/uL (0.0-0.1); Basophils % 0.8 %; Eosinophils # 0.2 10^3/uL (0.0-0.8); Eosinophils % 1.3 %; Hematocrit 26.8 % (42.0-52.0); Hemoglobin 7.9 g/dL (11.7-16.6); Lymphocytes # 1.1 10^3/uL (0.8-4.8); Lymphocytes % 9.4 %; Mean Corpuscular HGB Conc 29.5 g/dL (30.0-36.0); Mean Corpuscular Hemoglobin 23.9 pg (28.0-34.0); Mean Platelet Volume 10.3 fL (7.4-10.4); Monocytes # 1.7 10^3/uL (0.2-0.9); Monocytes % 14.2 %; Neutrophils % 73.6 %; Nucleated Red Blood Cells % 0 %; Platelet Count 329 10^3/cmm (130-400); Red Blood Count 3.31 10^6/uL (4.1-5.3); White Blood Count 11.8 10^3/uL (4.0-10.0)
[2022-05-05] MEDS: ferric carboxy (IVPB) 750 MG in sodium chloride 0.9% (100 ml) 100 ML 345 MG IV (09:39)
[2022-05-05] MEDS: acetaminophen 325 mg Tablet 650 MG PO (09:40)
[2022-05-05] MEDS: diphenhydrAMINE 25 mg Capsule PO (09:40)
[2022-05-05] MEDS: sodium chloride 0.9% 250 mL Bag IV (12:28)
== END 2022-05-07 23:59 | disposition home or self-care (01) ==
PROVIDERS: Nurse Practitioner Family; PCP Family Medicine; Visit Provider Internal Medicine Hematology & Oncology
DX: D50.9 Iron deficiency anemia, unspecified (principal); Z79.899 Other long term (current) drug therapy
CPT/HCPCS: 36430; 80048; 82728; 83540; 83550; 85025; 86850; 86900; 86920; 96365; 99214; J1439; J7050; P9016; P9040

== ENCOUNTER 2022-05-12 11:20 | Oncology outpatient (recurring) (ONCR) | payer MEDICARE, OTHER, SELFPAY ==
[2022-05-12 12:18] LABS: Basophils # 0.1 10^3/uL (0.0-0.1); Basophils % 0.5 %; Eosinophils # 0.2 10^3/uL (0.0-0.8); Eosinophils % 1.7 %; Hematocrit 32.9 % (42.0-52.0); Hemoglobin 9.8 g/dL (11.7-16.6); Lymphocytes # 1.4 10^3/uL (0.8-4.8); Lymphocytes % 15.4 %; Mean Corpuscular HGB Conc 29.8 g/dL (30.0-36.0); Mean Corpuscular Volume 90.6 fl (80-94); Mean Platelet Volume 10.6 fL (7.4-10.4); Monocytes # 1.2 10^3/uL (0.2-0.9); Monocytes % 13.2 %; Neutrophils # 6.27 10^3/uL (1.8-7.7); Nucleated Red Blood Cells % 0 %; Platelet Count 349 10^3/cmm (130-400); Red Blood Count 3.63 10^6/uL (4.1-5.3); Red Cell Distribution Width 24.2 % (12.1-15.1); White Blood Count 9.2 10^3/uL (4.0-10.0)
[2022-05-12 13:00] VITALS: BP 104/64; PULSE 70; RESP 18; TEMP 36.9; O2SAT 99
== END 2022-06-07 23:59 | disposition home or self-care (01) ==
PROVIDERS: PCP Family Medicine; Visit Provider Internal Medicine Hematology & Oncology
DX: D50.9 Iron deficiency anemia, unspecified (principal)
CPT/HCPCS: 85025; 96365

== ENCOUNTER 2022-06-30 12:30 | Oncology outpatient (recurring) (ONCR) | payer MEDICARE, OTHER, SELFPAY ==
[2022-06-12 11:14] LABS: Basophils # 0.1 10^3/uL (0.0-0.1); Eosinophils # 0.3 10^3/uL (0.0-0.8); Eosinophils % 2.9 %; Hematocrit 32.5 % (42.0-52.0); Hemoglobin 9.7 g/dL (11.7-16.6); Lymphocytes # 1.7 10^3/uL (0.8-4.8); Lymphocytes % 18.6 %; Mean Corpuscular HGB Conc 29.8 g/dL (30.0-36.0); Mean Corpuscular Hemoglobin 28.9 pg (28.0-34.0); Mean Corpuscular Volume 96.7 fl (80-94); Mean Platelet Volume 10.1 fL (7.4-10.4); Monocytes # 1.3 10^3/uL (0.2-0.9); Monocytes % 14.3 %; Neutrophils % 62.7 %; Nucleated Red Blood Cells % 0 %; Platelet Count 451 10^3/cmm (130-400); Red Blood Count 3.36 10^6/uL (4.1-5.3); Red Cell Distribution Width 18.2 % (12.1-15.1); White Blood Count 9.3 10^3/uL (4.0-10.0)
[2022-06-12 11:40] LABS: Ferritin 54 ng/mL (30-400); Iron 22 ug/dL (59-158); Percent Saturation 8.4 % (20-50); Total Iron Binding Capacity 261 mcg/dl; Unsaturated Iron Binding 239 ug/dL (112-347)
[2022-06-25 13:31] LABS: Basophils # 0.1 10^3/uL (0.0-0.1); Basophils % 0.9 %; Eosinophils # 0.3 10^3/uL (0.0-0.8); Eosinophils % 4.3 %; Hematocrit 33.2 % (42.0-52.0); Hemoglobin 9.9 g/dL (11.7-16.6); Lymphocytes # 1.8 10^3/uL (0.8-4.8); Lymphocytes % 23.4 %; Mean Corpuscular HGB Conc 29.8 g/dL (30.0-36.0); Mean Corpuscular Hemoglobin 27.4 pg (28.0-34.0); Mean Platelet Volume 10.1 fL (7.4-10.4); Monocytes # 1.1 10^3/uL (0.2-0.9); Monocytes % 13.9 %; Neutrophils # 4.32 10^3/uL (1.8-7.7); Nucleated Red Blood Cells % 0 %; Platelet Count 280 10^3/cmm (130-400); Red Blood Count 3.61 10^6/uL (4.1-5.3); Red Cell Distribution Width 16.4 % (12.1-15.1); White Blood Count 7.6 10^3/uL (4.0-10.0)
[2022-06-25 13:35] LABS: Reticulocyte % 3.8 % (0.5-2.0)
[2022-06-25 14:08] LABS: Ferritin 23 ng/mL (30-400); Iron 41 ug/dL (59-158); Percent Saturation 13.8 % (20-50); Total Iron Binding Capacity 297 mcg/dl; Unsaturated Iron Binding 256 ug/dL (112-347)
[2022-06-25 14:23] LABS: Vitamin B12 466 pg/mL (232-1245)
[2022-06-30] MEDS: sodium chloride 0.9% 250 ML 75 ML IV (12:50)
[2022-06-30] MEDS: ferric carboxy (IVPB) 750 MG in sodium chloride 0.9% (100 ml) 100 ML 345 MG IV (12:50)
[2022-06-30 15:54] VITALS: BP 147/84; PULSE 84; RESP 16; TEMP 36.6; O2SAT 98
== END 2022-07-08 23:59 | disposition home or self-care (01) ==
PROVIDERS: PCP Family Medicine; Visit Provider Internal Medicine Hematology & Oncology
DX: D50.0 Iron deficiency anemia secondary to blood loss (chronic)
CPT/HCPCS: 36415; 82607; 82728; 83540; 83550; 85025; 85045; 96365; 99214; J1439; J7050

== ENCOUNTER 2022-07-16 10:11 | Oncology outpatient (recurring) (ONCR) | payer MEDICARE, OTHER, SELFPAY ==
[2022-07-09] MEDS: ferric carboxy (IVPB) 750 MG in sodium chloride 0.9% (100 ml) 100 ML 345 MG IV (13:51)
[2022-07-16 10:51] LABS: Basophils # 0.1 10^3/uL (0.0-0.1); Basophils % 0.7 %; Eosinophils # 0.2 10^3/uL (0.0-0.8); Eosinophils % 2.2 %; Hematocrit 34.9 % (42.0-52.0); Hemoglobin 10.7 g/dL (11.7-16.6); Lymphocytes # 1.4 10^3/uL (0.8-4.8); Lymphocytes % 14.3 %; Mean Corpuscular HGB Conc 30.7 g/dL (30.0-36.0); Mean Corpuscular Hemoglobin 28.7 pg (28.0-34.0); Mean Corpuscular Volume 93.6 fl (80-94); Mean Platelet Volume 10.2 fL (7.4-10.4); Monocytes # 1.5 10^3/uL (0.2-0.9); Monocytes % 15.5 %; Neutrophils # 6.58 10^3/uL (1.8-7.7); Neutrophils % 66.9 %; Nucleated Red Blood Cells % 0 %; Platelet Count 341 10^3/cmm (130-400); Red Blood Count 3.73 10^6/uL (4.1-5.3); Red Cell Distribution Width 19.9 % (12.1-15.1); White Blood Count 9.9 10^3/uL (4.0-10.0)
[2022-07-16 11:05] LABS: Ferritin 529 ng/mL (30-400); Iron 39 ug/dL (59-158); Percent Saturation 16.7 % (20-50); Total Iron Binding Capacity 233 mcg/dl; Unsaturated Iron Binding 194 ug/dL (112-347)
== END 2022-08-05 23:59 | disposition home or self-care (01) ==
LOC: LAB 10:12 → ONCMED 10:20
PROVIDERS: PCP Family Medicine; Visit Provider Internal Medicine Hematology & Oncology
DX: D50.0 Iron deficiency anemia secondary to blood loss (chronic)
CPT/HCPCS: 82728; 83540; 83550; 85025; 96365; J1439

== ENCOUNTER → 2022-07-17 13:58 | Outpatient (BNVA) | payer MEDICARE, OTHER, SELFPAY | PROVIDERS: PCP Family Medicine; Visit Provider Family Medicine | DX: R33.9 Retention of urine, unspecified (principal); Z78.9 Other specified health status; R39.9 Unspecified symptoms and signs involving the genitourinary system; Z85.51 Personal history of malignant neoplasm of bladder | CPT/HCPCS: 81000; 87086 ==

== ENCOUNTER 2022-08-07 13:33 | Oncology outpatient (recurring) (ONCR) | payer MEDICARE, OTHER, SELFPAY ==
[2022-08-07 14:27] LABS: Basophils # 0.1 10^3/uL (0.0-0.1); Basophils % 0.8 %; Eosinophils # 0.2 10^3/uL (0.0-0.8); Eosinophils % 3.2 %; Hematocrit 40.5 % (42.0-52.0); Hemoglobin 12.7 g/dL (11.7-16.6); Lymphocytes # 1.6 10^3/uL (0.8-4.8); Lymphocytes % 20.6 %; Mean Corpuscular HGB Conc 31.4 g/dL (30.0-36.0); Mean Corpuscular Hemoglobin 29.1 pg (28.0-34.0); Mean Corpuscular Volume 92.9 fl (80-94); Mean Platelet Volume 10.5 fL (7.4-10.4); Monocytes % 13.3 %; Neutrophils # 4.66 10^3/uL (1.8-7.7); Neutrophils % 61.8 %; Nucleated Red Blood Cells % 0 %; Platelet Count 309 10^3/cmm (130-400); Red Blood Count 4.36 10^6/uL (4.1-5.3); Red Cell Distribution Width 16.5 % (12.1-15.1); White Blood Count 7.5 10^3/uL (4.0-10.0)
[2022-08-07 14:47] LABS: Ferritin 100 ng/mL (30-400); Iron 46 ug/dL (59-158); Percent Saturation 18.5 % (20-50); Total Iron Binding Capacity 248 mcg/dl; Unsaturated Iron Binding 202 ug/dL (112-347)
== END 2022-09-05 23:59 | disposition home or self-care (01) ==
PROVIDERS: PCP Family Medicine; Visit Provider Internal Medicine Hematology & Oncology
DX: D50.0 Iron deficiency anemia secondary to blood loss (chronic) (principal); F17.210 Nicotine dependence, cigarettes, uncomplicated; Z79.899 Other long term (current) drug therapy; Z86.79 Personal history of other diseases of the circulatory system
CPT/HCPCS: 36415; 82728; 83540; 83550; 85025; 99214

== ENCOUNTER 2022-09-09 13:16 | Oncology outpatient (recurring) (ONCR) | payer MEDICARE, OTHER, SELFPAY ==
[2022-09-09 13:43] LABS: Basophils # 0.1 10^3/uL (0.0-0.1); Basophils % 0.7 %; Eosinophils # 0.4 10^3/uL (0.0-0.8); Eosinophils % 4.4 %; Hematocrit 37.5 % (42.0-52.0); Hemoglobin 11.9 g/dL (11.7-16.6); Lymphocytes # 1.8 10^3/uL (0.8-4.8); Lymphocytes % 20.2 %; Mean Corpuscular HGB Conc 31.7 g/dL (30.0-36.0); Mean Corpuscular Hemoglobin 28.7 pg (28.0-34.0); Mean Corpuscular Volume 90.4 fl (80-94); Mean Platelet Volume 10.6 fL (7.4-10.4); Monocytes # 1.1 10^3/uL (0.2-0.9); Monocytes % 12.8 %; Neutrophils # 5.43 10^3/uL (1.8-7.7); Neutrophils % 61.4 %; Nucleated Red Blood Cells % 0 %; Platelet Count 332 10^3/cmm (130-400); Red Blood Count 4.15 10^6/uL (4.1-5.3); Red Cell Distribution Width 15.3 % (12.1-15.1); White Blood Count 8.8 10^3/uL (4.0-10.0)
[2022-09-09 13:59] LABS: Ferritin 44 ng/mL (30-400); Iron 49 ug/dL (59-158); Percent Saturation 16.3 % (20-50); Total Iron Binding Capacity 299 mcg/dl; Unsaturated Iron Binding 250 ug/dL (112-347)
== END 2022-10-05 23:59 | disposition home or self-care (01) ==
PROVIDERS: PCP Family Medicine; Visit Provider Internal Medicine Hematology & Oncology
DX: D50.0 Iron deficiency anemia secondary to blood loss (chronic) (principal); F17.210 Nicotine dependence, cigarettes, uncomplicated; Z79.899 Other long term (current) drug therapy; Z86.79 Personal history of other diseases of the circulatory system
CPT/HCPCS: 36415; 82728; 83540; 83550; 85025; 86850; 86900; 99214

== ENCOUNTER 2022-09-10 13:45 | Outpatient (CLI) | payer MEDICARE, OTHER, SELFPAY ==
--- NOTE | 2022-09-10 13:30 | USCV_ITS ---
Gerardo Pardo Age: 87 Gender: M : 1935 Exam Date: 09/10/2022 14:19 Ordering Phys: Isiah Gonzalez MD ([email or web address]) Technologist: [place] [facility] [place] sob chest pain BP: 128 / 74 HR: 47 Rhythm: Sinus Technical Quality: Adequate MEASUREMENTS (Male / Female) Normal Values 2D ECHO LV Diastolic Diameter PLAX 4.6 cm 4.2 - 5.9 / 3.9 - 5.3 cm LV Systolic Diameter PLAX 2.4 cm IVS Diastolic Thickness 1.6 cm 0.6 - 1.0 / 0.6 - 0.9 cm IVS Systolic Thickness 1.8 cm LVPW Diastolic Thickness 1.8 cm 0.6 - 1.0 / 0.6 - 0.9 cm LVPW Systolic Thickness 1.6 cm LVOT Diameter 2.1 cm LV Ejection Fraction 2D Teich 78.2 % LV Ejection Fraction MOD 2C 68.9 % LV Ejection Fraction 2C AL 69.2 % LA Diameter 4.9 cm M-MODE Aortic Annulus Diameter 3.2 cm LA Ao Ratio MM 1.7 MV E Point Septal Separation 0.8 cm DOPPLER AV Peak Velocity 353.0 cm/s LVOT Peak Velocity 104.0 cm/s AV Area Cont Eq vti 1.3 cm squared AV Area Cont Eq pk 1.0 cm squared MV E' Velocity 9.0 cm/s TR Peak Velocity 295.0 cm/s TR Peak Gradient 34.8 mmHg TV Peak E Velocity 130.0 cm/s Right Atrial Pressure 3.0 mmHg Pulmonary Artery Systolic Pressu 37.8 mmHg FINDINGS Left Ventricle Normal left ventricular size and ejectioncfraction of EF 69 %. Mild left ventricular hypertrophy. Mild diffuse hypokinesia of the inferolateral wall region.Grade I/IV diastolic dysfunction (abnormal relaxation filling pattern), normal to mildly elevated filling pressures. Right Ventricle The right ventricle is normal in size and function. Right Atrium The right atrium is normal in size. Left Atrium Mildly increased left atrial size. Mitral Valve Thickened mitral valve. Moderate mitral annular calcification. Mild mitral valve regurgitation. Aortic Valve Moderate aortic valve stenosis, mean gradient 21 mmHg, MARBIN 1.3 cm squared. The peak velocity is 3.53 m/s with a peak gradient of 50 mmHg Tricuspid Valve Moderate tricuspid valve regurgitation. Estimated pulmonary artery peak systolic pressure of 38 mmHg Pulmonic Valve Pulmonic valve not well visualized. Pericardium Normal pericardium without effusion. Aorta Normal aortic annulus size. IVC Inferior vena cava not visualized. CONCLUSIONS Normal left ventricular size and ejectioncfraction of EF 69 %. Mild left ventricular hypertrophy. Mild diffuse hypokinesia of the inferolateral wall region.Grade I/IV diastolic dysfunction (abnormal relaxation filling pattern), normal to mildly elevated filling pressures. Moderate aortic valve stenosis, mean gradient 21 mmHg, MARBIN 1.3 cm squared. The peak velocity is 3.53 m/s with a peak gradient of 50 mmHg. Mildly increased left atrial size. Thickened mitral valve. Moderate mitral annular calcification. Mild mitral valve regurgitation. Moderate tricuspid valve regurgitation. Estimated pulmonary artery peak systolic pressure of 38 mmHg There is no pericardial effusion. There are no intracardiac masses. Compared to the study from 01/31/2021, the estimated pulmonary artery peak systolic pressure appears to have decreased. But because of the poor Doppler signals, this could be an underestimation. Dr Zachariah Rangel MD [facility] (Electronically Signed) Final Date: 17 September 2022 08:57 S
== END 2022-09-10 13:46 | disposition home or self-care (01) ==
LOC: RAD 13:51
PROVIDERS: PCP Family Medicine; Visit Provider Internal Medicine Cardiovascular Disease
DX: I35.0 Nonrheumatic aortic (valve) stenosis (principal)
CPT/HCPCS: 93306; 99214

== ENCOUNTER → 2022-10-08 15:03 | Outpatient (BNVA) | payer MEDICARE, OTHER, SELFPAY | PROVIDERS: PCP Family Medicine; Visit Provider Internal Medicine Hematology & Oncology | DX: D50.0 Iron deficiency anemia secondary to blood loss (chronic) (principal) | CPT/HCPCS: 99214 ==

== ENCOUNTER 2022-10-17 10:00 | Oncology outpatient (recurring) (ONCR) | payer MEDICARE, OTHER, SELFPAY ==
[2022-10-08 15:40] LABS: Basophils # 0.1 10^3/uL (0.0-0.1); Basophils % 0.8 %; Eosinophils # 0.3 10^3/uL (0.0-0.8); Eosinophils % 4.4 %; Hematocrit 34.1 % (42.0-52.0); Lymphocytes # 1.9 10^3/uL (0.8-4.8); Lymphocytes % 24.3 %; Mean Corpuscular HGB Conc 29.3 g/dL (30.0-36.0); Mean Corpuscular Volume 91.9 fl (80-94); Mean Platelet Volume 10.4 fL (7.4-10.4); Monocytes # 1.6 10^3/uL (0.2-0.9); Monocytes % 20.4 %; Neutrophils # 3.81 10^3/uL (1.8-7.7); Neutrophils % 49.7 %; Nucleated Red Blood Cells % 0 %; Platelet Count 354 10^3/cmm (130-400); Red Blood Count 3.71 10^6/uL (4.1-5.3); Red Cell Distribution Width 14.5 % (12.1-15.1); White Blood Count 7.7 10^3/uL (4.0-10.0)
[2022-10-08 16:18] LABS: Ferritin 22 ng/mL (30-400); Iron 16 ug/dL (59-158); Percent Saturation 4.8 % (20-50); Total Iron Binding Capacity 330 mcg/dl; Unsaturated Iron Binding 314 ug/dL (112-347)
[2022-10-10] MEDS: ferric carboxy (IVPB) 750 MG in sodium chloride 0.9% (100 ml) 100 ML 345 MG IV (11:02)
[2022-10-10 11:30] VITALS: BP 105/70; PULSE 64; TEMP 36.7; O2SAT 96
[2022-10-17] MEDS: ferric carboxy (IVPB) 750 MG in sodium chloride 0.9% (100 ml) 100 ML 345 MG IV (10:26)
[2022-10-17 11:23] VITALS: BP 112/72; PULSE 80; TEMP 36.6; O2SAT 95
== END 2022-11-05 23:59 | disposition home or self-care (01) ==
PROVIDERS: PCP Family Medicine; Visit Provider Internal Medicine Hematology & Oncology
DX: D50.0 Iron deficiency anemia secondary to blood loss (chronic) (principal); Z79.899 Other long term (current) drug therapy
CPT/HCPCS: 36415; 82728; 83540; 83550; 85025; 96365; 99214; J1439

== ENCOUNTER 2022-11-14 09:43 | Oncology outpatient (recurring) (ONCR) | payer MEDICARE, OTHER, SELFPAY ==
[2022-11-14 10:42] VITALS: BP 114/64; PULSE 83; RESP 18; TEMP 36.5; O2SAT 94
[2022-11-14 11:02] LABS: Basophils # 0.1 10^3/uL (0.0-0.1); Eosinophils # 0.3 10^3/uL (0.0-0.8); Eosinophils % 3.2 %; Hematocrit 35.9 % (42.0-52.0); Lymphocytes # 1.4 10^3/uL (0.8-4.8); Lymphocytes % 16.1 %; Mean Corpuscular HGB Conc 30.6 g/dL (30.0-36.0); Mean Corpuscular Hemoglobin 29.7 pg (28.0-34.0); Mean Platelet Volume 10.1 fL (7.4-10.4); Monocytes # 1.2 10^3/uL (0.2-0.9); Monocytes % 13.4 %; Neutrophils # 5.76 10^3/uL (1.8-7.7); Nucleated Red Blood Cells % 0 %; Platelet Count 293 10^3/cmm (130-400); Red Cell Distribution Width 16.6 % (12.1-15.1); White Blood Count 8.7 10^3/uL (4.0-10.0)
[2022-11-14 11:28] LABS: Ferritin 81 ng/mL (30-400); Iron 45 ug/dL (59-158); Percent Saturation 17.1 % (20-50); Total Iron Binding Capacity 263 mcg/dl; Unsaturated Iron Binding 218 ug/dL (112-347)
== END 2022-12-05 23:59 | disposition home or self-care (01) ==
PROVIDERS: PCP Family Medicine; Visit Provider Internal Medicine Hematology & Oncology
DX: F17.210 Nicotine dependence, cigarettes, uncomplicated; Z79.899 Other long term (current) drug therapy; Z86.79 Personal history of other diseases of the circulatory system; D50.9 Iron deficiency anemia, unspecified
CPT/HCPCS: 36415; 82728; 83540; 83550; 85025; 99214

== ENCOUNTER 2022-12-23 09:00 | Oncology outpatient (recurring) (ONCR) | payer MEDICARE, OTHER, SELFPAY ==
[2022-12-12 10:14] VITALS: BP 107/66; PULSE 89; RESP 18; TEMP 36.8; O2SAT 96
[2022-12-12 10:31] LABS: Basophils # 0.1 10^3/uL (0.0-0.1); Basophils % 0.8 %; Eosinophils # 0.3 10^3/uL (0.0-0.8); Eosinophils % 2.9 %; Hematocrit 36.6 % (42.0-52.0); Hemoglobin 11.3 g/dL (11.7-16.6); Lymphocytes # 1.3 10^3/uL (0.8-4.8); Lymphocytes % 14.6 %; Mean Corpuscular HGB Conc 30.9 g/dL (30.0-36.0); Mean Corpuscular Hemoglobin 28.7 pg (28.0-34.0); Mean Corpuscular Volume 92.9 fl (80-94); Mean Platelet Volume 10.3 fL (7.4-10.4); Monocytes % 11.9 %; Neutrophils # 6.01 10^3/uL (1.8-7.7); Neutrophils % 69.1 %; Nucleated Red Blood Cells % 0 %; Platelet Count 261 10^3/cmm (130-400); Red Blood Count 3.94 10^6/uL (4.1-5.3); Red Cell Distribution Width 14.6 % (12.1-15.1); White Blood Count 8.7 10^3/uL (4.0-10.0)
[2022-12-12 10:52] LABS: Ferritin 28 ng/mL (30-400); Iron 60 ug/dL (59-158); Percent Saturation 20.3 % (20-50); Total Iron Binding Capacity 295 mcg/dl; Unsaturated Iron Binding 235 ug/dL (112-347)
[2022-12-16] MEDS: sodium chloride 0.9% 250 ML 75 ML IV (14:18)
[2022-12-16] MEDS: ferric carboxy (IVPB) 750 MG in sodium chloride 0.9% (100 ml) 100 ML 345 MG IV (14:18)
[2022-12-16 14:55] VITALS: BP 124/66; PULSE 77; RESP 18; TEMP 36.8; O2SAT 94
[2022-12-23 09:25] VITALS: BMI 27.0
[2022-12-23 09:26] VITALS: BP 116/81; PULSE 95; RESP 18; TEMP 36.6; O2SAT 95
[2022-12-23] MEDS: ferric carboxy (IVPB) 750 MG in sodium chloride 0.9% (100 ml) 100 ML 345 MG IV (09:32)
[2022-12-23 10:07] VITALS: BP 108/65; PULSE 80; RESP 18; TEMP 36; O2SAT 97
== END 2023-01-05 23:59 | disposition home or self-care (01) ==
PROVIDERS: PCP Family Medicine; Visit Provider Internal Medicine Hematology & Oncology
DX: D50.9 Iron deficiency anemia, unspecified (principal); D50.0 Iron deficiency anemia secondary to blood loss (chronic)
CPT/HCPCS: 36415; 82728; 83540; 83550; 85025; 96365; 99214; J1439; J7050

== ENCOUNTER → 2023-01-13 10:37 | Outpatient (BNVA) | payer MEDICARE, OTHER, SELFPAY | PROVIDERS: PCP Family Medicine; Visit Provider Clinical Nurse Specialist Adult Health | DX: R82.71 Bacteriuria (principal); Z85.51 Personal history of malignant neoplasm of bladder | CPT/HCPCS: 81003 ==

== ENCOUNTER 2023-01-22 08:33 | Outpatient (CLI) | payer MEDICARE, OTHER, SELFPAY | END 2023-01-22 08:34 | disposition home or self-care (01) | LOC: LAB 08:38 | PROVIDERS: PCP Family Medicine; Visit Provider Nurse Practitioner Family | DX: D50.0 Iron deficiency anemia secondary to blood loss (chronic) (principal); Z79.899 Other long term (current) drug therapy | CPT/HCPCS: 87086 ==

== ENCOUNTER 2023-01-25 15:20 | Outpatient (CLI) | payer MEDICARE, OTHER, SELFPAY ==
[2023-01-25 16:12] LABS: Basophils # 0.1 10^3/uL (0.0-0.1); Basophils % 0.5 %; Eosinophils # 0.1 10^3/uL (0.0-0.8); Eosinophils % 0.9 %; Hematocrit 22.7 % (42.0-52.0); Hemoglobin 6.7 g/dL (11.7-16.6); Lymphocytes # 2.2 10^3/uL (0.8-4.8); Lymphocytes % 17.6 %; Mean Corpuscular HGB Conc 29.5 g/dL (30.0-36.0); Mean Corpuscular Hemoglobin 29.6 pg (28.0-34.0); Mean Corpuscular Volume 100.4 fl (80-94); Mean Platelet Volume 9.7 fL (7.4-10.4); Monocytes # 1.4 10^3/uL (0.2-0.9); Monocytes % 11.5 %; Neutrophils # 8.38 10^3/uL (1.8-7.7); Neutrophils % 68.3 %; Nucleated Red Blood Cells # 0.1 /100WBC; Nucleated Red Blood Cells % 0.8 %; Platelet Count 597 10^3/cmm (130-400); Red Blood Count 2.26 10^6/uL (4.1-5.3); Red Cell Distribution Width 19.3 % (12.1-15.1); White Blood Count 12.3 10^3/uL (4.0-10.0)
== END 2023-01-25 15:21 | disposition home or self-care (01) ==
PROVIDERS: PCP Family Medicine; Visit Provider Nurse Practitioner Family
DX: D50.0 Iron deficiency anemia secondary to blood loss (chronic) (principal); Z85.51 Personal history of malignant neoplasm of bladder
CPT/HCPCS: 36415; 85025

== ENCOUNTER 2023-02-05 13:45 | Oncology outpatient (recurring) (ONCR) | payer MEDICARE, OTHER, SELFPAY ==
[2023-01-20 09:06] VITALS: BP 116/68; PULSE 103; RESP 18; TEMP 36.6; O2SAT 97
[2023-01-20 09:27] LABS: Basophils # 0.1 10^3/uL (0.0-0.1); Basophils % 0.5 %; Eosinophils # 0.2 10^3/uL (0.0-0.8); Eosinophils % 1.5 %; Hematocrit 28.4 % (42.0-52.0); Hemoglobin 8.9 g/dL (11.7-16.6); Lymphocytes # 1.7 10^3/uL (0.8-4.8); Lymphocytes % 12.8 %; Mean Corpuscular HGB Conc 31.3 g/dL (30.0-36.0); Mean Corpuscular Hemoglobin 29.8 pg (28.0-34.0); Mean Platelet Volume 9.5 fL (7.4-10.4); Monocytes # 1.6 10^3/uL (0.2-0.9); Monocytes % 11.9 %; Neutrophils # 9.43 10^3/uL (1.8-7.7); Neutrophils % 72.2 %; Nucleated Red Blood Cells % 0 %; Platelet Count 535 10^3/cmm (130-400); Red Blood Count 2.99 10^6/uL (4.1-5.3); Red Cell Distribution Width 16.5 % (12.1-15.1); White Blood Count 13.1 10^3/uL (4.0-10.0)
[2023-01-20 09:52] LABS: Ferritin 268 ng/mL (30-400); Iron 45 ug/dL (59-158); Percent Saturation 18.6 % (20-50); Total Iron Binding Capacity 241 mcg/dl; Unsaturated Iron Binding 196 ug/dL (112-347)
[2023-01-26] VITALS (9 sets, daily range): BP systolic 95–114; BP diastolic 42–66; PULSE 78–97; RESP 16; TEMP 35.9–36.3; O2SAT 85–98
[2023-01-26 12:41] LABS: Basophils # 0.1 10^3/uL (0.0-0.1); Basophils % 0.5 %; Eosinophils # 0.1 10^3/uL (0.0-0.8); Eosinophils % 0.9 %; Hematocrit 22.8 % (42.0-52.0); Hemoglobin 6.8 g/dL (11.7-16.6); Lymphocytes # 1.4 10^3/uL (0.8-4.8); Lymphocytes % 12.9 %; Mean Corpuscular HGB Conc 29.8 g/dL (30.0-36.0); Mean Corpuscular Hemoglobin 30.5 pg (28.0-34.0); Mean Corpuscular Volume 102.2 fl (80-94); Mean Platelet Volume 9.9 fL (7.4-10.4); Monocytes # 1.3 10^3/uL (0.2-0.9); Monocytes % 12.5 %; Neutrophils # 7.54 10^3/uL (1.8-7.7); Neutrophils % 72.2 %; Nucleated Red Blood Cells % 0.3 %; Platelet Count 583 10^3/cmm (130-400); Red Blood Count 2.23 10^6/uL (4.1-5.3); Red Cell Distribution Width 19.4 % (12.1-15.1); White Blood Count 10.4 10^3/uL (4.0-10.0)
[2023-01-26] MEDS: diphenhydrAMINE 25 mg Capsule PO (13:36)
[2023-01-26] MEDS: acetaminophen 325 mg Tablet 650 MG PO (13:36)
[2023-01-26] MEDS: sodium chloride 0.9% 250 mL Bag IV (13:38)
[2023-01-26] MEDS: FUROsemide 10 mg/mL SDV 2mL 20 MG IVP (15:30)
[2023-02-05 14:00] VITALS: BP 97/60; PULSE 87; RESP 16; TEMP 36.8; O2SAT 97
[2023-02-05 14:12] LABS: Basophils # 0.1 10^3/uL (0.0-0.1); Basophils % 0.7 %; Eosinophils # 0.2 10^3/uL (0.0-0.8); Eosinophils % 2.3 %; Hematocrit 33.9 % (37-53); Lymphocytes # 1.7 10^3/uL (0.8-4.8); Lymphocytes % 19.9 %; Mean Corpuscular HGB Conc 30.7 g/dL (30-55); Mean Corpuscular Hemoglobin 28.7 pg (27-33); Mean Corpuscular Volume 93.4 fl (82-101); Mean Platelet Volume 10.3 fL (7.4-10.4); Monocytes % 12.4 %; Neutrophils # 5.41 10^3/uL (1.8-7.7); Neutrophils % 64.2 %; Nucleated Red Blood Cells % 0 %; Platelet Count 346 10^3/cmm (157-399); Red Blood Count 3.63 10^6/uL (3.85-5.65); Red Cell Distribution Width 17.5 % (12.1-15.1); White Blood Count 8.41 10^3/uL (3.29-11.43)
== END 2023-02-05 23:59 | disposition home or self-care (01) ==
PROVIDERS: PCP Family Medicine; Visit Provider Nurse Practitioner Family
DX: D50.0 Iron deficiency anemia secondary to blood loss (chronic) (principal)
CPT/HCPCS: 36415; 36430; 82728; 83540; 83550; 85025; 86850; 86900; 86920; 96374; 99214; J1940; J7050; P9016; P9040

== ENCOUNTER 2023-02-26 12:48 | Oncology outpatient (recurring) (ONCR) | payer MEDICARE, OTHER, SELFPAY ==
[2023-02-12 13:45] VITALS: BP 120/71; PULSE 89; RESP 16; TEMP 36.6; O2SAT 96
[2023-02-12 13:57] LABS: Basophils # 0.1 10^3/uL (0.0-0.1); Basophils % 0.9 %; Eosinophils # 0.2 10^3/uL (0.0-0.8); Eosinophils % 3.1 %; Hematocrit 33.6 % (37-53); Lymphocytes # 1.4 10^3/uL (0.8-4.8); Lymphocytes % 18.6 %; Mean Corpuscular HGB Conc 29.8 g/dL (30-55); Mean Corpuscular Hemoglobin 27.1 pg (27-33); Mean Corpuscular Volume 91.1 fl (82-101); Mean Platelet Volume 10.1 fL (7.4-10.4); Monocytes # 1.4 10^3/uL (0.2-0.9); Monocytes % 18.3 %; Neutrophils # 4.46 10^3/uL (1.8-7.7); Neutrophils % 58.6 %; Nucleated Red Blood Cells % 0 %; Platelet Count 242 10^3/cmm (157-399); Red Blood Count 3.69 10^6/uL (3.85-5.65); Red Cell Distribution Width 16.2 % (12.1-15.1); White Blood Count 7.63 10^3/uL (3.29-11.43)
[2023-02-18 10:22] VITALS: BP 95/61; PULSE 91; RESP 20; TEMP 36; O2SAT 96
[2023-02-18 11:13] LABS: Basophils # 0.1 10^3/uL (0.0-0.1); Basophils % 0.5 %; Eosinophils # 0.2 10^3/uL (0.0-0.8); Eosinophils % 1.5 %; Lymphocytes # 1.2 10^3/uL (0.8-4.8); Lymphocytes % 10.7 %; Mean Corpuscular HGB Conc 30.3 g/dL (30-55); Mean Corpuscular Hemoglobin 27.5 pg (27-33); Mean Corpuscular Volume 90.6 fl (82-101); Mean Platelet Volume 10.7 fL (7.4-10.4); Monocytes # 1.5 10^3/uL (0.2-0.9); Monocytes % 13.3 %; Neutrophils # 8.06 10^3/uL (1.8-7.7); Neutrophils % 73.3 %; Nucleated Red Blood Cells % 0 %; Platelet Count 384 10^3/cmm (157-399); Red Blood Count 3.42 10^6/uL (3.85-5.65); Red Cell Distribution Width 15.9 % (12.1-15.1); White Blood Count 11.01 10^3/uL (3.29-11.43)
[2023-02-18] MEDS: sodium chloride 0.9% 250 ML 75 ML IV (11:17)
[2023-02-18] MEDS: ferric carboxy (IVPB) 750 MG in sodium chloride 0.9% (100 ml) 100 ML 345 MG IV (11:23)
[2023-02-18 13:08] VITALS: BP 133/61; PULSE 86; RESP 18; TEMP 36.4; O2SAT 100
[2023-02-26 13:05] VITALS: BP 106/66; PULSE 88; RESP 16; TEMP 36.9; O2SAT 98
[2023-02-26 13:12] LABS: Basophils # 0.1 10^3/uL (0.0-0.1); Basophils % 0.8 %; Eosinophils # 0.2 10^3/uL (0.0-0.8); Eosinophils % 1.8 %; Hematocrit 31.9 % (37-53); Lymphocytes # 1.6 10^3/uL (0.8-4.8); Mean Corpuscular HGB Conc 30.1 g/dL (30-55); Mean Corpuscular Hemoglobin 28.5 pg (27-33); Mean Corpuscular Volume 94.7 fl (82-101); Mean Platelet Volume 10.2 fL (7.4-10.4); Monocytes # 1.2 10^3/uL (0.2-0.9); Monocytes % 10.8 %; Neutrophils # 7.73 10^3/uL (1.8-7.7); Neutrophils % 71.1 %; Nucleated Red Blood Cells % 0 %; Platelet Count 407 10^3/cmm (157-399); Red Blood Count 3.37 10^6/uL (3.85-5.65); Red Cell Distribution Width 18.6 % (12.1-15.1); White Blood Count 10.88 10^3/uL (3.29-11.43)
[2023-02-26 13:32] LABS: Ferritin 431 ng/mL (30-400); Iron 50 ug/dL (59-158); Percent Saturation 20.2 % (20-50); Total Iron Binding Capacity 247 mcg/dl; Unsaturated Iron Binding 197 ug/dL (112-347)
[2023-02-26] MEDS: ferric carboxy (IVPB) 750 MG in sodium chloride 0.9% (100 ml) 100 ML 345 MG IV (15:44)
[2023-02-26 16:30] VITALS: BP 135/60; PULSE 94; RESP 18; TEMP 36.1; O2SAT 96
== END 2023-03-07 23:59 | disposition home or self-care (01) ==
PROVIDERS: PCP Family Medicine; Visit Provider Nurse Practitioner Family
DX: D50.0 Iron deficiency anemia secondary to blood loss (chronic) (principal); Z85.51 Personal history of malignant neoplasm of bladder; I25.118 Atherosclerotic heart disease of native coronary artery with other forms of angina pectoris; F17.210 Nicotine dependence, cigarettes, uncomplicated
CPT/HCPCS: 36415; 82728; 83540; 83550; 85025; 86850; 86900; 96365; 99213; 99214; J1439; J7050

== ENCOUNTER → 2023-02-27 10:03 | Outpatient (BNVA) | payer MEDICARE, OTHER, SELFPAY | PROVIDERS: PCP Family Medicine; Visit Provider Nurse Practitioner Family | DX: I35.0 Nonrheumatic aortic (valve) stenosis (principal); I25.118 Atherosclerotic heart disease of native coronary artery with other forms of angina pectoris; I10 Essential (primary) hypertension; F17.210 Nicotine dependence, cigarettes, uncomplicated | CPT/HCPCS: 99214 ==

== ENCOUNTER 2023-03-26 08:33 | Oncology outpatient (recurring) (ONCR) | payer MEDICARE, OTHER, SELFPAY ==
[2023-03-12 14:00] VITALS: BP 106/61; PULSE 90; RESP 16; TEMP 36.6; O2SAT 93
[2023-03-12 14:12] LABS: Basophils # 0.1 10^3/uL (0.0-0.1); Basophils % 0.9 %; Eosinophils # 0.2 10^3/uL (0.0-0.8); Eosinophils % 2.4 %; Hematocrit 33.4 % (37-53); Lymphocytes # 1.3 10^3/uL (0.8-4.8); Lymphocytes % 17.2 %; Mean Corpuscular HGB Conc 31.1 g/dL (30-55); Mean Corpuscular Hemoglobin 30.9 pg (27-33); Mean Corpuscular Volume 99.1 fl (82-101); Mean Platelet Volume 10.1 fL (7.4-10.4); Monocytes # 0.8 10^3/uL (0.2-0.9); Monocytes % 11.2 %; Neutrophils # 5.08 10^3/uL (1.8-7.7); Neutrophils % 67.8 %; Nucleated Red Blood Cells % 0 %; Platelet Count 309 10^3/cmm (157-399); Red Blood Count 3.37 10^6/uL (3.85-5.65); Red Cell Distribution Width 17.9 % (12.1-15.1)
[2023-03-26 08:45] VITALS: BP 136/85; PULSE 97; RESP 16; TEMP 36.7; O2SAT 95
[2023-03-26 08:54] LABS: Basophils # 0.1 10^3/uL (0.0-0.1); Basophils % 0.9 %; Eosinophils # 0.3 10^3/uL (0.0-0.8); Eosinophils % 3.2 %; Lymphocytes # 1.5 10^3/uL (0.8-4.8); Mean Corpuscular HGB Conc 30.8 g/dL (30-55); Mean Corpuscular Hemoglobin 30.5 pg (27-33); Monocytes # 1.4 10^3/uL (0.2-0.9); Monocytes % 15.5 %; Neutrophils % 63.2 %; Nucleated Red Blood Cells % 0 %; Platelet Count 290 10^3/cmm (157-399); Red Blood Count 3.94 10^6/uL (3.85-5.65); Red Cell Distribution Width 15.4 % (12.1-15.1); White Blood Count 9.02 10^3/uL (3.29-11.43)
== END 2023-04-07 23:59 | disposition home or self-care (01) ==
PROVIDERS: Internal Medicine Medical Oncology; PCP Family Medicine; Visit Provider Nurse Practitioner Family
DX: D50.0 Iron deficiency anemia secondary to blood loss (chronic) (principal)
CPT/HCPCS: 36415; 85025; 86850; 86900; 99213

== ENCOUNTER 2023-03-30 10:11 | Outpatient (CLI) | payer OTHER, SELFPAY ==
--- NOTE | 2023-03-30 10:18 | USCV_ITS ---
Gerardo Pardo Age: 87 Gender: M : 1935 Exam Date: 03/30/2023 10:22 Ordering Phys: Yahir Marino DO Technologist: CT Exam Location: [facility] [place] Indication: bruit Risk Factors: Previous Vascular Surgery: Right Brachial BP: / Left Brachial BP: / Right Left Velocity (cm/s) Spectral Plaque Velocity (cm/s) Spectral Plaque Syst/Diast Broadening Syst/Diast Broadening 38.10/ 8.20 Prox CCA 63.60 / 12.50 39.60/ 7.60 Mid CCA 54.10 / 9.00 41.00/ 9.50 Distal CCA 50.70 / 10.40 71.00/ 15.60 Prox ICA 89.60 / 24.00 59.60/ 13.50 Mid ICA 108.50/ 29.00 72.20/ 17.30 Distal ICA 77.00 / 20.60 81.60 ECA 146.40 1.76 ICA/CCA 1.71 Antegrade Vertebral Antegrade 38.20/ 10.40 cm/s 54.60/ 15.20 cm/s Bi Subclavian Bi 91.80 79.40 FINDINGS Comparison: none available. No significant elevation of systolic or diastolic velocities. Diffuse bilateral scattered calcified plaque and intimal thickening throughout the common carotid arteries and extending through the bifurcation. Irregual plaque is extensive. Antegrade vertebral arteries. CONCLUSIONS Bilateral ICA stenosis less than 50%. Diffuse extensive bilateral plaque. Dr. Nettie Mitchell DO (Electronically Signed) Final Date: 30 March 2023 12:20 S
== END 2023-03-30 10:12 | disposition home or self-care (01) ==
LOC: RAD 10:12
PROVIDERS: PCP Family Medicine; Visit Provider Emergency Medicine Emergency Medical Services
DX: R09.89 Other specified symptoms and signs involving the circulatory and respiratory systems (principal); I65.23 Occlusion and stenosis of bilateral carotid arteries
CPT/HCPCS: 93880

== ENCOUNTER 2023-04-14 14:20 | Outpatient (CLI) | payer MEDICARE, OTHER, SELFPAY ==
--- NOTE | 2023-04-14 14:29 | XR_ITS ---
WS: [id number] Chest 2 views, 04/14/2023 Clinical Data: J40 - Bronchitis, not specified as acute or chronic Comparison: Portable chest, 10/20/2021 Findings: No nodules, masses or effusions are seen. The heart is normal. The pulmonary vascularity is not increased. No pneumonia or pneumothorax is seen. The diaphragms are flattened. The aortic arch a nd descending thoracic aorta show calcification and tortuosity. There is a dextroscoliosis of the mid thoracic spine. Impression: Atherosclerosis and hyperinflation.
== END 2023-04-14 14:21 | disposition home or self-care (01) ==
LOC: RAD 14:24
PROVIDERS: PCP Family Medicine; Visit Provider Nurse Practitioner Family
DX: J40 Bronchitis, not specified as acute or chronic (principal); I70.0 Atherosclerosis of aorta
CPT/HCPCS: 71046

== ENCOUNTER 2023-04-27 14:30 | Oncology outpatient (recurring) (ONCR) | payer MEDICARE, OTHER, SELFPAY ==
[2023-04-20 09:49] LABS: Basophils # 0.1 10^3/uL (0.0-0.1); Basophils % 0.4 %; Eosinophils # 0.3 10^3/uL (0.0-0.8); Eosinophils % 2.4 %; Hematocrit 36.6 % (37-53); Lymphocytes # 1.1 10^3/uL (0.8-4.8); Lymphocytes % 7.5 %; Mean Corpuscular HGB Conc 30.9 g/dL (30-55); Mean Corpuscular Hemoglobin 28.9 pg (27-33); Mean Corpuscular Volume 93.6 fl (82-101); Mean Platelet Volume 10.2 fL (7.4-10.4); Monocytes # 2.4 10^3/uL (0.2-0.9); Monocytes % 17.2 %; Neutrophils # 9.99 10^3/uL (1.8-7.7); Neutrophils % 71.1 %; Nucleated Red Blood Cells % 0 %; Platelet Count 338 10^3/cmm (157-399); Red Blood Count 3.91 10^6/uL (3.85-5.65); Red Cell Distribution Width 14.3 % (12.1-15.1); White Blood Count 14.05 10^3/uL (3.29-11.43)
[2023-04-20 10:16] LABS: Alanine Aminotransferase 10 U/L (0-41); Albumin Level 3.5 g/dL (3.5-5.2); Alkaline Phosphatase 111 U/L (40-130); Anion Gap 11.1 (5-19); Aspartate Amino Transferase 10 U/L (0-40); Blood Urea Nitrogen 22 mg/dL (8-23); Calcium 9.5 mg/dL (8.5-10.5); Carbon Dioxide 26 mmol/L (22-29); Chloride 106 mmol/L (98-107); Globulin 2.4 g/dL (1.3-4.6); Glucose 156 mg/dL (65-115); Osmolality Calculated 295 mOsm/kg (285-295); Potassium 4.1 mmol/L (3.5-5.1); Sodium 139 mmol/L (136-145); Total Bilirubin 0.2 mg/dL (0.15-1.2); Total Protein 5.9 g/dL (6.6-8.7)
[2023-04-20 11:07] LABS: Ferritin 45 ng/mL (30-400); Iron 26 ug/dL (59-158); Total Iron Binding Capacity 286 mcg/dl; Unsaturated Iron Binding 260 ug/dL (112-347)
[2023-04-20] MEDS: ferric carboxy (IVPB) 750 MG in sodium chloride 0.9% (100 ml) 100 ML 345 MG IV (13:44)
[2023-04-20 14:10] VITALS: BP 103/65; PULSE 88; RESP 16; TEMP 36.8; O2SAT 96
[2023-04-27 14:39] VITALS: BP 122/57; PULSE 87; RESP 20; TEMP 36.5; O2SAT 99
[2023-04-27] MEDS: ferric carboxy (IVPB) 750 MG in sodium chloride 0.9% (100 ml) 100 ML 345 MG IV (15:06)
[2023-04-27 15:42] VITALS: BP 122/64; PULSE 97; RESP 18; TEMP 36.6; O2SAT 97
== END 2023-05-07 23:59 | disposition home or self-care (01) ==
PROVIDERS: PCP Family Medicine; Visit Provider Nurse Practitioner Family
DX: D50.9 Iron deficiency anemia, unspecified (principal)
CPT/HCPCS: 36415; 80053; 82728; 83540; 83550; 85025; 96365; 99214; J1439

== ENCOUNTER 2023-05-25 10:00 | Oncology outpatient (recurring) (ONCR) | payer MEDICARE, OTHER, SELFPAY ==
[2023-05-18 11:29] VITALS: BP 121/69; PULSE 94; RESP 16; TEMP 36.6; O2SAT 93
[2023-05-18 11:50] LABS: Basophils # 0.1 10^3/uL (0.0-0.1); Basophils % 0.8 %; Eosinophils # 0.2 10^3/uL (0.0-0.8); Eosinophils % 2.2 %; Lymphocytes # 1.2 10^3/uL (0.8-4.8); Lymphocytes % 15.6 %; Mean Corpuscular HGB Conc 30.6 g/dL (30-55); Mean Corpuscular Hemoglobin 30.5 pg (27-33); Mean Corpuscular Volume 99.7 fl (82-101); Mean Platelet Volume 10.3 fL (7.4-10.4); Monocytes # 1.1 10^3/uL (0.2-0.9); Neutrophils % 66.9 %; Nucleated Red Blood Cells % 0 %; Platelet Count 331 10^3/cmm (157-399); Red Blood Count 3.61 10^6/uL (3.85-5.65); Red Cell Distribution Width 15.9 % (12.1-15.1); White Blood Count 7.77 10^3/uL (3.29-11.43)
[2023-05-18 12:10] LABS: Alanine Aminotransferase 12 U/L (0-41); Albumin Level 4.1 g/dL (3.5-5.2); Alkaline Phosphatase 114 U/L (40-130); Aspartate Amino Transferase 13 U/L (0-40); Blood Urea Nitrogen 20 mg/dL (8-23); Calcium 9.7 mg/dL (8.5-10.5); Carbon Dioxide 25 mmol/L (22-29); Chloride 104 mmol/L (98-107); Globulin 1.9 g/dL (1.3-4.6); Glucose 212 mg/dL (65-115); Iron 47 ug/dL (59-158); Osmolality Calculated 295 mOsm/kg (285-295); Percent Saturation 15.2 % (20-50); Sodium 138 mmol/L (136-145); Total Bilirubin 0.2 mg/dL (0.15-1.2); Total Iron Binding Capacity 308 mcg/dl; Unsaturated Iron Binding 261 ug/dL (112-347)
[2023-05-18 13:39] LABS: Estmated Average Glucose 80; Hemoglobin A1C 4.4 % (4.0-6.0)
[2023-05-18] MEDS: ferric carboxy (IVPB) 750 MG in sodium chloride 0.9% (100 ml) 100 ML 345 MG IV (15:06)
[2023-05-18 15:31] VITALS: BP 118/72; PULSE 87; RESP 18; TEMP 36.8; O2SAT 95
[2023-05-25 10:17] VITALS: BP 116/63; PULSE 78; RESP 17; TEMP 35.6; O2SAT 98
[2023-05-25] MEDS: sodium chloride 0.9% 250 ML 75 ML IV (10:28)
[2023-05-25] MEDS: ferric carboxy (IVPB) 750 MG in sodium chloride 0.9% (100 ml) 100 ML 345 MG IV (10:35)
[2023-05-25 11:17] VITALS: BP 118/55; PULSE 77; RESP 17; TEMP 36.1; O2SAT 96
== END 2023-06-07 23:59 | disposition home or self-care (01) ==
PROVIDERS: PCP Family Medicine; Visit Provider Nurse Practitioner Family
DX: D50.9 Iron deficiency anemia, unspecified (principal)
CPT/HCPCS: 36415; 80053; 83036; 83540; 83550; 85025; 86850; 86900; 96365; 99214; J1439; J7050

== ENCOUNTER → 2023-06-10 09:00 | Outpatient (BNVA) | payer MEDICARE, OTHER, SELFPAY | PROVIDERS: PCP Family Medicine; Visit Provider Family Medicine | DX: N39.0 Urinary tract infection, site not specified (principal) | CPT/HCPCS: 81003; 87077; 87086; 87184 ==

== ENCOUNTER 2023-06-30 12:45 | Oncology outpatient (recurring) (ONCR) | payer MEDICARE, OTHER, SELFPAY ==
[2023-06-25 15:19] LABS: Basophils # 0.1 10^3/uL (0.0-0.1); Basophils % 0.3 %; Eosinophils % 0.1 %; Lymphocytes # 1.3 10^3/uL (0.8-4.8); Lymphocytes % 8.6 %; Mean Corpuscular HGB Conc 31.5 g/dL (30-55); Mean Corpuscular Hemoglobin 30.6 pg (27-33); Mean Corpuscular Volume 97.1 fl (82-101); Monocytes # 0.8 10^3/uL (0.2-0.9); Neutrophils # 13.03 10^3/uL (1.8-7.7); Neutrophils % 85.1 %; Nucleated Red Blood Cells % 0 %; Platelet Count 351 10^3/cmm (157-399); Red Cell Distribution Width 14.1 % (12.1-15.1); White Blood Count 15.32 10^3/uL (3.29-11.43)
[2023-06-25 15:46] LABS: Alanine Aminotransferase 14 U/L (0-41); Albumin Level 3.9 g/dL (3.5-5.2); Alkaline Phosphatase 143 U/L (40-130); Anion Gap 14.3 (5-19); Aspartate Amino Transferase 14 U/L (0-40); Blood Urea Nitrogen 29 mg/dL (8-23); Calcium 9.5 mg/dL (8.5-10.5); Carbon Dioxide 23 mmol/L (22-29); Chloride 106 mmol/L (98-107); Ferritin 161 ng/mL (30-400); Globulin 2.3 g/dL (1.3-4.6); Glucose 237 mg/dL (65-115); Iron 26 ug/dL (59-158); Osmolality Calculated 302 mOsm/kg (285-295); Percent Saturation 13.5 % (20-50); Potassium 4.3 mmol/L (3.5-5.1); Sodium 139 mmol/L (136-145); Total Bilirubin 0.2 mg/dL (0.15-1.2); Total Iron Binding Capacity 192 mcg/dl; Total Protein 6.2 g/dL (6.6-8.7); Unsaturated Iron Binding 166 ug/dL (112-347)
== END 2023-07-08 23:59 | disposition home or self-care (01) ==
PROVIDERS: PCP Family Medicine; Visit Provider Nurse Practitioner Family
DX: D50.9 Iron deficiency anemia, unspecified (principal); D50.0 Iron deficiency anemia secondary to blood loss (chronic); Z85.51 Personal history of malignant neoplasm of bladder; I25.118 Atherosclerotic heart disease of native coronary artery with other forms of angina pectoris; F17.200 Nicotine dependence, unspecified, uncomplicated; Z53.9 Procedure and treatment not carried out, unspecified reason
CPT/HCPCS: 36415; 80053; 82728; 83540; 83550; 85025; 86850; 86900; 87086; 99214

== ENCOUNTER 2023-08-04 13:30 | Oncology outpatient (recurring) (ONCR) | payer MEDICARE, OTHER, SELFPAY ==
[2023-07-28 10:38] LABS: Basophils # 0.1 10^3/uL (0.0-0.1); Basophils % 0.7 %; Eosinophils # 0.2 10^3/uL (0.0-0.8); Eosinophils % 2.3 %; Hematocrit 37.7 % (37-53); Lymphocytes # 1.5 10^3/uL (0.8-4.8); Mean Corpuscular Hemoglobin 28.3 pg (27-33); Mean Corpuscular Volume 91.3 fl (82-101); Mean Platelet Volume 10.6 fL (7.4-10.4); Neutrophils # 5.85 10^3/uL (1.8-7.7); Neutrophils % 67.7 %; Nucleated Red Blood Cells % 0 %; Platelet Count 355 10^3/cmm (157-399); Red Blood Count 4.13 10^6/uL (3.85-5.65); Red Cell Distribution Width 14.6 % (12.1-15.1); White Blood Count 8.65 10^3/uL (3.29-11.43)
[2023-07-28 10:51] LABS: Alanine Aminotransferase 10 U/L (0-41); Albumin Level 3.9 g/dL (3.5-5.2); Alkaline Phosphatase 157 U/L (40-130); Aspartate Amino Transferase 15 U/L (0-40); Blood Urea Nitrogen 16 mg/dL (8-23); Calcium 9.5 mg/dL (8.5-10.5); Carbon Dioxide 22 mmol/L (22-29); Chloride 106 mmol/L (98-107); Ferritin 44 ng/mL (30-400); Globulin 2.4 g/dL (1.3-4.6); Glucose 216 mg/dL (65-115); Iron 33 ug/dL (59-158); Osmolality Calculated 296 mOsm/kg (285-295); Percent Saturation 11.5 % (20-50); Sodium 139 mmol/L (136-145); Total Bilirubin 0.2 mg/dL (0.15-1.2); Total Iron Binding Capacity 285 mcg/dl; Total Protein 6.3 g/dL (6.6-8.7); Unsaturated Iron Binding 252 ug/dL (112-347)
[2023-07-28] MEDS: ferric carboxy (IVPB) 750 MG in sodium chloride 0.9% (100 ml) 100 ML 345 MG IV (12:24)
[2023-07-28 12:51] VITALS: BP 110/62; PULSE 80; RESP 16; O2SAT 92
[2023-07-31 13:35] LABS: Soluble Transferrin Receptor 2.54 mg/L (0.76-1.76)
[2023-08-04 13:46] VITALS: BP 110/55; PULSE 81; RESP 18; TEMP 36.6; O2SAT 92
[2023-08-04] MEDS: ferric carboxy (IVPB) 750 MG in sodium chloride 0.9% (100 ml) 100 ML 345 MG IV (13:53)
[2023-08-04 14:32] VITALS: BP 140/67; PULSE 68; RESP 18; TEMP 36.6; O2SAT 94
== END 2023-08-06 23:59 | disposition home or self-care (01) ==
PROVIDERS: Internal Medicine; PCP Family Medicine; Visit Provider Nurse Practitioner Family
DX: D50.9 Iron deficiency anemia, unspecified (principal); Z53.9 Procedure and treatment not carried out, unspecified reason
CPT/HCPCS: 36415; 80053; 82728; 83540; 83550; 84238; 85025; 96365; 99214; J1439

== ENCOUNTER 2023-09-01 12:40 | Oncology outpatient (recurring) (ONCR) | payer MEDICARE, OTHER, SELFPAY ==
[2023-09-01 13:55] LABS: Basophils # 0.1 10^3/uL (0.0-0.1); Basophils % 0.6 %; Eosinophils # 0.2 10^3/uL (0.0-0.8); Eosinophils % 2.1 %; Hematocrit 49.2 % (37-53); Lymphocytes # 1.7 10^3/uL (0.8-4.8); Lymphocytes % 18.5 %; Mean Corpuscular HGB Conc 32.5 g/dL (30-55); Mean Corpuscular Hemoglobin 29.5 pg (27-33); Mean Corpuscular Volume 90.8 fl (82-101); Mean Platelet Volume 10.4 fL (7.4-10.4); Monocytes # 1.4 10^3/uL (0.2-0.9); Monocytes % 14.9 %; Neutrophils # 5.91 10^3/uL (1.8-7.7); Neutrophils % 63.5 %; Nucleated Red Blood Cells % 0 %; Platelet Count 303 10^3/cmm (157-399); Red Blood Count 5.42 10^6/uL (3.85-5.65); Red Cell Distribution Width 15.4 % (12.1-15.1); White Blood Count 9.33 10^3/uL (3.29-11.43)
[2023-09-01 14:11] LABS: Alanine Aminotransferase 9 U/L (0-41); Alkaline Phosphatase 146 U/L (40-130); Anion Gap 14.3 (5-19); Aspartate Amino Transferase 14 U/L (0-40); Blood Urea Nitrogen 17 mg/dL (8-23); Calcium 10.2 mg/dL (8.5-10.5); Carbon Dioxide 26 mmol/L (22-29); Chloride 103 mmol/L (98-107); Creatinine Clr Calc Pharmacy 50.7895; Ferritin 405 ng/mL (30-400); Globulin 2.7 g/dL (1.3-4.6); Glucose 155 mg/dL (65-115); Iron 62 ug/dL (59-158); Osmolality Calculated 293 mOsm/kg (285-295); Percent Saturation 28.9 % (20-50); Potassium 4.3 mmol/L (3.5-5.1); Sodium 139 mmol/L (136-145); Total Bilirubin 0.2 mg/dL (0.15-1.2); Total Iron Binding Capacity 214 mcg/dl; Total Protein 6.7 g/dL (6.6-8.7); Unsaturated Iron Binding 152 ug/dL (112-347)
[2023-09-01 14:46] LABS: Estmated Average Glucose 128; Hemoglobin A1C 6.1 % (4.0-6.0)
== END 2023-09-06 23:59 | disposition home or self-care (01) ==
PROVIDERS: Internal Medicine Medical Oncology; PCP Family Medicine; Visit Provider Nurse Practitioner Family
DX: D50.9 Iron deficiency anemia, unspecified (principal); D50.0 Iron deficiency anemia secondary to blood loss (chronic); Z85.51 Personal history of malignant neoplasm of bladder; I25.118 Atherosclerotic heart disease of native coronary artery with other forms of angina pectoris; F17.200 Nicotine dependence, unspecified, uncomplicated; Z53.9 Procedure and treatment not carried out, unspecified reason; E11.69 Type 2 diabetes mellitus with other specified complication; E78.5 Hyperlipidemia, unspecified
CPT/HCPCS: 36415; 80053; 82728; 83036; 83540; 83550; 85025; 99213

== ENCOUNTER 2023-12-02 12:32 | Oncology outpatient (recurring) (ONCR) | payer MEDICARE, OTHER, SELFPAY ==
[2023-12-02 13:08] LABS: Basophils # 0.1 10^3/uL (0.0-0.1); Basophils % 0.5 %; Eosinophils # 0.4 10^3/uL (0.0-0.8); Eosinophils % 3.3 %; Hematocrit 40.6 % (37-53); Lymphocytes % 18.4 %; Mean Corpuscular HGB Conc 33.3 g/dL (30-55); Mean Corpuscular Hemoglobin 29.2 pg (27-33); Mean Corpuscular Volume 87.9 fl (82-101); Mean Platelet Volume 10.3 fL (7.4-10.4); Monocytes # 1.6 10^3/uL (0.2-0.9); Monocytes % 14.6 %; Neutrophils # 6.82 10^3/uL (1.8-7.7); Neutrophils % 62.6 %; Nucleated Red Blood Cells % 0 %; Platelet Count 328 10^3/cmm (157-399); Red Blood Count 4.62 10^6/uL (3.85-5.65); Red Cell Distribution Width 14.4 % (12.1-15.1); White Blood Count 10.91 10^3/uL (3.29-11.43)
[2023-12-02 13:28] LABS: Alanine Aminotransferase 11 U/L (0-41); Albumin Level 3.9 g/dL (3.5-5.2); Alkaline Phosphatase 100 U/L (40-130); Anion Gap 14.3 (5-19); Aspartate Amino Transferase 11 U/L (0-40); Blood Urea Nitrogen 16 mg/dL (8-23); Calcium 9.6 mg/dL (8.5-10.5); Carbon Dioxide 24 mmol/L (22-29); Chloride 106 mmol/L (98-107); Globulin 2.4 g/dL (1.3-4.6); Glucose 164 mg/dL (65-115); Osmolality Calculated 295 mOsm/kg (285-295); Potassium 4.3 mmol/L (3.5-5.1); Sodium 140 mmol/L (136-145); Total Bilirubin 0.3 mg/dL (0.15-1.2); Total Protein 6.3 g/dL (6.6-8.7)
[2023-12-02 13:48] LABS: Ferritin 123 ng/mL (30-400); Iron 52 ug/dL (59-158); Total Iron Binding Capacity 226 mcg/dl; Unsaturated Iron Binding 174 ug/dL (112-347)
== END 2023-12-06 23:59 | disposition home or self-care (01) ==
PROVIDERS: Internal Medicine Medical Oncology; PCP Family Medicine; Visit Provider Nurse Practitioner Family
DX: D50.0 Iron deficiency anemia secondary to blood loss (chronic)
CPT/HCPCS: 36415; 80053; 82728; 83540; 83550; 85025; 99213

== ENCOUNTER 2023-12-30 13:12 | Oncology outpatient (recurring) (ONCR) | payer MEDICARE, OTHER, SELFPAY ==
[2023-12-30 13:49] LABS: Basophils # 0.1 10^3/uL (0.0-0.1); Basophils % 0.7 %; Eosinophils # 0.3 10^3/uL (0.0-0.8); Eosinophils % 3.1 %; Hematocrit 40.4 % (37-53); Lymphocytes # 1.7 10^3/uL (0.8-4.8); Lymphocytes % 18.1 %; Mean Corpuscular HGB Conc 32.7 g/dL (30-55); Mean Corpuscular Hemoglobin 30.1 pg (27-33); Monocytes # 1.3 10^3/uL (0.2-0.9); Monocytes % 14.1 %; Neutrophils # 5.99 10^3/uL (1.8-7.7); Neutrophils % 63.3 %; Nucleated Red Blood Cells % 0 %; Platelet Count 307 10^3/cmm (157-399); Red Blood Count 4.39 10^6/uL (3.85-5.65); Red Cell Distribution Width 14.9 % (12.1-15.1); White Blood Count 9.46 10^3/uL (3.29-11.43)
[2023-12-30 14:07] LABS: Alanine Aminotransferase 10 U/L (0-41); Alkaline Phosphatase 89 U/L (40-130); Anion Gap 15.4 (5-19); Aspartate Amino Transferase 14 U/L (0-40); Blood Urea Nitrogen 21 mg/dL (8-23); Calcium 9.8 mg/dL (8.5-10.5); Carbon Dioxide 25 mmol/L (22-29); Chloride 103 mmol/L (98-107); Ferritin 49 ng/mL (30-400); Globulin 2.4 g/dL (1.3-4.6); Glucose 196 mg/dL (65-115); Iron 53 ug/dL (59-158); Osmolality Calculated 296 mOsm/kg (285-295); Percent Saturation 19.8 % (20-50); Potassium 4.4 mmol/L (3.5-5.1); Sodium 139 mmol/L (136-145); Total Bilirubin 0.3 mg/dL (0.15-1.2); Total Iron Binding Capacity 267 mcg/dl; Total Protein 6.4 g/dL (6.6-8.7); Unsaturated Iron Binding 214 ug/dL (112-347)
== END 2024-01-06 23:59 | disposition home or self-care (01) ==
LOC: ONCMED 13:12
PROVIDERS: PCP Family Medicine; Visit Provider Nurse Practitioner Family
DX: D50.9 Iron deficiency anemia, unspecified (principal); Z79.899 Other long term (current) drug therapy
CPT/HCPCS: 36415; 80053; 82728; 83540; 83550; 85025

== ENCOUNTER 2024-02-03 12:57 | Oncology outpatient (recurring) (ONCR) | payer MEDICARE, OTHER, SELFPAY ==
[2024-02-03 13:56] LABS: Basophils # 0.1 10^3/uL (0.0-0.1); Basophils % 0.7 %; Eosinophils # 0.4 10^3/uL (0.0-0.8); Hematocrit 41.1 % (37-53); Lymphocytes # 1.5 10^3/uL (0.8-4.8); Lymphocytes % 15.4 %; Mean Corpuscular HGB Conc 32.1 g/dL (30-55); Mean Corpuscular Hemoglobin 29.1 pg (27-33); Mean Corpuscular Volume 90.7 fl (82-101); Mean Platelet Volume 10.6 fL (7.4-10.4); Monocytes # 1.7 10^3/uL (0.2-0.9); Monocytes % 17.2 %; Neutrophils # 6.17 10^3/uL (1.8-7.7); Neutrophils % 62.3 %; Nucleated Red Blood Cells % 0 %; Platelet Count 308 10^3/cmm (157-399); Red Blood Count 4.53 10^6/uL (3.85-5.65); Red Cell Distribution Width 13.6 % (12.1-15.1)
[2024-02-03 14:12] LABS: Alanine Aminotransferase 11 U/L (0-41); Alkaline Phosphatase 94 U/L (40-130); Anion Gap 16.1 (5-19); Aspartate Amino Transferase 13 U/L (0-40); Blood Urea Nitrogen 21 mg/dL (8-23); Calcium 9.9 mg/dL (8.5-10.5); Carbon Dioxide 23 mmol/L (22-29); Chloride 105 mmol/L (98-107); Ferritin 28 ng/mL (30-400); Globulin 2.2 g/dL (1.3-4.6); Glucose 196 mg/dL (65-115); Iron 43 ug/dL (59-158); Osmolality Calculated 298 mOsm/kg (285-295); Percent Saturation 15.9 % (20-50); Potassium 4.1 mmol/L (3.5-5.1); Sodium 140 mmol/L (136-145); Total Bilirubin 0.2 mg/dL (0.15-1.2); Total Iron Binding Capacity 270 mcg/dl; Total Protein 6.2 g/dL (6.6-8.7); Unsaturated Iron Binding 227 ug/dL (112-347)
== END 2024-02-06 23:59 | disposition home or self-care (01) ==
PROVIDERS: PCP Family Medicine; Visit Provider Nurse Practitioner Family
DX: D50.0 Iron deficiency anemia secondary to blood loss (chronic); Z53.9 Procedure and treatment not carried out, unspecified reason; Z85.51 Personal history of malignant neoplasm of bladder
CPT/HCPCS: 36415; 80053; 82728; 83540; 83550; 85025; 99214

== ENCOUNTER 2024-02-11 13:32 | Oncology outpatient (recurring) (ONCR) | payer MEDICARE, OTHER, SELFPAY ==
[2024-02-11] MEDS: ferric carboxy (PYXIS) 750 MG in sodium chloride 0.9% (100 ml) 100 ML 345 MG IV (14:22)
== END 2024-03-07 23:59 | disposition home or self-care (01) ==
LOC: ONCMED 13:32
PROVIDERS: PCP Family Medicine; Visit Provider Nurse Practitioner Family
DX: Z79.899 Other long term (current) drug therapy; D50.9 Iron deficiency anemia, unspecified
CPT/HCPCS: 96365; J1439

== ENCOUNTER 2024-03-22 15:22 | Oncology outpatient (recurring) (ONCR) | payer MEDICARE, OTHER, SELFPAY ==
[2024-03-22 15:42] LABS: Basophils # 0.1 10^3/uL (0.0-0.1); Basophils % 0.8 %; Eosinophils # 0.3 10^3/uL (0.0-0.8); Eosinophils % 3.5 %; Hematocrit 41.7 % (37-53); Lymphocytes # 1.8 10^3/uL (0.8-4.8); Lymphocytes % 21.5 %; Mean Corpuscular HGB Conc 31.9 g/dL (30-55); Mean Corpuscular Hemoglobin 29.4 pg (27-33); Mean Corpuscular Volume 92.1 fl (82-101); Mean Platelet Volume 10.3 fL (7.4-10.4); Monocytes # 1.5 10^3/uL (0.2-0.9); Monocytes % 17.8 %; Neutrophils # 4.61 10^3/uL (1.8-7.7); Nucleated Red Blood Cells % 0 %; Platelet Count 294 10^3/cmm (157-399); Red Blood Count 4.53 10^6/uL (3.85-5.65); Red Cell Distribution Width 14.9 % (12.1-15.1); White Blood Count 8.24 10^3/uL (3.29-11.43)
[2024-03-22 15:59] LABS: Alanine Aminotransferase 12 U/L (0-41); Alkaline Phosphatase 102 U/L (40-130); Aspartate Amino Transferase 13 U/L (0-40); Blood Urea Nitrogen 18 mg/dL (8-23); Calcium 9.6 mg/dL (8.5-10.5); Carbon Dioxide 26 mmol/L (22-29); Chloride 104 mmol/L (98-107); Creatinine Clr Calc Pharmacy 42.9673; Ferritin 85 ng/mL (30-400); Globulin 2.3 g/dL (1.3-4.6); Glucose 175 mg/dL (65-115); Iron 81 ug/dL (59-158); Osmolality Calculated 292 mOsm/kg (285-295); Percent Saturation 29.7 % (20-50); Sodium 138 mmol/L (136-145); Total Bilirubin 0.2 mg/dL (0.15-1.2); Total Iron Binding Capacity 272 mcg/dl; Total Protein 6.3 g/dL (6.6-8.7); Unsaturated Iron Binding 191 ug/dL (112-347)
[2024-03-22 16:50] LABS: Anion Gap 12.3 (5-19); Potassium 4.3 mmol/L (3.5-5.1)
== END 2024-04-07 23:59 | disposition home or self-care (01) ==
PROVIDERS: Nurse Practitioner Family; PCP Family Medicine; Visit Provider Nurse Practitioner Family
DX: E61.1 Iron deficiency (principal); Z79.899 Other long term (current) drug therapy
CPT/HCPCS: 36415; 80053; 82728; 83540; 83550; 85025; 99214

== ENCOUNTER 2024-05-16 11:29 | Oncology outpatient (recurring) (ONCR) | payer MEDICARE, OTHER, SELFPAY ==
[2024-05-16 12:01] LABS: Basophils # 0.1 10^3/uL (0.0-0.1); Basophils % 0.8 %; Eosinophils # 0.2 10^3/uL (0.0-0.8); Eosinophils % 2.3 %; Lymphocytes # 1.8 10^3/uL (0.8-4.8); Lymphocytes % 17.8 %; Mean Corpuscular HGB Conc 32.6 g/dL (30-55); Mean Corpuscular Hemoglobin 29.1 pg (27-33); Mean Corpuscular Volume 89.4 fl (82-101); Mean Platelet Volume 10.1 fL (7.4-10.4); Monocytes # 1.6 10^3/uL (0.2-0.9); Monocytes % 16.4 %; Neutrophils # 6.15 10^3/uL (1.8-7.7); Neutrophils % 62.1 %; Nucleated Red Blood Cells % 0 %; Platelet Count 298 10^3/cmm (157-399); Red Blood Count 4.81 10^6/uL (3.85-5.65); Red Cell Distribution Width 13.8 % (12.1-15.1); White Blood Count 9.92 10^3/uL (3.29-11.43)
[2024-05-16 12:05] LABS: Reticulocyte % 2.7 % (0.5-2.0)
[2024-05-16 12:24] LABS: Alanine Aminotransferase 13 U/L (0-41); Albumin Level 3.9 g/dL (3.5-5.2); Alkaline Phosphatase 90 U/L (40-130); Aspartate Amino Transferase 15 U/L (0-40); Blood Urea Nitrogen 23 mg/dL (8-23); Calcium 10.4 mg/dL (8.5-10.5); Carbon Dioxide 24 mmol/L (22-29); Chloride 104 mmol/L (98-107); Creatinine Clr Calc Pharmacy 51.3035; Ferritin 33 ng/mL (30-400); Globulin 2.6 g/dL (1.3-4.6); Glucose 155 mg/dL (65-115); Iron 100 ug/dL (59-158); Osmolality Calculated 293 mOsm/kg (285-295); Percent Saturation 32.1 % (20-50); Sodium 138 mmol/L (136-145); Total Bilirubin 0.2 mg/dL (0.15-1.2); Total Iron Binding Capacity 311 mcg/dl; Total Protein 6.5 g/dL (6.6-8.7); Unsaturated Iron Binding 211 ug/dL (112-347)
[2024-05-16 12:31] LABS: Anion Gap 14.7 (5-19); Lactate Dehydrogenase 145 U/L (135-225); Potassium 4.7 mmol/L (3.5-5.1)
[2024-05-16 12:36] LABS: Vitamin B12 428 pg/mL (232-1245)
[2024-05-16 12:45] LABS: Folate Level 14.5 ng/mL (4.5-32.2)
[2024-05-20 14:21] LABS: Soluble Transferrin Receptor 1.56 mg/L (0.76-1.76)
== END 2024-06-07 23:59 | disposition home or self-care (01) ==
PROVIDERS: Internal Medicine Hematology & Oncology; PCP Family Medicine; Visit Provider Nurse Practitioner Family
DX: E61.1 Iron deficiency (principal); Z79.899 Other long term (current) drug therapy
CPT/HCPCS: 36415; 80053; 82607; 82728; 82746; 83540; 83550; 83615; 84238; 85025; 85045; 99213

== ENCOUNTER 2024-08-04 08:58 | Oncology outpatient (recurring) (ONCR) | payer MEDICARE, OTHER, SELFPAY ==
[2024-08-03 15:49] LABS: Basophils # 0.1 10^3/uL (0.0-0.1); Basophils % 0.5 %; Eosinophils # 0.2 10^3/uL (0.0-0.8); Eosinophils % 1.8 %; Hematocrit 22.6 % (37-53); Lymphocytes # 2.3 10^3/uL (0.8-4.8); Mean Corpuscular HGB Conc 29.2 g/dL (30-55); Mean Corpuscular Hemoglobin 25.4 pg (27-33); Mean Corpuscular Volume 86.9 fl (82-101); Mean Platelet Volume 10.4 fL (7.4-10.4); Monocytes # 1.9 10^3/uL (0.2-0.9); Monocytes % 14.3 %; Neutrophils # 8.38 10^3/uL (1.8-7.7); Neutrophils % 64.6 %; Nucleated Red Blood Cells % 0.2 %; Platelet Count 351 10^3/cmm (157-399); Red Cell Distribution Width 15.3 % (12.1-15.1); White Blood Count 12.99 10^3/uL (3.29-11.43)
[2024-08-03 15:59] LABS: Alanine Aminotransferase 8 U/L (0-41); Albumin Level 3.8 g/dL (3.5-5.2); Alkaline Phosphatase 92 U/L (40-130); Anion Gap 15.2 (5-19); Aspartate Amino Transferase 11 U/L (0-40); Blood Urea Nitrogen 26 mg/dL (8-23); Calcium 9.4 mg/dL (8.5-10.5); Carbon Dioxide 21 mmol/L (22-29); Chloride 107 mmol/L (98-107); Creatinine Clr Calc Pharmacy 39.6928; Ferritin 8 ng/mL (30-400); Globulin 2.1 g/dL (1.3-4.6); Glucose 197 mg/dL (65-115); Iron 15 ug/dL (59-158); Osmolality Calculated 298 mOsm/kg (285-295); Percent Saturation 4.2 % (20-50); Potassium 4.2 mmol/L (3.5-5.1); Sodium 139 mmol/L (136-145); Total Bilirubin 0.2 mg/dL (0.15-1.2); Total Iron Binding Capacity 355 mcg/dl; Total Protein 5.9 g/dL (6.6-8.7); Unsaturated Iron Binding 340 ug/dL (112-347)
[2024-08-04] VITALS (12 sets, daily range): BP systolic 84–130; BP diastolic 51–79; PULSE 75–92; RESP 17–18; TEMP 35.5–36.8; O2SAT 91–97
[2024-08-04] MEDS: FUROsemide 10 mg/mL SDV 2mL 20 MG IVP (12:13)
== END 2024-08-05 23:59 | disposition home or self-care (01) ==
PROVIDERS: Nurse Practitioner; PCP Family Medicine; Visit Provider Internal Medicine
DX: E61.1 Iron deficiency (principal); Z79.899 Other long term (current) drug therapy
CPT/HCPCS: 36430; 80053; 82728; 83540; 83550; 85025; 86850; 86900; 86920; 99214; J1940; P9016